=== PATIENT | female | born 1990 | race American Indian/Alaskan Native ===

== ENCOUNTER 2017-05-20 06:13 | Emergency (ER) | payer OTHER ==
[~2017-05-20] VITALS: Ht 172.7 cm; Wt 86.2 kg
--- OUTSIDE RECORDS SUMMARY | ~2017-05-20 | XMS | Clinical Summary ---
Demographics + + + | Address | [address] | | | [place] [address] | + + + | Home Phone | | + + + | Preferred Language | Unknown | + + + | Marital Status | Single | + + + | Christianity Affiliation | Unknown | + + + | Race | White | + + + | Ethnic Group | Not or | + + + Author + + + | Author | [facility] | + + + | Organization | [facility] | + + + | Address | Unknown | + + + | Phone | Unavailable | + + + Support + + + + + | Name | Relationship | Address | Phone | + + + + + | , JESSE DIAZ | ECON | [address] | | | | | [place] | | | | | [address] | | + + + + + | JOE WILSON | ECON | [address] | | | | | [place] | | | | | [address] | | + + + + + Care Team Providers + +------+-------+ | Care Truck Loader Name | Role | Phone | + +------+-------+ | Robert Zelaya | PP | tel | + +------+-------+ Source Comments COOKIE is fully live on both EpicCare Ambulatory and EpicCare InPatient.[facility] Allergies + + + + + + | Active Allergy | Reactions | Severity | Noted | Comments | | | | | Date | | + + + + + + | Pollen Extracts | | | 02/22/20 | | | | | | 09 | | + + + + + + Current Medications No known medications Active Problems + + + | Problem | Noted Date | + + + | Congenital insufficiency of aortic valve | 02/22/2005 | + + + + + | Overview: RTC 2 YR, TEST= ECHO | + + + + + | Congenital stenosis of aortic valve | 02/22/2005 | + + + Social History + +-------+ [...] Filed Vital Signs + + + + | Vital Sign | Reading | Time Taken | + + + + | Blood Pressure | 123/58 | 03/01/2015 10:08 AM PDT | + + + + | Pulse | 64 | 03/01/2015 10:08 AM PDT | + + + + | Temperature | 36.7 C (98 F) | 03/01/2015 10:08 AM PDT | + + + + | Respiratory Rate | 16 | 01/04/2011 9:30 AM PDT | + + + + | Oxygen Saturation | 99% | 03/01/2015 10:08 AM PDT | + + + + | Inhaled Oxygen | - | - | | Concentration | | | + + + + | Weight | 94.3 kg (208 lb) | 03/01/2015 10:08 AM PDT | + + + + | Height | 172.7 cm (5' 8") | 03/01/2015 10:08 AM PDT | + + + + | Body Mass Index | 31.63 | 03/01/2015 10:08 AM PDT | + + + + Plan of Treatment + + + + + | Health Maintenance | Due Date | Last Done | Comments | + + + + + | INFLUENZA VACCINE | | | | | (FLU SHOT) | 7 | | | + + + + + Results Not on filefrom Last 3 Months
[~2017-05-20 06:13] MED LIST: BACITRACIN15 GM TOP; MECLIZINE HCL25 MG PO; NORCO 5-325 TA1 EACH PO; PROMETHEGAN25 MG RC; TRANSDERM-SCOP1 EA TD; ZOFRAN ODT4 MG SL; ZOFRAN ODT8 MG PO
--- NOTE | 2017-05-20 16:31 | EKG ---
[facility] [address] [facility] [place], [place] [address] Signed Normal sinus rhythm with sinus arrhythmia Normal ECG No previous ECGs available Confirmed by LALO FLORES MD ([id number]) on 05/20/2017 4:31:39 PM Electronically Signed By: LALO FLORES MD 05/20/17 1631 PATIENT NAME: YEMI DIAZ Electrocardiogram DATE OF : 89 PHYSICIAN: LALO FLORES MD REPORT #: [id number] REPORT IS CONFIDENTIAL AND NOT TO BE RELEASED WITHOUT AUTHORIZATION
== END 2017-05-20 07:15 | disposition home or self-care (01) ==
LOC: ED 06:13
DX: R07.89 Other chest pain (principal); F17.200 Nicotine dependence, unspecified, uncomplicated
CPT/HCPCS: 71020; 93005; 93010; 99283

== ENCOUNTER 2020-02-03 19:50 | Emergency (ER) | payer OTHER ==
[~2020-02-03] VITALS: Ht 172.7 cm; Wt 83.9 kg
--- OUTSIDE RECORDS SUMMARY | ~2020-02-03 | XMS | Encounter Summary ---
Demographics + + + | Address | [address] | | | [place] [address] | + + + | Home Phone | | + + + | Preferred Language | Unknown | + + + | Marital Status | Single | + + + | Latter Day Affiliation | Unknown | + + + | Race | White | + + + | Ethnic Group | Not or | + + + Author + + + | Author | [facility] | + + + | Organization | [facility] | + + + | Address | Unknown | + + + | Phone | Unavailable | + + + Support + + + + + | Name | Relationship | Address | Phone | + + + + + | Rhona Douglas | ECON | [address] | | | | | [place] | | | | | [address] | | + + + + + | David Douglas | MARTA | [address] | | | | | [place] | | | | | [address] | | + + + + + Care Team Providers + +------+ + | Care Cleaning And Maintenance Worker Name | Role | Phone | + +------+ + | Sabrina Olvera | PCP | | + +------+ + Encounter Details +--------+ + + + + | Date | Type | Department | Care Team | Description | +--------+ + + + + | 08/03/ | Results | Pediatric | Isiah Jhonny Madrigal, | | | 2006 | Only | Cardiology at | MD | | | | | [place] | | | | | | [facility] | | | | | | [address] | | | | | | [place] | | | | | | [facility] | | | | | | 7th Floor [place], | | | | | | [place] [address] | | | | | | [phone] | | | +--------+ + + + + Social History + +-------+ +--------+------+ | Tobacco Use | Types | Packs/Day | Years | Date | | | | | Used | | + +-------+ +--------+------+ | Never Assessed | | | | | + +-------+ +--------+------+ + + + | Sex Assigned at | Date Recorded | | | | + + + | Not on file | | + + + + + + + | Job Start Date | Occupation | Industry | + + + + | Not on file | Not on file | Not on file | + + + + + + + + | Travel History | Travel Start | Travel End | + + + + + + | No recent travel history available. | + + documented as of this encounter Plan of Treatment + +------+--------+ + + | Name | Type | Priori | Associated Diagnoses | Date/Time | | | | ty | | | + +------+--------+ + + | TRANSTHORACIC | ECG | Routin | | 02/13/2007 12:05 PM | | ECHOCARDIOGRAM | | e | | PDT | | OUTREACH, PEDS | | | | | | (RESERVED FOR | | | | | | OUTREACH SERVICES | | | | | | ONLY) | | | | | + +------+--------+ + + documented as of this encounter Visit Diagnoses Not on filedocumented in this encounter"
--- OUTSIDE RECORDS SUMMARY | ~2020-02-03 | XMS | Encounter Summary ---
Demographics + + + | Address | [address] | | | [place] [address] | + + + | Home Phone | | + + + | Preferred Language | Unknown | + + + | Marital Status | Single | + + + | Rastafari Affiliation | Unknown | + + + | Race | White | + + + | Ethnic Group | Not or | + + + Author + + + | Author | [facility] | + + + | Organization | [facility] | + + + | Address | Unknown | + + + | Phone | Unavailable | + + + Support + + + + + | Name | Relationship | Address | Phone | + + + + + | Rhona Doulgas | ECON | [address] | | | | | [place] | | | | | [phone] | | + + + + + | David Douglas | MARTA | [address] | | | | | [place] | | | | | [phone] | | + + + + + Care Team Providers + +------+ + | Care Relationship Manager Name | Role | Phone | + +------+ + | Sabrina Olvera | PCP | | + +------+ + Reason for Referral Diagnostic Testing (Routine) +--------+--------+ + + + + | Status | Reason | Specialty | Diagnoses / | Referred By | Referred To | | | | | Procedures | Contact | Contact | +--------+--------+ + + + + | Closed | | Pediatric | Diagnoses | [place], | Ped Echo | | | | Cardiology | Congenital | Jhonny Madrigal MD | [facility] [address] | | | | | stenosis of | [address] [facility] [address] | | | | | aortic valve | [address] | [place] | | | | | Congenital | [address] | Children's | | | | | | [place], [place] | [facility] 8th | | | | | insufficienc | [address] | Floor | | | | | y of aortic | | [place], [place] | | | | | valve | | [address] | | | | | Procedures | | Phone: | | | | | TRANSTHORACI | | [phone] | | | | | C | | Fax: | | | | | ECHOCARDIOGR | | [phone] | | | | | AM, PEDS | | | +--------+--------+ + + + + Encounter Details +--------+ + + + + | Date | Type | Department | Care Team | Description | +--------+ + + + + | 01/31/ | Teletype Or Varitype Keyboard Operator | Pediatric | Jhonny Joyce, | Congenital Stenosis | | 2008 | | Cardiology at | MD | of Aortic Valve; | | | | [place] | | Congenital | | | | [facility] | | Insufficiency of | | | | [address] [facility] | | Aortic Valve | | | | [place] | | | | | | [facility] | | | | | | 7th Floor [place], | | | | | | [place] [address] | | | | | | [phone] | | | +--------+ + + + [...] | TRANSTHORACIC | ECG | Routin | Congenital | 01/31/2009 7:48 AM | | ECHOCARDIOGRAM, PEDS | | e | Stenosis of Aortic | PDT | | | | | Valve Congenital | | | | | | Insufficiency of | | | | | | Aortic Valve | | + +------+--------+ + + documented as of this encounter Visit Diagnoses + + | Diagnosis | + + | Congenital stenosis of aortic valve | + + | Congenital insufficiency of aortic valve | + + documented in this encounter"
--- OUTSIDE RECORDS SUMMARY | ~2020-02-03 | XMS | Encounter Summary ---
Demographics + + + | Address | [address] | | | [place] [address] | + + + | Home Phone | | + + + | Preferred Language | Unknown | + + + | Marital Status | Single | + + + | Anglican Affiliation | Unknown | + + + | Race | White | + + + | Ethnic Group | Not or | + + + Author + + + | Author | [facility] | + + + | Organization | [facility] | + + + | Address | Unknown | + + + | Phone | Unavailable | + + + Support + + + + + | Name | Relationship | Address | Phone | + + + + + | Rhona Douglas | ECON | [address] | | | | | [place] | | | | | [address] | | + + + + + | David Douglas | MARTA | [address] | | | | | [place] | | | | | [phone] | | + + + + + Care Team Providers + +------+ + | Care Floor Care Technician Name | Role | Phone | + +------+ + | Sabrina Olvera | PCP | | + +------+ + Reason for Visit + + + | Reason | Comments | + + + | Refill Request | | + + + Encounter Details +--------+--------+ + + + | Date | Type | Department | Care Team | Description | +--------+--------+ + + + | 06/20/ | Refill | Pediatric | Jhonny Joyce, | Refill Request | | 2008 | | Cardiology at | | | | | | [place] | | | | | | [facility] | | | | | | [address] | | | | | | [place] | | | | | | [facility] | | | | | | 7th Floor [place], | | | | | | [place] [address] | | | | | | [phone] | | | +--------+--------+ + + + Social History + +-------+ [...] as of this encounter Plan of Treatment Not on filedocumented as of this encounter Visit Diagnoses Not on filedocumented in this encounter"
--- OUTSIDE RECORDS SUMMARY | ~2020-02-03 | XMS | Encounter Summary ---
Demographics + + + | Address | [address] | | | [place] [address] | + + + | Home Phone | | + + + | Preferred Language | Unknown | + + + | Marital Status | Single | + + + | Mormon Affiliation | Unknown | + + + | Race | White | + + + | Ethnic Group | Not or | + + + Author + + + | Author | [facility] | + + + | Organization | [facility] | + + + | Address | Unknown | + + + | Phone | Unavailable | + + + Support + + + + + | Name | Relationship | Address | Phone | + + + + + | Rhona Douglas | ECON | [address] | | | | | [place] | | | | | [address] | | + + + + + | David Douglas | MARTA | [address] | | | | | [place] | | | | | [phone] | | + + + + + Care Team Providers + +------+ + | Care Flume Ride Operator Name | Role | Phone | + +------+ + | Robert Zelaya | PCP | | + +------+ + Reason for Visit Diagnostic Testing (Routine) +--------+--------+ + + + + | Status | Reason | Specialty | Diagnoses / | Referred By | Referred To | | | | | Procedures | Contact | Contact | +--------+--------+ + + + + | Closed | | Cardiology | Diagnoses | [place], | Car Echo | | | | | Congenital | Wilfred Wilder MD | [facility] [address] | | | | | insufficienc | [address] | | | | | y of aortic | Ave | [address] | | | | | valve | [place], [place] | [place] | | | | | Congenital | [address] | [facility], 2nd | | | | | stenosis of | Phone: | floor | | | | | aortic valve | [phone] | [place], [place] | | | | | Procedures | Fax: | [address] | | | | | | [phone] | Phone: | | | | | TRANSTHORACI | | [phone] | | | | | C | | | | | | | ECHOCARDIOGR | | | | | | | AM, ADULT | | | +--------+--------+ + + + + Encounter Details +--------+ + + + + | Date | Type | Department | Care Team | Description | +--------+ + + + + | 01/13/ | Hospital | Cardiac | | | | 2012 | Encounter | Non-Invasive Testing | | | | | | at [facility] [address] | | | | | | Ave [facility] | | | | | | [facility]aling, | | | | | | [address] | | | | | | [place], [place] | | | | | | [address] | | | | | | [phone] | | | +--------+ + + + [...] + + documented as of this encounter Vee Flores - 01/13/2013 10:51 AM PDTTransthoracic echocardiogram was completed today. Final report to follow. documented in this encoun ter Plan of Treatment Not on filedocumented as of this encounter Procedures + +--------+ + + + | Procedure Name | Priori | Date/Time | Associated Diagnosis | Comments | | | ty | | | | + +--------+ + + + | TRANSTHORACIC | Routin | 01/13/2013 | Congenital | Results for this | | ECHOCARDIOGRAM, | e | 12:00 AM | insufficiency of | procedure are in the | | ADULT | | PDT | aortic valve | results section. | | | | | Congenital stenosis | | | | | | of aortic valve | | + +--------+ + + + documented in this encounter Results TRANSTHORACIC ECHOCARDIOGRAM, ADULT (01/13/2013 12:00 AM PDT) + + + | Narrative | Performed At | + + + | | | | | | + + + + + | Procedure Note | + + | Mahnaz Toledo - 01/13/2013 12:49 PM PDT | + + documented in this encounter Visit Diagnoses + + | Diagnosis | + + | Congenital insufficiency of aortic valve - Primary | + + | Congenital stenosis of aortic valve | + + documented in this encounter"
--- OUTSIDE RECORDS SUMMARY | ~2020-02-03 | XMS | Encounter Summary ---
Demographics + + + | Address | [address] | | | [place] [address] | + + + | Home Phone | | + + + | Preferred Language | Unknown | + + + | Marital Status | Single | + + + | Samaritan Affiliation | Unknown | + + + | Race | White | + + + | Ethnic Group | Not or | + + + Author + + + | Author | [facility] | + + + | Organization | [facility] | + + + | Address | Unknown | + + + | Phone | Unavailable | + + + Support + + + + + | Name | Relationship | Address | Phone | + + + + + | Rhona Douglas | ECON | [address] | | | | | [place] | | | | | [address] | | + + + + + | David Douglas | MARTA | [address] | | | | | [place] | | | | | [address] | | + + + + + Care Team Providers + +------+ + | Care White Washer Name | Role | Phone | + +------+ + | Karine Vega MD | PCP | | + +------+ + [...] | Congenital | Wilfred Wilder MD | [facility] [address] | | | | | insufficienc | [address] | [address] | | | | | y of aortic | Ave | [address] | | | | | valve | [place], [place] | [place] | | | | | Congenital | [address] | Building, 2nd | | | | | stenosis of | Phone: | floor | | | | | aortic valve | [phone] | [place], [place] | | | | | Procedures | Fax: | [address] | | | | | | [phone] | Phone: | | | | | TRANSTHORACI | | [phone] | | | | | C | | | | | | | ECHOCARDIOGR | | | | | | | AM, ADULT | | | +--------+--------+ + + + + Encounter Details +--------+ + + + + | Date | Type | Department | Care Team | Description | +--------+ + + + + | 09/02/ | Research Biologist | Cardiology [facility] at | [place], Wilfred S, | Congenital | | 2012 | | [address] | MD [address] | insufficiency of | | | | Ave [facility] for | [place], [place] | aortic valve | | | | [facility], | [address] | (Primary Dx); | | | | | [phone] | Congenital stenosis | | | | Floor [facility] [place] | | of aortic valve | | | | [address] | | | | | | [phone] | | | +--------+ + + + [...]
--- OUTSIDE RECORDS SUMMARY | ~2020-02-03 | XMS | Encounter Summary ---
Demographics + + + | Address | [address] | | | [place] [address] | + + + | Home Phone | | + + + | Preferred Language | Unknown | + + + | Marital Status | Single | + + + | Christian Affiliation | Unknown | + + + | Race | White | + + + | Ethnic Group | Not or | + + + Author + + + | Author | [facility] | + + + | Organization | [facility] | + + + | Address | Unknown | + + + | Phone | Unavailable | + + + Support + + + + + | Name | Relationship | Address | Phone | + + + + + | Rhona Douglas | ECON | [address] | | | | | [place] | | | | | [address] | | + + + + + | David Douglas | ECON | [address] | | | | | [place] | | | | | [address] | | + + + + + Care Team Providers + +------+ + | Care State Auditor Name | Role | Phone | + +------+ + PCP | Unavailable | + +------+ + Encounter Details +--------+ + + + + | Date | Type | Department | Care Team | Description | +--------+ + + + + | 02/13/ | Office | [facility] | Note, Outpatient | Progress Note | | 2000 | Visit-Trans | MEDICINE | Clinic | | | | cribed | | | | +--------+ + + + [...] + + documented as of this encounter Progress Notes Interface, Croze Cutter In - 04/24/2006 3:08 AM PDTCLINIC DATE: 02/13/2001 SUBJECTIVE: Anusha is a young girl of 10-1/2 who is here today after an interval of 3 years in followup of her congenital heart disease, aortic insufficiency, and mild stenosis. She had been in [place] the last year and at that time was evaluated because she was having problems with chest pain. They did an echocardiogram and exercise study. The echocardiogram essentially showed what we had been seeing, mild aortic regurgitation and stenosis. The results of her exercise study were not included, and the mother states that she never got the result regarding this. Anusha has otherwise been well and is quite active and plays soccer. However, she has been having chest pain may be once a month. Most recently, she had this occur at rest, and she describes the pain as "heavy," and when I asked her to describe what heavy meant, she meant hard to breathe. I then asked her whether the pain was sharp or dull, and she related that it was sharp. The pain is at the upper sternum that she points to with a single finger. PHYSICAL EXAMINATION: GENERAL: She is in no acute distress. She is quite laconic. She is without cyanosis. VITAL SIGNS: She weighs 86.8 pounds. She is 56 inches tall. Blood pressure is 92/42; and heart rate is 68 per minute and regular. Her arterial saturation by pulse oximeter room air is 99%. ABDOMEN: Negative without hepatosplenomegaly. EXTREMITIES: She has pulses palpable in both upper and lower extremities, and they seem to be of equal amplitude, and they are synchronous. No edema is noted, no neck vein distension is noted. CARDIAC: Palpation of precordium reveals no overactivity nor thrill. Auscultation reveals normal heart sounds, normally split second sound. She has a systolic murmur in the third left interspace transmitted into the second right. At third left interspace, I hear easily a grade 2, immediate diastolic decrescendo murmur which persists through two-thirds of diastole at least. I could not be sure that I heard an Anatoliy Salters murmur though I tried. An echocardiogram is done and shows her to have mild aortic stenosis and moderate degree of aortic valve regurgitation. She has good ventricular function. Her left ventricle is slightly enlarged. ASSESSMENT: Because of the enlargement of her left ventricle, I thought that we should be considering vasodilator therapy for her and gave her a prescription for lisinopril to be taken 5 mg each evening. I asked the mother to let me know how she was getting along on this after a period of 1 month. I did discuss with her the major problem with lisinopril of lightheadedness on arising. PLAN: I will be hearing from her in 1 month and decide whether to continue her lisinopril at that time. She, at this time, can have full activity, and she should, of course, have prophylactic antibiotics when she is at risk of bacteremia to reduce the risk of bacterial endocarditis. Jhonny Joyce M.D. / IBETH [id number] / [id number] / [id number] / cc: [facility] [address] [place] [address] [id number] signed by Interface, Croze Cutter In at 04/24/2006 3:08 AM PDTdocume nted in this encounter Plan of Treatment Not on filedocumented as of this encounter Visit Diagnoses Not on filedocumented in this encounter
--- OUTSIDE RECORDS SUMMARY | ~2020-02-03 | XMS | Encounter Summary ---
Demographics + + + | Address | [address] | | | [place] [address] | + + + | Home Phone | | + + + | Preferred Language | Unknown | + + + | Marital Status | Single | + + + | Congregational Affiliation | Unknown | + + + | Race | White | + + + | Ethnic Group | Not or | + + + Author + + + | Author | [facility] | + + + | Organization | [facility] | + + + | Address | Unknown | + + + | Phone | Unavailable | + + + Support + + + + + | Name | Relationship | Address | Phone | + + + + + | Rhona Douglas | ECON | [address] | | | | | [place] | | | | | [address] | | + + + + + | David Douglas | MARTA | [address] | | | | | [place] | | | | | [address] | | + + + + + Care Team Providers + +------+ + | Care Ict Managers Name | Role | Phone | + +------+ + | Sabrina Olvera | PCP | | + +------+ + Encounter Details +--------+ + + + + | Date | Type | Department | Care Team | Description | +--------+ + + + + | 01/04/ | Hospital | Cardiac | Sjh, Car Ecg Tech | | | 2010 | Encounter | Non-Invasive Testing | [address] | | | | | at [facility] | [facility] | | | | | [address] | [place] [address] | | | | | [facility] | | | | | | [place], 2nd floor | | | | | | [place], [place] | | | | | | [address] | | | | | | [phone] | | | +--------+ + + + [...] Type | Priori | Associated Diagnoses | Order Schedule | | | | ty | | | + +------+--------+ + + | 30 DAY CARDIAC | ECG | Routin | Congenital | Ordered: 01/04/2011 | | MONITOR - ECG | | e | insufficiency of | | | | | | aortic valve | | | | | | Bicuspid aortic | | | | | | valve | | + +------+--------+ + + documented as of this encounter Visit Diagnoses Not on filedocumented in this encounter"
--- OUTSIDE RECORDS SUMMARY | ~2020-02-03 | XMS | Clinical Summary ---
Demographics + + + | Address | [address] | | | [place] [address] | + + + | Home Phone | | + + + | Preferred Language | Unknown | + + + | Marital Status | Single | + + + | Baptist Affiliation | Unknown | + + + | Race | Unknown | + + + | Ethnic Group | Unknown | + + + Author + + + | Author | [facility] [place] | | | and Mario Albertoana | + + + | Organization | [facility] [place] | | | and [place] | + + + | Address | Unknown | + + + | Phone | Unavailable | + + + Support + + + + + | Name | Relationship | Address | Phone | + + + + + | Kwame [place] | ECON | [address] | | | | | [place] | | | | | [address] | | + + + + + Care Team Providers + +------+ + | Care Alumni Relations Coordinator Name | Role | Phone | + +------+ + | Robert Zelaya PA-C | PCP | | + +------+ + Allergies No Known Allergies Medications No known medications Active Problems + + + | Problem | Noted Date | + + + | Bicuspid aortic valve | 09/01/2012 | + + + + + | Overview: Holter Monitor 2010 | | Echo 01/04/11, LVEF normal | + + + + + | Pre-syncope | 09/01/2012 | + + + Family History + +------+--------+ + | Relation | Name | Status | Comments | + +------+--------+ + | Father | | Alive | | + +------+--------+ + | Mother | | Alive | | + +------+--------+ + Social History + + + +--------+------+ | Tobacco Use | Types | Packs/Day | Years | Date | | | | | Used | | + + + +--------+------+ | Current Every Day | Cigarettes | 0.5 | 3 | | | Smoker | | | | | + + + +--------+------+ + +---+---+---+ | Smokeless Tobacco: | | | | | Never Used | | | | + +---+---+---+ + + +---------+ + | Alcohol Use | Drinks/Week | oz/Week | Comments | + + +---------+ + | No | | | | + + +---------+ + + + + | Sex Assigned at | Date Recorded | | | | + + + | Not on file | | + + + Last Filed Vital Signs + + + + + | Vital Sign | Reading | Time Taken | Comments | + + + + + | Blood Pressure | 112/70 | 09/28/2012 2:36 PM | right arm 106/72 | | | | PDT | | + + + + + | Pulse | 66 | 09/28/2012 2:36 PM | regular | | | | PDT | | + + + + + | Temperature | - | - | | + + + + + | Respiratory Rate | 14 | 09/28/2012 2:36 PM | | | | | PDT | | + + + + + | Oxygen Saturation | - | - | | + + + + + | Inhaled Oxygen | - | - | | | Concentration | | | | + + + + + | Weight | 86.2 kg (190 lb) | 09/28/2012 2:36 PM | | | | | PDT | | + + + + + | Height | 170.2 cm (5' 7") | 09/28/2012 2:36 PM | | | | | PDT | | + + + + + | Body Mass Index | 29.76 | 09/28/2012 2:36 PM | | | | | PDT | | + + + + + Plan of Treatment + + +-------+ + | Health Maintenance | Due Date | Last | Comments | | | | Done | | + + +-------+ + | Vaccine: | | | | | Dtap/Tdap/Td (1 - | 0 | | | | Tdap) | | | | + + +-------+ + | Cervical Cancer | | | | | Screening (Pap) | 2 | | | + + +-------+ + | Vaccine: Influenza | | | | | (#1) | 0 | | | + + +-------+ + Results Not on filefrom Last 3 Months Insurance + +--------+ +--------+-------+---------+--------+ | Payer | Benefi | Subscriber | Effect | Phone | Address | Type | | | t Plan | ID | chavez | | | | | | / | | Dates | | | | | | Group | | | | | | + +--------+ +--------+-------+---------+--------+ | [facility] [facility] | [employer] | [id number] | 08/18/19 | | | Indemn | | SERVICE | YELLOW | | 13-Pre | | | ity | | | HAWK | | sent | | | | + +--------+ +--------+-------+---------+--------+ + +--------+ +--------+ + + | Guarantor Name | Accoun | Relation to | Date | Phone | Billing Address | | | t Type | Patient | of | | | | | | | | | | + +--------+ +--------+ + + | Anusha Douglas | Person | Self [birth year] | [address] | | | al/Fam | | 1989 | [phone] | [place] [address] | | | nick | | | 4 (Home) | | | | | | | [phone] | | | | | | | 4 (Work) | | + +--------+ +--------+ + + Advance Directives + + + + + | Type | Date Recorded | Patient | Explanation | | | | Seismology Teacher | | + + + + + | Power of | | | | | Pump Station Operator | | | | + + + + +
--- OUTSIDE RECORDS SUMMARY | ~2020-02-03 | XMS | Encounter Summary ---
Demographics + + + | Address | [address] | | | [place] [address] | + + + | Home Phone | | + + + | Preferred Language | Unknown | + + + | Marital Status | Single | + + + | Temple Affiliation | Unknown | + + + [...] [place] | | | | | [phone] | | + + + + + | David [place] | ECON | [address] | | | | | [place] | | | | | [address] | | + + + + + Care Team Providers + +------+ + | Care Registered Physical Therapist Name | Role | Phone | + +------+ + | Sabrina Olvera | PCP | | + +------+ + Reason for Visit + + + | Reason | Comments | + + + | Social work | | | consultation | | + + + Encounter Details +--------+ + + + + | Date | Type | Department | Care Team | Description | +--------+ + + + + | 04/16/ | Telephone | HOSPITAL CASE | Charlie Dupont [address] | Social work | | 2009 | | MANAGEMENT [address] [facility] | consultation | | | | [facility] | [address] [place], [place] | | | | | [place], [place] | [address] | | | | | [address] | | | +--------+ + + + [...]
--- OUTSIDE RECORDS SUMMARY | ~2020-02-03 | XMS | Encounter Summary ---
Demographics + + + | Address | [address] | | | [place] [address] | + + + | Home Phone [...] Author + + + | Author | [facility] | + + + | Organization | [facility] | + + + | Address | Unknown | + + + | Phone | Unavailable | + + + Support + + + + + | Name | Relationship | Address | Phone | + + + + + | Rhona Douglas | ECON | [address] | | | | | [place] | | | | | [address] | | + + + + + | David Douglas | [place] | [address] | | | | | [place] | | | | | [address] | | + + + + + Care Team Providers + +------+ + | Care Superintendent Fish Hatchery Name | Role | Phone | + +------+ + | Sabrina Olvera | PCP | | + +------+ + Encounter Details +--------+ + + + + | Date | Type | Department | Care Team | Description | +--------+ + + + + | 02/03/ | Office | Pediatric | Jhonny Joyce, | Progress Note | | 2008 | Visit-Trans | Cardiology at | | | | | raiza | [facility] | | | | | | [facility] | | | | | | [address] | | | | | | [place] | | | | | | [facility] | | | | | | 7th Floor [place], | | | | | | [place] [address] | | | | | | [phone] | | | +--------+ + + + [...] documented as of this encounter Progress Notes Jhonny Joyce MD - 02/04/2009 9:43 AM PDT [id number] JOE ANUSHA [id number] Clinic Date: 02/03/2009 Clinic: [facility] History: Anusha is now 18. She is a young girl who we have been following with diagnosis of bicuspid aortic valve, mild stenosis and regurgitation. It is also of note that she has a dilated aorta. In the interim, since we saw her last, she has had no problems relative to her heart. She complains of chest pain this past week which she describes as a sharp pain relieved by little pressure on her chest. This lasts for about 5 minutes and comes and goes most often when she is sitting around. Physical Examination: She is in no distress without cyanosis. She weighs 138.5 pounds, she is 67-1/2 inches tall, respiratory rate is 16 per minute, blood pressure is 108/54, heart rate is 58 per minute and regular, and her arterial saturation by pulse oximeter at room air is 100%. Palpation of the precordium reveals no overactivity nor thrill. Abdominal examination is without hepatosplenomegaly, masses, or tenderness. She has good pulses in both upper and lower extremities. She manifests no edema and no neck vein distention. Venous pressure is estimated to be at about 8 cm of water. Lungs are clear to auscultation. Cardiac auscultation reveals normal heart sounds and a grade 1 immediate diastolic murmur at the third left interspace very well localized and difficult to hear. You can appreciate it only by using subtraction listening elsewhere and then going back to hear the high-pitched, blowing, grade 1 murmur. Laboratory Data: Her echocardiogram is essentially unchanged from that of a year ago. She has a slightly thickened aortic valve. It was difficult to really see if there are 3 cups or 2 cusps, but certainly, it functions as a bicuspid valve, and her ascending aorta is mildly dilated. She has a qcqg-cf-qzzgjobt degree of aortic valve regurgitation and no significant stenosis. This is unchanged. Assessment and Plan: Currently, at this time, Anusha is doing well, and there is no reason to restrict her in any way. I talked with her about her situation and related that she should have continued followup as she enters adulthood and that this should follow her wherever she might eventually end up geographically. We will plan to see her again in 1 year and will continue to follow her as we can through our offices in [place]. Jhonny Joyce M.D. Professor of Pediatrics Division of Pediatric Cardiology [facility] VM / HS [id number] / [id number] / [id number] / cc: Sabrina Olvera M.D. [facility] [address] [place] [address] documented in this encounter Plan of Treatment Not on filedocumented as of this encounter Visit Diagnoses Not on filedocumented in this encounter"
--- OUTSIDE RECORDS SUMMARY | ~2020-02-03 | XMS | Encounter Summary ---
Demographics + + + | Address | [address] | | | [place] [address] | + + + | Home Phone | | + + + | Preferred Language | Unknown | + + + | Marital Status | Single | + + + | Sabianist Affiliation | Unknown | + + + [...] [place] | | | | | [phone] | | + + + + + | [place] | [place] | [address] | | | | | [place] | | | | | [address] | | + + + + + Care Team Providers + +------+ + | Care Fire Dispatcher Name | Role | Phone | + +------+ + | Robert Zelaya | PCP | | + +------+ + Reason for Visit +--------+ + | Reason | Comments | +--------+ + | Other | Order needed for coverage | +--------+ + Encounter Details +--------+ + + + + | Date | Type | Department | Care Team | Description | +--------+ + + + + | 02/14/ | Telephone | Cardiology [facility] at | Wilfred Christiansen, | Other (Order needed | | 2014 | | [facility] [address] | MD [address] | for coverage) | | | | [facility] for | [place], [place] | | | | | Health and Healing, | [address] | | | | | | [phone] | | | | | Floor [place], [place] | | | | | | [address] | | | | | | [phone] | | | +--------+ + + + [...]
--- OUTSIDE RECORDS SUMMARY | ~2020-02-03 | XMS | Encounter Summary ---
Demographics + + + | Address | [address] | | | [place] [address] | + + + | Home Phone | | + + + | Preferred Language | Unknown | + + + | Marital Status | Single | + + + | Orthodoxy Affiliation | Unknown | + + + [...] [place] | | | | | [address] | | + + + + + | David Douglas | [place] | [address] | | | | | [place] | | | | | [address] | | + + + + + Care Team Providers + +------+ + | Care Dividend Clerk Name | Role | Phone | + [...] | Congenital | Wilfred Wilder MD | [facility] [address] | | | | | insufficienc | [address] | [address] | | | | | y of aortic | Ave | [address] | | | | | valve | [place], [place] | [place] | | | | | Congenital | [address] | Building, 2nd | | | | | stenosis of | Phone: | floor | | | | | aortic valve | [phone] | [place], [place] | | | | | Procedures | Fax: | [address] | | | | | | [phone] | Phone: | | | | | TRANSTHORACI | | [phone] | | | | | C | | | | | | | ECHOCARDIOGR | | | | | | | AM, ADULT | | | +--------+--------+ + + + + Encounter Details +--------+ + + + + | Date | Type | Department | Care Team | Description | +--------+ + + + + | 09/02/ | Senior Mechanical Estimator | Cardiology [facility] at | Broberg, Wilfred S, | Congenital | | 2012 | | [address] | MD [address] | insufficiency of | | | | Ave [facility] for | [place], [place] | aortic valve | | | | Health and Healing, | [address] | (Primary Dx); | | | | | [phone] | Congenital stenosis | | | | Floor [facility] [place] | | of aortic valve | | | | [address] | | | | | | [phone] | | | +--------+ + + + [...]
--- OUTSIDE RECORDS SUMMARY | ~2020-02-03 | XMS | Encounter Summary ---
Demographics + + + | Address | [address] | | | [place] [address] | + + + | Home Phone | | + + + | Preferred Language | Unknown | + + + | Marital Status | Single | + + + | Muslim Affiliation | Unknown | + + + | Race | White | + + + | Ethnic Group | Not or | + + + Author + + + | Author | [facility] | + + + | Organization | [facility] | + + + | Address | Unknown | + + + | Phone | Unavailable | + + + Support + + + + + | Name | Relationship | Address | Phone | + + + + + | Rhona Douglas | ECON | [address] | | | | | [place] | | | | | [address] | | + + + + + | [place] Douglas | ECON | [address] | | | | | [place] | | | | | [address] | | + + + + + Care Team Providers + +------+ + | Care Abrasive Grader Name | Role | Phone | + +------+ + PCP | Unavailable | + +------+ + Encounter Details +--------+ + + + + | Date | Type | Department | Care Team | Description | +--------+ + + + + | 04/18/ | Office | UNKNOWN DEPARTMENT | Note, Outpatient | Progress Note | | 1993 | Visit-Trans | [address] | Clinic | | | | raiza | [address] | | | | | | [place], [place] | | | | | | [address] | | | +--------+ + + + [...] as of this encounter Progress Notes Interface, Pump Tender In - 11/08/2006 5:01 AM PDT CLINIC DATE: 04/18/94 [facility] PEDIATRIC CARDIOLOGY [facility] Anusha is now almost [age]. She has a diagnosis of aortic valve abnormality. When we last saw her, her gradient across the valve was between 25 and 30 mmHg. In the interim since we saw her last, she has continued to get along well. She is asymptomatic with regard to any cardiac symptomatology. On examination, she weighs 31 pounds. She is 38 inches tall. Blood pressure is 102/50. Heart rate is 110 per minute. Her precordium is quiet without overactivity. She has a faint thrill in the supramanubrial notch. She has good pulses in both upper and lower extremities. Abdominal examination is negative without hepatosplenomegaly. On auscultation, she has a systolic ejection murmur of a Grade III intensity which is heard at the third left interspace and transmitted into the second right. There is a questionable faint Grade I short immediate diastolic murmur at the third left interspace. The second heart sound is split and moves normally with respiration and is narrowly split. No S3 or S4 is heard. An echocardiogram was done revealing a gradient similar to that noted a year ago and a faint degree of aortic valve regurgitation. Anusha is doing very well. She has mild aortic valve abnormality with mild stenosis and a trivial aortic valve regurgitation at this time. She should be followed conservatively. We should see her again in one year's time for an electrocardiogram and reexamination. She should have prophylactic antibiotics when she is at risk of bacteremia to prevent bacterial endocarditis. She should not be restricted in her activities at this time. Jhonny Joyce M.D. Pediatric Cardiology VDM:adam cc: [facility] documented in this encounter Plan of Treatment Not on filedocumented as of this encounter Visit Diagnoses Not on filedocumented in this encounter"
--- OUTSIDE RECORDS SUMMARY | ~2020-02-03 | XMS | Encounter Summary ---
Demographics + + + | Address | [address] | | | [place] [address] | + + + | Home Phone | | + + + | Preferred Language | Unknown | + + + | Marital Status | Single | + + + | Taoist Affiliation | Unknown | + + + [...] [place] | | | | | [address] | | + + + + + | David Douglas | ECON | [address] | | | | | [place] | | | | | [address] | | + + + + + Care Team Providers + +------+ + | Care Curing Oven Tender Name | Role | Phone | + +------+ + PCP | Unavailable | + +------+ + Encounter Details +--------+ + + + + | Date | Type | Department | Care Team | Description | +--------+ + + + + | 05/03/ | Office | [facility] | Note, Outpatient | Progress Note | | 1997 | Visit-Trans | MEDICINE | Clinic | [...] as of this encounter Progress Notes Interface, It Programmer Analyst In - 07/21/2006 5:07 AM PSTCLINIC DATE: 05/03/1998 [facility] [place] Anusha is now 7 years old. She is seen today after an interval of 2 years. We follow her with a diagnosis of mild aortic stenosis and regurgitation. In the interim since we saw her, she has had no cardiac symptoms or signs. She is a very active girl. She currently is in the first grade and appears to be doing well. On examination, she is alert in no distress without cyanosis. She weighs 53 pounds. She is 49" tall. Blood pressure is 98/55. Heart rate is 97 beats per minute and regular. Arterial saturation by pulse oximeter at room air is 98%. Palpation of the precordium reveals no overactivity or thrill. There is a faint thrill palpable is the supramanubrial notch. Abdominal examination is negative without hepatosplenomegaly. She has good pulses in both upper and lower extremities. The femoral and brachial pulses are synchronous and of equal amplitude. No edema is noted. No neck vein distention is noted. Her lungs are clear to auscultation. On auscultation of her heart, she has a systolic ejection murmur that I hear in the 3rd left interspace and transmitted into the 2nd interspace. The 2nd heart sounds are normally split without accentuation of the pulmonary component. Immediately after the 2nd sound is a brief, high-pitched, blowing diastolic decrescendo murmur at the 3rd left interspace. An echocardiogram was done and showed no significant change in the degree of narrowing of her aortic valve. There is a moderate degree of aortic valve regurgitation. At this time, Anusha continues to do well. She does have an aortic valve abnormality, which seems to be manifesting as we progress more with regurgitation than stenosis. We will continue to observe her conservatively. At this time, there need be no restriction of her activities in any way. She should have prophylactic antibiotics when she is at risk of bacteremia to prevent bacterial endocarditis. We will plan to see her again in 2 years' time for a follow-up and at that time, we will repeat her echo. Jhonny Joyce M.D. Professor, Pediatric Cardiology DEVANTE/leanne cc: [facility] [address] [place] [id number] signed by Interface, It Programmer Analyst In at 07/21/2006 5:07 AM PSTdocumented in this encounter Plan of Treatment Not on filedocumented as of this encounter Visit Diagnoses Not on filedocumented in this encounter
--- OUTSIDE RECORDS SUMMARY | ~2020-02-03 | XMS | Encounter Summary ---
Demographics + + + | Address | [address] | | | [place] [address] | + + + | Home Phone | | + + + | Preferred Language | Unknown | + + + | Marital Status | Single | + + + | Moravian Affiliation | Unknown | + + + | Race | White | + + + | Ethnic Group | Not or | + + + Author + + + | Author | [facility] | + + + | Organization | [facility] | + + + | Address | Unknown | + + + | Phone | Unavailable | + + + Support + + + + + | Name | Relationship | Address | Phone | + + + + + | Rhona Douglas | ECON | [address] | | | | | [place] | | | | | [address] | | + + + + + | David Douglas | [place]ART[place] | [address] | | | | | [place] | | | | | [address] | | + + + + + Care Team Providers + +------+ + | Care Station Cook Name | Role | Phone | + +------+ + | Sabrina Olvera | PCP | | + +------+ + Encounter Details +--------+ + + + + | Date | Type | Department | Care Team | Description | +--------+ + + + + | 08/03/ | Office | UNKNOWN DEPARTMENT | Note, Outpatient | Progress Note | | 2006 | Visit-Trans | [address] | [facility] | | | | raiza | [address] | | | | | | [place], [place] | | | | | | [address] | | | +--------+ + + + [...] as of this encounter Progress Notes Interface, Production Technician In - 03/24/2007 2:25 AM TAMICA [id number] [facility] ANUSHA [id number] Clinic Date: 02/13/2007 Clinic: [facility] Briefly, Anusha was asymptomatic, had no cardiac symptoms or signs. She is followed with the diagnosis of mild aortic valve abnormality with stenosis and mild regurgitation. She has been on lisinopril 5 mg daily and takes this with consistency. Physical Examination: She is in no distress without cyanosis. She weighs 145-1/2 pounds. She is 67 inches tall. Heart rate is 54 per minute, and her arterial saturation by pulse oximeter room air is 99%. Her cardiac findings are no different than those noted previously. She does have an immediate diastolic murmur heard at the third left interspace. No Anatoliy [place] murmur is heard. She has a short systolic murmur in the aortic area which is of grade 2 intensity. She did have an echocardiogram, and this showed no significant change from her previous echocardiogram. She is doing quite well and will be seen again in 1 year for followup. Jhonny Joyce M.D. Professor of Pediatrics Division of Pediatric Cardiology [facility] / [id number] / [id number] / [id number] / [id number] Electronically signed by Jhonny Joyce 03-23-2007 07:38:29 AM documented in this encounter Plan of Treatment Not on filedocumented as of this encounter Visit Diagnoses Not on filedocumented in this encounter"
--- OUTSIDE RECORDS SUMMARY | ~2020-02-03 | XMS | Encounter Summary ---
Demographics + + + | Address | [address] | | | [place] [address] | + + + | Home Phone | | + + + | Preferred Language | Unknown | + + + | Marital Status | Single | + + + | Mormonism Affiliation | Unknown | + + + | Race | White | + + + | Ethnic Group | Not or | + + + Author + + + | Author | [facility] | + + + | Organization | [facility] | + + + | Address | Unknown | + + + | Phone | Unavailable | + + + Support + + + + + | Name | Relationship | Address | Phone | + + + + + | Rhona Douglas | ECON | [address] | | | | | [place] | | | | | [address] | | + + + + + | David Douglas | ECON | [address] | | | | | [place] | | | | | [address] | | + + + + + Care Team Providers + +------+ + | Care Mixing Picker Tender Name | Role | Phone | + +------+ + | Sabrina Olvera | PCP | | + +------+ + Encounter Details +--------+ + + + + | Date | Type | Department | Care Team | Description | +--------+ + + + + | 01/21/ | Hospital | Pediatric Echo Lab | | | | 2007 | Encounter | at [facility] | | | | | | [facility] | | | | | | [address] [facility] | | | | | | [place] | | | | | | [facility] | | | | | | [address] [facility], | | | | | | [place] [address] | | | | | | [phone] | | | +--------+ + + + [...] | + +--------+ + + + | ECHO PROCEDURE | | 01/22/2008 | | Results for this | | | | 11:59 PM | | procedure are in the | | | | PDT | | results section. | + +--------+ + + + documented in this encounter Results ECHO PROCEDURE (01/22/2008 11:59 PM PDT) + + + | Narrative | Performed At | + + + | | | + + + + + | Procedure Note | + + | Mahnaz Toledo - 01/22/2008 11:59 PM PDT | + + documented in this encounter Visit Diagnoses Not on filedocumented in this encounter"
--- OUTSIDE RECORDS SUMMARY | ~2020-02-03 | XMS | Encounter Summary ---
Demographics + + + | Address | [address] | | | [place] [address] | + + + | Home Phone | | + + + | Preferred Language | Unknown | + + + | Marital Status | Single | + + + | Episcopalian Affiliation | Unknown | + + + | Race | White | + + + | Ethnic Group | Not or | + + + Author + + + | Author | [facility] | + + + | Organization | [facility] | + + + | Address | Unknown | + + + | Phone | Unavailable | + + + Support + + + + + | Name | Relationship | Address | Phone | + + + + + | Rhona Douglas | ECON | [address] | | | | | [place] | | | | | [address] | | + + + + + | David Douglas | ECON | [address] | | | | | [place] | | | | | [address] | | + + + + + Care Team Providers + +------+ + | Care Evaluator Transfer Students Name | Role | Phone | + +------+ + | Sabrina Olvera | PCP | | + +------+ + Encounter Details +--------+ + + + + | Date | Type | Department | Care Team | Description | +--------+ + + + + | 01/04/ | Hospital | Pediatric Echo Lab | | | | 2010 | Encounter | at [place] | | | | | | [facility] | | | | | | [address] [facility] | | | | | | [place] | | | | | | [facility] | | | | | | [address] [facility], | | | | | | [place] [address] | | | | | | [phone] | | | +--------+ + + + [...] +--------+ + + + | TRANSTHORACIC | | 01/04/2011 | | Results for this | | ECHOCARDIOGRAM, PEDS | | 12:00 AM | | procedure are in the | | | | PDT | | results section. | + +--------+ + + + documented in this encounter Results TRANSTHORACIC ECHOCARDIOGRAM, PEDS (01/04/2011 12:00 AM PDT) + + + | Narrative | Performed At | + + + | | | + + + + + | Procedure Note | + + | [place], Faculty - 01/04/2011 10:01 AM PDT | | | + + documented in this encounter Visit Diagnoses Not on filedocumented in this encounter"
--- OUTSIDE RECORDS SUMMARY | ~2020-02-03 | XMS | Encounter Summary ---
Demographics + + + | Address | [address] | | | [place] [address] | + + + | Home Phone | | + + + | Preferred Language | Unknown | + + + | Marital Status | Single | + + + | Rastafarian Affiliation | Unknown | + + + | Race | White | + + + | Ethnic Group | Not or | + + + Author + + + | Author | [facility] | + + + | Organization | [facility] | + + + | Address | Unknown | + + + | Phone | Unavailable | + + + Support + + + + + | Name | Relationship | Address | Phone | + + + + + | Rhona Douglas | ECON | [address] | | | | | [place] | | | | | [address] | | + + + + + | David Douglas | MARTA | [address] | | | | | [place] | | | | | [address] | | + + + + + Care Team Providers + +------+ + | Care Explosion Welder Name | Role | Phone | + [...] [place] | | | | | | [facility] | | | | | | [address] | | | | | | [place] | | | | | | [facility] | | | | | | 7th Floor [place], | | | | | | [place] [address] | | | | | | [phone] | | | +--------+ + + + [...] Joyce MD - 02/04/2009 9:43 AM PDT [id number] JOE ANUSHA [id number] Clinic Date: 02/03/2009 Clinic: [facility] History: Anusha is now [...] aorta is mildly dilated. She has a [id number] degree of aortic valve regurgitation and no [...] as we can through our offices in [place]. Jhonny Joyce M.D. Professor of Pediatrics Division of Pediatric Cardiology [facility] VM / HS [id number] / [id number] / [id number] / cc: Sabrina Olvera M.D. [facility] [address] [place] [address] documented in this encounter Plan of Treatment Not on filedocumented as of this encounter Visit Diagnoses Not on filedocumented in this encounter"
--- OUTSIDE RECORDS SUMMARY | ~2020-02-03 | XMS | Encounter Summary ---
Demographics + + + | Address | [address] | | | [place] [address] | + + + | Home Phone | | + + + | Preferred Language | Unknown | + + + | Marital Status | Single | + + + | Rastafarian Affiliation | Unknown | + + + | Race | Unknown | + + + | Ethnic Group | Unknown | + + + Author + + + | Author | [facility] | | | and Mario Albertoana | + + + | Organization | [facility] | | | and [place] | [...] [place] | | | | | [address] | | + + + + + Care Team Providers + +------+ + | Care Door Frame Assembler Machine Name | Role | Phone | + +------+ + | Robert Zelaya PA-C | PCP | | + +------+ + Reason for Visit +--------+--------+ + | Reason | Onset | Comments | | | Date | | +--------+--------+ + | Other | 11/24/ | patient is establishing cardiology at [facility] | | | 2012 | | +--------+--------+ + Encounter Details +--------+ + + + + | Date | Type | Department | Care Team | Description | +--------+ + + + + | 11/24/ | Telephone | [facility] | Alin Romano | Other (patient is | | 2012 | | CARDIOLOGY [address] | MD Rodrigo [address] | establishing | | | | [address], | [address] [place] | cardiology at [facility]) | | | | [place] [address] | [place] [address] | | | | | [phone] | [phone] | | | | | | | | +--------+ + + + + Social History + + + +--------+------+ [...] on file | | + + + documented as of this encounter Miscellaneous Notes Telephone Encounter - Mahnaz Rodriguez - 11/24/2012 4:00 PM PDTCalled for the patient for the fifth time, as I wasn't able to reach her and finally I called grandfather at who just told me that Anusha is establishing cardiology care at [facility]. For this reason she w ill no longer schedule with us. ThanksElectronically signed by Mahnaz Rodriguez at 3 4:01 PM PDTdocumented in this encounter Plan of Treatment Not on filedocumented as of this encounter Visit Diagnoses Not on filedocumented in this encounter"
--- OUTSIDE RECORDS SUMMARY | ~2020-02-03 | XMS | Encounter Summary ---
Demographics + + + | Address | [address] | | | [place] [address] | + + + | Home Phone | | + + + | Preferred Language | Unknown | + + + | Marital Status | Single | + + + | Denominational Affiliation | Unknown | + + + | Race | White | + + + | Ethnic Group | Not or | + + + Author + + + | Author | [facility] | + + + | Organization | [facility] | + + + | Address | Unknown | + + + | Phone | Unavailable | + + + Support + + + + + | Name | Relationship | Address | Phone | + + + + + | Rhona Douglas | ECON | [address] | | | | | [place] | | | | | [address] | | + + + + + | David Douglas | MARTA | [address] | | | | | [place] | | | | | [address] | | + + + + + Care Team Providers + +------+ + | Care Associate School Psychologist Name | Role | Phone | + [...] Tra | | | | | at [facility] | [facility] | | | | | [address] | [place] [address] | | | | | [facility] | | | | | | [place], 2nd floor | | | | | | [place], [place] | | | | | | [address] | | | | | | [phone] | | | +--------+ + + + [...]
--- OUTSIDE RECORDS SUMMARY | ~2020-02-03 | XMS | Encounter Summary ---
Demographics + + + | Address | [address] | | | [place] [address] | + + + | Home Phone | | + + + | Preferred Language | Unknown | + + + | Marital Status | Single | + + + | Jewish Affiliation | Unknown | + + + | Race | White | + + + | Ethnic Group | Not or | + + + Author + + + | Author | [facility] | + + + | Organization | [facility] | + + + | Address | Unknown | + + + | Phone | Unavailable | + + + Support + + + + + | Name | Relationship | Address | Phone | + + + + + | Rhona Douglas | ECON | [address] | | | | | [place] | | | | | [address] | | + + + + + | David Douglas | MARTA | [place] | | | | | [place] | | | | | [address] | | + + + + + Care Team Providers + +------+ + | Care Cna Pct Name | Role | Phone | + +------+ + | Sabrina Olvera | PCP | | + +------+ + Reason for Visit Office Visit - E/M Services (Routine) +--------+--------+ + + + + | Status | Reason | Specialty | Diagnoses / | Referred By | Referred To | | | | | Procedures | Contact | Contact | +--------+--------+ + + + + | Closed | | Pediatric | Diagnoses | Wade, | Isiah, | | | | Cardiology | Undiagnosed | RYAN Bennett | Jhonny Madrigal MD | | | | | cardiac | [place] | [address] [facility] | | | | | murmurs | [place] | [facility] | | | | | | [facility] | [address] [place], | | | | | | [address] | [place] | | | | | | [place], | [address] | | | | | | [place] [address] | | | | | | | Phone: | | | | | | | [phone] | | | | | | | Fax: | | | | | | | [phone] | | +--------+--------+ + + + + Encounter Details +--------+ + + + + | Date | Type | Department | Care Team | Description | +--------+ + + + + | 02/17/ | Office | Pediatric | Jhonny Joyce, | | | 2006 | Visit-ECX | Cardiology at | | | | | | [place] [address] | | | | | | [address] | | | | | | Pediatric | | | | | | SpecialiSts | | | | | | [place], [place] | | | | | | [address] | | | | | | [phone] | | | +--------+ + + + [...] + + documented as of this encounter Last Filed Vital Signs + + + + + | Vital Sign | Reading | Time Taken | Comments | + + + + + | Blood Pressure | 117/57 | 02/23/2007 3:35 PM | | | | | PDT | | + + + + + | Pulse | 54 | 02/23/2007 3:35 PM | | | | | PDT | | + + + + + | Temperature | - | - | | + + + + + | Respiratory Rate | - | - | | + + + + + | Oxygen Saturation | 100% | 02/23/2007 3:35 PM | | | | | PDT | | + + + + + | Inhaled Oxygen | - | - | | | Concentration | | | | + + + + + | Weight | 66 kg (145 lb 8 oz) | 02/23/2007 3:35 PM | | | | | PDT | | + + + + + | Height | 170.2 cm (5' 7") | 02/23/2007 3:35 PM | | | | | PDT | | + + + + + | Body Mass Index | 22.79 | 02/23/2007 3:35 PM | | | | | PDT | | + + + + + documented in this encounter Plan of Treatment Not on filedocumented as of this encounter Visit Diagnoses Not on filedocumented in this encounter
--- OUTSIDE RECORDS SUMMARY | ~2020-02-03 | XMS | Encounter Summary ---
Demographics + + + | Address | [address] | | | [place] [address] | + + + | Home Phone | | + + + | Preferred Language | Unknown | + + + | Marital Status | Single | + + + | Islam Affiliation | Unknown | + + + | Race | White | + + + | Ethnic Group | Not or | + + + Author + + + | Author | [facility] | + + + | Organization | [facility] | + + + | Address | Unknown | + + + | Phone | Unavailable | + + + Support + + + + + | Name | Relationship | Address | Phone | + + + + + | Rhona Douglas | ECON | [address] | | | | | [place] | | | | | [address] | | + + + + + | David Douglas | MARTA | [place] | | | | | [place] | | | | | [address] | | + + + + + Care Team Providers + +------+ + | Care Charge Attendant Name | Role | Phone | + +------+ + | Robert Zelaya | PCP | | + +------+ + Encounter Details +--------+ + + + + | Date | Type | Department | Care Team | Description | +--------+ + + + + | 01/13/ | Hospital | Cardiac | Sjh, Car Ecg Tech | | | 2013 | Encounter | Non-Invasive Testing | [address] | | | | | at [facility] | [facility] | | | | | [address] | [place] [address] | | | | | [address] | | | | | | [place], 2nd floor | | | | | | [place], [place] | | | | | | [address] | | | | | | [phone] | | | +--------+ + + + [...] | + +--------+ + + + | CARDIAC EVENT | | 01/13/2013 | | Results for this | | MONITOR | | 12:00 AM | | procedure are in the | | | | PDT | | results section. | + +--------+ + + + documented in this encounter Results CARDIAC EVENT MONITOR (01/13/2013 12:00 AM PDT) + + + | Narrative | Performed At | + + + | | | | | | + + + + + | Procedure Note | + + | Mahnaz Toledo - 02/22/2013 9:52 AM PDT | + + documented in this encounter Visit Diagnoses Not on filedocumented in this encounter"
--- OUTSIDE RECORDS SUMMARY | ~2020-02-03 | XMS | Encounter Summary ---
Demographics + + + | Address | [address] | | | [place] [address] | + + + | Home Phone [...] Author + + + | Author | [facility] | + + + | Organization | [facility] | + + + | Address | Unknown | + + + | Phone | Unavailable | + + + Support + + + + + | Name | Relationship | Address | Phone | + + + + + | Rhona Douglas | ECON | [address] | | | | | [place] | | | | | [address] | | + + + + + | David Douglas | MARTA | [place] | | | | | [place] | | | | | [address] | | + + + + + Care Team Providers + +------+ + | Care Wood Calker Name | Role | Phone | + [...] Closed | | Pediatric | Diagnoses | Non-[facility] | Isiah, | | | | Cardiology | (aortic | Epic Dept | Jhonny Madrigal MD | | | | | stenosis) | | [address] | | | | | AI (aortic | | [address] | | | | | insufficienc | | [address] [place], | | | | | y) | | [place] | | | | | | | [address] | +--------+--------+ + + + + Encounter Details +--------+---------+ + + + | Date | Type | Department | Care Team | Description | +--------+---------+ + + + | 02/06/ | Office | Pediatric | Jhonny Joyce, | | | 2008 | Visit | Cardiology at | | | | | | [place] [address] | | | | | | [address] | | | | | | Pediatric | | | | | | SpecialiSts | | | | | | [place], [place] | | | | | | [address] | | | | | | [phone] | | | +--------+---------+ + + + Social History + +-------+ [...] + + + | Blood Pressure | 108/54 | 02/03/2009 10:25 AM | | | | | PDT | | + + + + + | Pulse | 58 | 02/03/2009 10:25 AM | | | | | PDT | | + + + + + | Temperature | - | - | | + + + + + | Respiratory Rate | 16 | 02/03/2009 10:25 AM | | | | | PDT | | + + + + + | Oxygen Saturation | 100% | 02/03/2009 10:25 AM | | | | | PDT | | + + + + + | Inhaled Oxygen | - | - | | | Concentration | | | | + + + + + | Weight | 62.8 kg (138 lb 8 | 02/03/2009 10:25 AM | | | | oz) | PDT | | + + + + + | Height | 171.5 cm (5' 7.5") | 02/03/2009 10:25 AM | | | | | PDT | | + + + + + | Body Mass Index | 21.37 | 02/03/2009 10:25 AM | | | | | PDT | | + + + + + documented in this encounter Plan of Treatment Not on filedocumented as of this encounter Visit Diagnoses Not on filedocumented in this encounter
--- OUTSIDE RECORDS SUMMARY | ~2020-02-03 | XMS | Encounter Summary ---
Demographics + + + | Address | [address] | | | [place] [address] | + + + | Home Phone | | + + + | Preferred Language | Unknown | + + + | Marital Status | Single | + + + | Spiritism Affiliation | Unknown | + + + | Race | White | + + + | Ethnic Group | Not or | + + + Author + + + | Author | [facility] | + + + | Organization | [facility] | + + + | Address | Unknown | + + + | Phone | Unavailable | + + + Support + + + + + | Name | Relationship | Address | Phone | + + + + + | Rhona Douglas | ECON | [address] | | | | | [place] | | | | | [address] | | + + + + + | David Douglas | MARTA | [address] | | | | | [place] | | | | | [address] | | + + + + + Care Team Providers + +------+ + | Care Operations Manager Name | Role | Phone | [...] | | | | | | [facility] | | | | | | [address] | | | | | | [place] | | | | | | [facility] | | | | | | 7th Floor [place], | | | | | | [place] [address] | | | | | | [phone] | | | +--------+--------+ + + + [...]
--- OUTSIDE RECORDS SUMMARY | ~2020-02-03 | XMS | Encounter Summary ---
Demographics + + + | Address | [address] | | | [place] [address] | + + + | Home Phone [...] [place] | | | | | [address] | | + + + + + | David Douglas | MART[place] | [place] | | | | | [place] | | | | | [address] | | + + + + + Care Team Providers + +------+ + | Care Navy Fighter Pilot Name | Role | Phone | + [...] Congenital | Wilfred Wilder MD | [facility] [address] | | | | | insufficienc | [address] | [address] | | | | | y of aortic | Ave | [address] | | | | | valve | [place], [place] | [place] | | | | | Congenital | [address] | Building, 2nd | | | | | stenosis of | Phone: | floor | | | | | aortic valve | [phone] | [place], [place] | | | | | Procedures | Fax: | [address] | | | | | | [phone] | Phone: | | | | | TRANSTHORACI | | [phone] | | | | | C | | | | | | | ECHOCARDIOGR | | | | | | | AM, ADULT | | | +--------+--------+ + + + + Encounter Details +--------+ + + + + | Date | Type | Department | Care Team | Description | +--------+ + + + + | 12/26/ | Project Analyst | Cardiology [facility] at | Broberg, Wilfred S, | Congenital | | 2014 | | [facility] [address] | MD [address] | insufficiency of | | | | [facility] | [place], [place] | aortic valve | | | | [facility], | [address] | (Primary Dx); | | | | | [phone] | Congenital stenosis | | | | Floor [facility] [place] | | of aortic valve | | | | [address] | | | | | | [phone] | | | +--------+ + + + [...] | + +--------+ + + + | 12 LEAD ECG | Routin | 03/01/2015 | Congenital | Results for this | | | e | 10:14 AM | insufficiency of | procedure are in the | | | | PDT | aortic valve | results section. | | | | | Congenital stenosis | | | | | | of aortic valve | | + +--------+ + + + | TRANSTHORACIC | Routin | 02/28/2015 | Congenital | Results for this | | ECHOCARDIOGRAM, | e | 12:00 AM | insufficiency of | procedure are in the | | ADULT | | PDT | aortic valve | results section. | | | | | Congenital stenosis | | | | | | of aortic valve | | + +--------+ + + + documented in this encounter Results 12 LEAD ECG (03/01/2015 10:14 AM PDT) + + + + + + | Component | Value | Ref Range | Performed | Pathologist | | | | | At | Signature | + + + + + + | VENTRICULAR | 63 | bpm | [facility] | | | RATE | | | OF | | | | | | CARDIOLOGY | | + + + + + + | ATRIAL RATE | 61 | bpm | [facility] | | | | | | OF | | | | | | CARDIOLOGY | | + + + + + + | P-R | 164 | ms | [facility] | | | INTERVAL | | | OF | | | | | | CARDIOLOGY | | + + + + + + | P AXIS | -10 | deg | [facility] | | | | | | OF | | | | | | CARDIOLOGY | | + + + + + + | QRS | 96 | ms | [facility] | | | DURATION | | | OF | | | | | | CARDIOLOGY | | + + + + + + | QT | 408 | ms | [facility] | | | | | | OF | | | | | | CARDIOLOGY | | + + + + + + | QTC-ANGUS | 418 | ms | [facility] | | | | | | OF | | | | | | CARDIOLOGY | | + + + + + + | R AXIS | -9 | deg | [facility] | | | | | | OF | | | | | | CARDIOLOGY | | + + + + + + | T AXIS | 34 | deg | [facility] | | | | | | OF | | | | | | CARDIOLOGY | | + + + + + + | ECG | SINUS RHYTHM- BORDERLINE | | [facility] | | | IMPRESSION | ECG -Electronically | | OF | | | | signed by: WILI SHELTON | | CARDIOLOGY | | | | 03-01-2015 14:05:07 | | | | + + + + + + + + | Specimen | + + | | + + + + + | Narrative | Performed At | + + + | | | + + + + + + + + | Performing | Address | City/State/Zipcode | Phone Number | | Organization | | | | + + + + + | [facility] | [address] | [place], [place] | | | CARDIOLOGY | [address] | [address] | | + + + + + TRANSTHORACIC ECHOCARDIOGRAM, ADULT (02/28/2015 12:00 AM PDT) + + + | Narrative | Performed At | + + + | | | + + + documented in this encounter Visit Diagnoses + + | Diagnosis | + + | Congenital insufficiency of aortic valve - Primary | + + | Congenital stenosis of aortic valve | + + documented in this encounter"
--- OUTSIDE RECORDS SUMMARY | ~2020-02-03 | XMS | Encounter Summary ---
Demographics + + + | Address | [address] | | | [place] [address] | + + + | Home Phone [...] Author + + + | Author | [facility] | + + + | Organization | [facility] | + + + | Address | Unknown | + + + | Phone | Unavailable | + + + Support + + + + + | Name | Relationship | Address | Phone | + + + + + | Rhona Douglas | ECON | [address] | | | | | [place] | | | | | [address] | | + + + + + | David Douglas | [place]ART[place] | [place] | | | | | [place] | | | | | [address] | | + + + + + Care Team Providers + +------+ + | Care Kiln Firer Helper Name | Role | Phone | + +------+ + | Sabrina Olvera | PCP | | + +------+ + Encounter Details +--------+ + + + + | Date | Type | Department | Care Team | Description | +--------+ + + + + | 02/20/ | Sugar Plantation Manager | Pediatric | Jhonny Joyce, | Congenital | | 2007 | | Cardiology at | MD | Insufficiency of | | | | [place] [address] | | Aortic Valve; | | | | [address] | | Congenital Stenosis | | | | Pediatric | | of Aortic Valve | | | | SpecialiSts | | | | | | [place], [place] | | | | | | [address] | | | | | | [phone] | | | +--------+ + + + [...] | ECG | Routin | Congenital | 01/22/2008 11:00 AM | | ECHOCARDIOGRAM, PEDS | | e | Stenosis of Aortic | PDT | | | | | Valve | | + +------+--------+ + + documented as of this encounter Visit Diagnoses + + | Diagnosis | + + | Congenital insufficiency of aortic valve | + + | Congenital stenosis of aortic valve | + + documented in this encounter"
--- OUTSIDE RECORDS SUMMARY | ~2020-02-03 | XMS | Encounter Summary ---
Demographics + + + | Address | [address] | | | [place] [address] | + + + | Home Phone | | + + + | Preferred Language | Unknown | + + + | Marital Status | Single | + + + | Presybeterian Affiliation | Unknown | + + + | Race | White | + + + | Ethnic Group | Not or | + + + Author + + + | Author | [facility] | + + + | Organization | [facility] | + + + | Address | Unknown | + + + | Phone | Unavailable | + + + Support + + + + + | Name | Relationship | Address | Phone | + + + + + | Rhnoa Douglas | ECON | [address] | | | | | [place] | | | | | [address] | | + + + + + | David Douglas | [place] | [place] | | | | | [place] | | | | | [address] | | + + + + + Care Team Providers + +------+ + | Care Animal Attendants And Trainers Name | Role | Phone | + +------+ + | Sabrina Olvera | PCP | | + +------+ + Encounter Details +--------+---------+ + + + | Date | Type | Department | Care Team | Description | +--------+---------+ + + + | 01/21/ | Office | Pediatric | Isiah Jhonny Madrigal, | | | 2007 | Visit | Cardiology at | MD | | | | | [place] | | | | | | [facility] | | | | | | [address] [facility] | | | | | | [place] | | | | | | [facility] | | | | | | 7th Floor [place], | | | | | | [place] [address] | | | | | | [phone] | | | +--------+---------+ + + + [...] of this encounter Progress Notes Jhonny Joyce - 01/22/2008 9:19 PM PDT [id number] JOE BRAGG [id number] Clinic Date: 01/22/2008 Clinic: [facility] Anusha is now 17. She is a young girl we have been following with aortic valve abnormality, a bicuspid valve with mild regurgitation, and little stenosis. She has been asymptomatic since we saw her last a year ago. She has been prescribed lisinopril 5 mg twice daily; however, she takes this inconsistently taking may be 6 times a week. Physical Examination: She is in no distress without cyanosis. She weighs 149-3/4 pounds. She is 67 inches tall. Respiratory rate is 18 per minute, blood pressure is 118/58, heart rate is 51 per minute, and her arterial saturation by pulse oximeter at room air is 99%. Palpation of the precordium reveals no overactivity nor thrill. Abdominal examination is without hepatosplenomegaly, masses, or tenderness. She has good pulses in both upper and lower extremities. These are not wide pulses. No edema is noted. No neck vein distention is noted. Lungs are clear to auscultation. Cardiac auscultation reveals a systolic ejection murmur followed by a grade 1 to 2 immediate diastolic murmur at the third left interspace. Data: Her echocardiogram showed no significant changes from her previous one. She has moderate degree of aortic valve regurgitation, bicuspid valve, and borderline enlargement of her aortic root. Assessment: Anusha is doing well. I did talk with her further with regard to the efficacy of medication and the hope that we can forestall needing any cardiac surgery. At this time, there is no reason to restrict her activity in anyway. We will plan to see her in 1 year for followup. Jhonny Joyce M.D. Professor of Pediatrics Division of Pediatric Cardiology [facility], [facility] / [id number] / [id number] / [phone] / [phone] cc: * [facility] [address] [place] [address] documented in this en counter Plan of Treatment Not on filedocumented as of this encounter Visit Diagnoses Not on filedocumented in this encounter"
--- OUTSIDE RECORDS SUMMARY | ~2020-02-03 | XMS | Encounter Summary ---
Demographics + + + | Address | [address] | | | [place] [address] | + + + | Home Phone | | + + + | Preferred Language | Unknown | + + + | Marital Status | Single | + + + | Sikhism Affiliation | Unknown | + + + | Race | Unknown | + + + | Ethnic Group | Unknown | + + + Author + + + | Author | [facility] [place] | | | and Mario Albertoana | + + + | Organization | [facility] | | | and [place] [...] [place] | | | | | [address] | | + + + + + Care Team Providers + +------+ + | Care Branch Customer Service Representative Name | Role | Phone | + +------+ + | Robert Zelaya PA-C | PCP | | + +------+ + Reason for Referral Diagnostic/Screening (Routine) +--------+--------+ + + + + | Status | Reason | Specialty | Diagnoses / | Referred By | Referred To | | | | | Procedures | Contact | Contact | +--------+--------+ + + + + | Closed | | Radiology | Diagnoses | Rosalina | Danita Ferrara | | | | | (aortic | Alin | Imaging [address] | | | | | stenosis) | Rodrigo, MD | [address] | | | | | Bicuspid | [address] | [address] [place] | | | | | aortic valve | St [place] | [place], [place] | | | | | Procedures | [place], [place] | [address] | | | | | ECHO | [id number] | Phone: | | | | | Complete | Phone: | | | | | | 10/05/12 echo | [phone] | Fax: | | | | | | Fax: | | | | | | | [phone] | | +--------+--------+ + + + + Reason for Visit + + + | Reason | Comments | + + + | Heart Murmur | Initial Consultation | + + + Encounter Details +--------+---------+ + + + | Date | Type | Department | Care Team | Description | +--------+---------+ + + + | 09/28/ | Office | [facility] | Alin Romano | Murmur (Primary Dx); | | 2012 | Visit | CARDIOLOGY [address] | MD Rodrigo [address] | (aortic | | | | [address] [place], | [address] [place] | stenosis); Bicuspid | | | | [place] [address] | [place] [address] | aortic valve; | | | | [phone] | [phone] | Tobacco use disorder | | | | | | | +--------+---------+ + + + Social History + + [...] + + + documented in this encounter Progress Notes Alin Romnao MD - 09/28/2012 2:31 PM PDTFormatting of this note might be differe nt from the original. Subjective: Patient ID: Anusha [place] is a [address] Robert Zelaya HPI Patient is a 22-year-old female with history of congenital bicuspid aortic valve previously followed at [facility], with last echocardiogram in December 2010 demonstrating mild stenosis and mod erate insufficiency at that time, with recent complaints of dizziness, nausea/vomiting, tinn itus, headache, difficulty concentrating. She denies any focal neurologic symptoms. Otherwise she has a fairly diffusely positive review of systems patient complaining of "hea rt racing", atypical chest pain, usually at rest, dyspnea on exertion, feeling generally ill , though she denies recent fevers/chills/night sweats. She continues to work in a local [employer] but has cut back her hours due to her symptoms. She has unfortunately resumed smoking due to ongoing stress, smoking perhaps one third pack per day. Patient Active Problem List Diagnoses Date Noted POA Bicuspid aortic valve 09/01/2012 Pre-syncope 09/01/2012 No past surgical history on file. No family history on file. History Social History Marital Status: Single Spouse Name: N/A Number of Children: 0 Years of Education: N/A Occupational History [employer] Social History Main Topics Smoking status: Current Everyday Smoker -- 0.5 packs/day for 3 years Types: Cigarettes Smokeless tobacco: Never Used Alcohol Use: No Drug Use: No Sexually Active: None Other Topics Concern None Social History Narrative Exercise: noneCaffeine: 2-3 sodas weeklyLiving Situation: with boyfriend No current outpatient prescriptions on file prior to visit. No Known Allergies Review of Systems Constitutional: Negative for fever, chills, diaphoresis, activity change, appetite change, fatigue and unexpected weight change. HENT: Negative for hearing loss, ear pain, nosebleeds, congestion, dental problem and tinni tus. Eyes: Positive for visual disturbance (blurring). Respiratory: Positive for chest tightness and shortness of breath. Negative for apnea, coug h, choking, wheezing and stridor. Cardiovascular: Positive for chest pain. Negative for palpitations and leg swelling. Gastrointestinal: Positive for nausea and vomiting. Negative for abdominal pain, diarrhea, constipation, blood in stool, abdominal distention, anal bleeding and rectal pain. Genitourinary: Positive for frequency. Negative for urgency, hematuria, flank pain, enuresi s, difficulty urinating and dyspareunia. Musculoskeletal: Negative for myalgias, back pain, joint swelling, arthralgias and gait pro blem. Skin: Negative for color change, rash and wound. Neurological: Positive for dizziness, speech difficulty (recent onset of 'stutter'), light- headedness and numbness (hands and feet). Negative for tremors, seizures, syncope, weakness and headaches. Hematological: Negative for adenopathy. Does not bruise/bleed easily. Psychiatric/Behavioral: Positive for disturbed wake/sleep cycle and decreased concentration . Negative for confusion. The patient is nervous/anxious. BP 112/70 | Pulse 66 | Resp 14 | Ht 1.702 m (5' 7") | Wt 86.183 kg (190 lb) | BMI 29.76 kg/ m2 Objective: Physical Exam Vitals reviewed. Constitutional: She is oriented to person, place, and time. She appears well-developed and well-nourished. HENT: Head: Normocephalic and atraumatic. Eyes: Pupils are equal, round, and reactive to light. Neck: Neck supple. No JVD present. No thyromegaly present. Cardiovascular: Normal rate, regular rhythm, S1 normal, S2 normal, intact distal pulses and normal pulses. PMI is not displaced. Exam reveals no S3, no S4 and no friction rub. Murmur heard. Decrescendo systolic murmur is present with a grade of 3/6 Decrescendo diastolic murmur is present with a grade of 1/6 Midsystolic decrescendo murmur best heard at the right upper sternal margin, followed by one to 2/6 high-pitched blowing decrescendo diastolic murmur midway into diastole and a d istinct A2 audible. Pulmonary/Chest: Effort normal and breath sounds normal. No accessory muscle usage. No resp iratory distress. She exhibits no tenderness. Abdominal: Soft. Normal appearance and bowel sounds are normal. She exhibits no distension and no abdominal bruit. There is no hepatosplenomegaly. There is no tenderness. Musculoskeletal: Normal range of motion. Lymphadenopathy: She has no cervical adenopathy. Neurological: She is alert and oriented to person, place, and time. Skin: Skin is warm and dry. No rash noted. Psychiatric: She has a normal mood and affect. Her behavior is normal. Echocardiogram December 2010 at [facility], with results reviewed by me notable for bicuspid aortic v alve, with mild and moderate AI, mildly dilated ascending aorta, with normal LV function, with a mean aortic gradient of 12 mm of mercury and gradient of 24 mmHg. Electrocardiogram September 2012 reviewed by me notable for sinus rhythm, heart rate 66, early repolarization. Assessment: 1. Bicuspid aortic valve - patient's physical exam does not suggest the presence of severe aortic stenosis. Her last echocardiographic study was carried out nearly 2 years ago. We freddie l schedule her for repeat study. At this point I do not suspect that any aortic valvular pat hology we be related to her multiple complaints. We reviewed pathophysiology of the bicuspid aortic valve, and associated ascending aortic e nlargement, using diagrams. We also reviewed the importance of optimizing blood pressure con trol and tobacco cessation as it pertains to half-way aortic valvular and vascular health. 2. Tobacco cessation - this was discussed at length with the patient, greater than 5 minute s, especially in light of her baseline aortic valvular disease. She states that she hopes to be able to cut back and quit in the near future. I did express my concern that the longer s he continues to smoke, the more difficult it will become to quit in the future. Plan: 1. Echocardiogram to assess aortic valve and ascending aorta. 2. Tobacco cessation. 3. followup visit in one year. documented in t his encounter Plan of Treatment + + +--------+ + + | Name | Type | Priori | Associated Diagnoses | Order Schedule | | | | ty | | | + + +--------+ + + | ECG 12 lead | ECG | Routin | Murmur | Ordered: 09/28/2012 | | | | e | | | + + +--------+ + + | ECHO Complete | Echocardiog | Routin | (aortic | Expected: | | | joaquina | e | stenosis) Bicuspid | 09/28/2012, Expires: | | | | | aortic valve | 09/28/2013 | + + +--------+ + + documented as of this encounter Visit Diagnoses + + | Diagnosis | + + | Murmur - Primary Undiagnosed cardiac murmurs | + + | (aortic stenosis) Aortic valve disorders | + + | Bicuspid aortic valve Congenital insufficiency of aortic valve | + + | Tobacco use disorder | + + documented in this encounter
--- OUTSIDE RECORDS SUMMARY | ~2020-02-03 | XMS | Encounter Summary ---
Demographics + + + | Address | [address] | | | [place] [address] | + + + | Home Phone [...] [place] | | | | | [address] | | + + + + + | David Douglas | ECON | [address] | | | | | [place] | | | | | [address] | | + + + + + Care Team Providers + +------+ + | Care Labeling Strategist Name | Role | Phone | + [...] [place] | | | | | | [facility] | | | | | | [address] [facility] | | | | | | [place] | | | | | | [facility] | | | | | | [address] [facility], | | | | | | [place] [address] | | | | | | [phone] | | | +--------+ + + + [...]
--- OUTSIDE RECORDS SUMMARY | ~2020-02-03 | XMS | Encounter Summary ---
Demographics + + + | Address | [address] | | | [place] [address] | + + + | Home Phone | | + + + | Preferred Language | Unknown | + + + | Marital Status | Single | + + + | Nondenominational Affiliation | Unknown | + + + | Race | White | + + + | Ethnic Group | Not or | + + + Author + + + | Author | [facility] | + + + | Organization | [facility] | + + + | Address | Unknown | + + + | Phone | Unavailable | + + + Support + + + + + | Name | Relationship | Address | Phone | + + + + + | Rhona Douglas | ECON | [address] | | | | | [place] | | | | | [address] | | + + + + + | David Douglas | [place] | [address] | | | | | [place] | | | | | [address] | | + + + + + Care Team Providers + +------+ + | Care Box Inspector Name | Role | Phone | + [...] Closed | | Pediatric | Diagnoses | Ped | Ped Echo | | | | Cardiology | Congenital | Cardiology | Lab [address] [address] | | | | | insufficienc | [address] | | | | | y of aortic | [address] | [place] | | | | | valve | [place] [facility] | | | | | Congenital | Children's | Hospital 8th | | | | | stenosis of | Hospital 7th | Floor | | | | | aortic valve | Floor | [place], [place] | | | | | Procedures | [place], [place] | [address] | | | | | | [address] | Phone: | | | | | TRANSTHORACI | Phone: | [phone] | | | | | C | [phone] | Fax: | | | | | ECHOCARDIOGR | Fax: | [phone] | | | | | AM, PEDS | [phone] | | +--------+--------+ + + + + Encounter Details +--------+ + + + + | Date | Type | Department | Care Team | Description | +--------+ + + + + | 01/03/ | Inspector [employer]spring Truing | Pediatric | Jhonny Joyce, | Congenital | | 2009 | | Cardiology at | MD | insufficiency of | | | | [place] | | aortic valve; | | | | [facility] | | Congenital stenosis | | | | [address] | | of aortic valve | | | | [place] | | | | | | [facility] | | | | | | 7th Floor [place], | | | | | | [place] [address] | | | | | | [phone] | | | +--------+ + + + [...] ECG | Routin | Congenital | Ordered: 01/03/2010 | | ECHOCARDIOGRAM, PEDS | | e | insufficiency of | | | | | | aortic valve | | | | | | Congenital stenosis | | | | | | of aortic valve | | + +------+--------+ + + documented as of this encounter Visit Diagnoses + + | Diagnosis | + + | Congenital insufficiency of aortic valve | + + | Congenital stenosis of aortic valve | + + documented in this encounter"
--- OUTSIDE RECORDS SUMMARY | ~2020-02-03 | XMS | Encounter Summary ---
Demographics + + + | Address | [address] | | | [place] [address] | + + + | Home Phone | | + + + | Preferred Language | Unknown | + + + | Marital Status | Single | + + + | Yarsanism Affiliation | Unknown | + + + | Race | Unknown | + + + | Ethnic Group | Unknown | + + + Author + + + | Author | [facility] | | | and Mario Albertoana | + + + | Organization | [facility] | | | and [place] [...] [place] | | | | | [address] | | + + + + + Care Team Providers + +------+ + | Care Fruit Worker Name | Role | Phone | + +------+ + | Robert Zelaya PA-C | PCP | | + +------+ + Encounter Details +--------+ + + + + | Date | Type | Department | Care Team | Description | +--------+ + + + + | 05/22/ | [facility] | [facility] | Mario Duffy | | | 2012 | Encounter | MED CTR EMERGENCY | MD [place] [address] | | | | | [place] [address] | [address] | | | | | [place] | [place] [address] | | | | | [address] | [phone] | | | | | [phone] | | | +--------+ + + + [...] + + documented as of this encounter ED Notes Mario Duffy MD - 05/22/2013 3:19 PM [place], [place] [address] Patient Name: YEMI DIAZ Provider: Unit #: [id number] Location: : 1990 DATE: 05/22/2013 PRIMARY PHYSICIAN: None locally. CHIEF COMPLAINT: Nausea and vomiting. HISTORY OF PRESENT ILLNESS: The patient is a 22-year-old female brought in by [employer] for e valuation of nausea and vomiting. She has been having chronic nausea for about a year and s he has had some intermittent vomiting since that time, but in the last 2 weeks has been vom iting quite frequently. She has been to the Clinic multiple times, also been to [facility] multiple times. She has had lots of testing done including 2 CT scans in the 10 days of her abdomen. She has also had CT scans of her head and her chest. She has had an ultrasound of her gallbladder it sounds like, although I am not completely clear about that. She has had lab tests, they gave her some Zofran, which is not working. She was back at the clinic yesterday, they were going through her records and found that she had a posit chavez urinalysis 2 months ago, so they put her on antibiotics yesterday and since that time s he is vomiting more. They did not recheck her urinalysis yesterday. She has not been pregnan t. She has had normal bowel movements and has never seen a GI specialist. She has no histor y of diabetes. PAST MEDICAL HISTORY: As above, otherwise none. CURRENT MEDICATIONS: 1. Doxycycline. 2. Bactrim, both of which were started yesterday. 3. Zofran, which she cannot keep down. ALLERGIES: NONE. SOCIAL HISTORY: Smokes occasionally. Does not drink alcohol. REVIEW OF SYSTEMS All negative. She does have a family history positive for gallbladder disease, no history of inflammatory bowel disease. All other review of systems negative except as noted above. PHYSICAL EXAMINATION VITAL SIGNS: Blood pressure 119/75, heart rate 78, respiratory rate not recorded. Temp 97. 8, pulse oximetry 99% on room air. GENERAL: She looks uncomfortable. HEENT: Pupils are equal. Oropharynx is dry. NECK: Supple. CARDIOVASCULAR: Reveals regular rate and rhythm, no murmur or rubs. LUNGS: Clear to auscultation bilaterally. ABDOMEN: Soft. She has some tenderness diffusely across the epigastrium with no particular point tenderness anywhere. She has no lower abdominal tenderness. Positive bowel sounds. N o guarding or rebound tenderness. EXTREMITIES: No edema. NEUROLOGIC: Alert and oriented. No focal deficits. EMERGENCY ROOM COURSE: The patient had an IV put in, we gave her some IV fluid and some Zo yashira IV. I did lab work on her, including H pylori and we did a gallbladder ultrasound. I g ot what records I could from [facility], unfortunately, I cannot get any from [facility] because it is closed today. It looks like to me based on what they sent me from [facility], that she has had 2 CT scans in the last 2 weeks, I think both of her abdomen, and a prior ultrasound that was negative as far as I can tell. Unfortunately I did not get the entire report so it is a little hard to tell, but it looks like she had a CT scan done on 05/17/[address] scan done on 05/13/2013 and she had a negative ultrasound test done on 05/10/2013. I do not have those specific reports they just refer to it in the most rece nt CT. She did fine throughout her stay and felt a little better by the time of discharge. We did do lab work on her, which reveals a CBC with a white count of 15, hematocrit 44, isaiah telet count is 271. Her maxi panel: Glucose slightly elevated at 125, otherwise everything i s normal and lipase is normal at 24. Her urine test looks negative, dipstick was negative c ompletely, no nitrites or leukocyte esterase and her H pylori test was negative. Gallbladde r ultrasound was also negative for any acute abnormalities. FINAL IMPRESSION: CHRONIC NAUSEA AND VOMITING AND I DO NOT SEE EVIDENCE FOR URINARY TRACT INFECTION AT THIS TIME AND I SUSPECT THE ANTIBIOTIC SHE WAS GIVEN IS ACTUALLY MAKING HER SY MPTOMS WORSE. PLAN: At this point I think she needs to be seen by a recruitment advertising manager to have some spec ialty evaluation for this problem, so the patient will be discharged home with family. I ga ve her some of the oral dissolving Zofran to use if needed for nausea and I gave her Dr. Dane cabrera and Dat's office number, asked her to call next week to make an appointment to be see n for further evaluation. DICTATED BY: Anam Duffy MD Emergency Medicine JOB #: [id number] EXT JOB #:[id number] cc: MD Dr. Sergey Adams <<Signature on File>> Kaitlin Duffy MD1 07/24/12 1301 < documented in this encounter Plan of Treatment Not on filedocumented as of this encounter Procedures + +--------+ + + + | Procedure Name | Priori | Date/Time | Associated Diagnosis | Comments | | | ty | | | | + +--------+ + + + | US ABDOMEN LIMITED | Routin | 05/22/2013 | | Results for this | | | e | 12:16 PM | | procedure are in the | | | | PST | | results section. | + +--------+ + + + | URINALYSIS, REFLEX | Routin | 05/22/2013 | | Results for this | | MICROSCOPIC AND/OR | e | 9:48 AM | | procedure are in the | | CULTURE | | PST | | results section. | + +--------+ + + + | H. PYLORI ANTIBODY | Routin | 05/22/2013 | | Results for this | | SCREEN | e | 8:18 AM | | procedure are in the | | | | PST | | results section. | + +--------+ + + + | CBC WITH | Routin | 05/22/2013 | | Results for this | | DIFFERENTIAL | e | 8:18 AM | | procedure are in the | | | | PST | | results section. | + +--------+ + + + | LIPASE | Routin | 05/22/2013 | | Results for this | | | e | 8:18 AM | | procedure are in the | | | | PST | | results section. | + +--------+ + + + | COMPREHENSIVE | Routin | 05/22/2013 | | Results for this | | METABOLIC PANEL | e | 8:18 AM | | procedure are in the | | | | PST | | results section. | + +--------+ + + + documented in this encounter Results US Abdomen Limited (05/22/2013 12:16 PM PST) + + | Specimen | + + | | + + + + + | Narrative | Performed At | + + + | [facility] | [facility] | | Department [address] [place] [address] | [facility] | | [ rep [address]] [ rep [facility] | | [facility]] Signed | - IMAGING | | | | | Patient Name: JOEYEMI Simpson Physician: | | | MILL. : 1990 Age: 22 Sex: F Unit #: [id number] | | | Exam Date: 05/22/13 Location: ER | | | Report #: [id number] Page: | | | %(RAD)RES..mtdd.print.filter("pg") of %(RAD) | | | RES..mtdd.print.filter("tpg") | | | | | | Accession Number: [id number] | | | RIGHT UPPER QUADRANT ULTRASOUND CLINICAL HISTORY: | | | ABDOMINAL PAIN. FINDINGS: The liver is of normal | | | echogenicity and echo architecture. There is no intrahepatic | | | biliary or venous dilation. Gallbladder appears normal with no wall | | | thickening, pericholecystic fluid or stone. Common bile duct is | | | normal at 4-5 mm. Pancreas is well imaged and is unremarkable. | | | Right kidney is included on this exam and it also appears normal. | | | There is no ascites. Blood flow in the upper abdomen is normal. | | | IMPRESSION: 1. NORMAL RIGHT UPPER QUADRANT | | | ULTRASOUND. Dictated Date/Time: 05/22/2013 12:16 | | | Transcribed Date/Time: 05/22/2013 12:22 Director Geophysical Laboratory: | | | <<Signature on File>> | | | | | | Aiden Oseguera MD05/22/13 1229 <Electronically signed by | | | Aiden Oseguera MD> Aiden Oseguera MD 05/22/13 | | | 1216 Director Geophysical Laboratory: Gudelia Mavwsgtvpiskz76/09/13 1222 | | | | | + + + + + + + + | Performing | Address | City/State/Zipcode | Phone Number | | Organization | | | | + + + + + | [facility] | [address] | [place] | [phone] | | [facility] | | [address] | | | - IMAGING | | | | + + + + + Urinalysis, Reflex Microscopic and/or Culture (05/22/2013 9:48 AM PST) + + + + + + | Component | Value | Ref Range | Performed | Pathologist | | | | | At | Signature | + + + + + + | COLLECTION | CL.CATCH | | [facility] | | | METHOD [facility] | | | [facility] | | | | | | MEDICAL | | | | | | CENTER - | | | | | | LABORATORY | | + + + + + + | Color, | LT YELLOW | | [facility] | | | Urine | | | [facility] | | | | | | MEDICAL | | | | | | CENTER - | | | | | | LABORATORY | | + + + + + + | Clarity, | CLEAR | | [facility] | | | Urine | | | [facility] | | | | | | MEDICAL | | | | | | CENTER - | | | | | | LABORATORY | | + + + + + + | Glucose, | NEGATIVE | NEGATIVE mg/dL | [facility] | | | Urine | | | [facility] | | | | | | MEDICAL | | | | | | CENTER - | | | | | | LABORATORY | | + + + + + + | Bilirubin, | NEGATIVE | NEGATIVE | [facility] | | | Urine | | | [facility] | | | | | | MEDICAL | | | | | | CENTER - | | | | | | LABORATORY | | + + + + + + | Ketones, | NEGATIVE | NEGATIVE | [facility] | | | Urine | | | [facility] | | | | | | MEDICAL | | | | | | CENTER - | | | | | | LABORATORY | | + + + + + + | Specific | 1.010 | 1.001 - 1.030 | [facility] | | | [place], | | | [facility] | | | Urine | | | MEDICAL | | | | | | CENTER - | | | | | | LABORATORY | | + + + + + + | Blood, | NEGATIVE | NEGATIVE | [facility] | | | Urine | | | [facility] | | | | | | MEDICAL | | | | | | CENTER - | | | | | | LABORATORY | | + + + + + + | pH, Urine | 7.5 | 5.0 - 8.0 | [facility] | | | | | | [facility] | | | | | | MEDICAL | | | | | | CENTER - | | | | | | LABORATORY | | + + + + + + | Protein, | NEGATIVE | NEGATIVE mg/dL | [facility] | | | Urine | | | [facility] | | | | | | MEDICAL | | | | | | CENTER - | | | | | | LABORATORY | | + + + + + + | Urobilinoge | NORMAL | NORMAL EU/dL | [facility] | | | n, Urine | | | [facility] | | | | | | MEDICAL | | | | | | CENTER - | | | | | | LABORATORY | | + + + + + + | Nitrite, | NEGATIVE | NEGATIVE | [facility] | | | Urine | | | [facility] | | | | | | MEDICAL | | | | | | CENTER - | | | | | | LABORATORY | | + + + + + + | Leukocyte | NEGATIVE | NEGATIVE | [facility] | | | Esterase, | | | [facility] | | | Urine | | | MEDICAL | | | | | | CENTER - | | | | | | LABORATORY | | + + + + + + | White Blood | NONE | 0 - 5 /hpf | [facility] | | | Cells, | | | [facility] | | | Urine | | | MEDICAL | | | | | | CENTER - | | | | | | LABORATORY | | + + + + + + | Red Blood | NONE | 0 - 3 /hpf | [facility] | | | Cells, | | | [facility] | | | Urine | | | MEDICAL | | | | | | CENTER - | | | | | | LABORATORY | | + + + + + + | Squamous | RARE | FEW /hpf | [facility] | | | Epithelial | | | [facility] | | | Cells, | | | MEDICAL | | | Urine | | | CENTER - | | | | | | LABORATORY | | + + + + + + | Bacteria, | NONE | NONE /hpf | [facility] | | | Urine | | | [facility] | | | | | | MEDICAL | | | | | | CENTER - | | | | | | LABORATORY | | + + + + + + | Culture | NO | | [facility] | | | Indicated | | | [facility] | | | | | | MEDICAL | | | | | | CENTER - | | | | | | LABORATORY | | + + + + + + + + | Specimen | + + | | + + + + + + + | Performing | Address | City/State/Zipcode | Phone Number | | Organization | | | | + + + + + | [facility] | [address] | [place] | [phone] | | [facility] | | [address] | | | - LABORATORY | | | | + + + + + | [facility] | [address] | [place] | | | [facility] | | [address], [facility] | | | - LABORATORY | | | | + + + + + CBC with Differential (05/22/2013 8:18 AM PST) + + + + + + | Component | Value | Ref Range | Performed | Pathologist | | | | | At | Signature | + + + + + + | MANUAL | NO | | [facility] | | | DIFFERENTIA | | | [facility] | | | L ? | | | MEDICAL | | | | | | CENTER - | | | | | | LABORATORY | | + + + + + + | White Blood | 14.8 (H) | 4.0 - 11.0 K/uL | [facility] | | | Cells | | | [facility] | | | | | | MEDICAL | | | | | | CENTER - | | | | | | LABORATORY | | + + + + + + | Red Blood | 5.35 (H) | 3.70 - 5.20 | [facility] | | | Cells | | M/uL | [facility] | | | | | | MEDICAL | | | | | | CENTER - | | | | | | LABORATORY | | + + + + + + | Hemoglobin | 15.3 | 11.5 - 16.0 | [facility] | | | | | gm/dL | [facility] | | | | | | MEDICAL | | | | | | CENTER - | | | | | | LABORATORY | | + + + + + + | Hematocrit | 44.6 | 34.0 - 47.0 % | [facility] | | | | | | [facility] | | | | | | MEDICAL | | | | | | CENTER - | | | | | | LABORATORY | | + + + + + + | MCV | 83.5 | 83.0 - 101.0 fL | [facility] | | | | | | [facility] | | | | | | MEDICAL | | | | | | CENTER - | | | | | | LABORATORY | | + + + + + + | MCH | 28.7 | 28.0 - 35.0 pg | [facility] | | | | | | [facility] | | | | | | MEDICAL | | | | | | CENTER - | | | | | | LABORATORY | | + + + + + + | MCHC | 34.4 | 32.0 - 36.0 | [facility] | | | | | g/dL | [facility] | | | | | | MEDICAL | | | | | | CENTER - | | | | | | LABORATORY | | + + + + + + | RDW-CV | 13.6 | <15.0 % | [facility] | | | | | | [facility] | | | | | | MEDICAL | | | | | | CENTER - | | | | | | LABORATORY | | + + + + + + | Platelet | 271 | 140 - 440 K/uL | [facility] | | | Count | | | [facility] | | | | | | MEDICAL | | | | | | CENTER - | | | | | | LABORATORY | | + + + + + + | % | 88.0 (H) | 45 - 75 % | [facility] | | | Neutrophils | | | [facility] | | | | | | MEDICAL | | | | | | CENTER - | | | | | | LABORATORY | | + + + + + + | % | 6.3 (L) | 20 - 45 % | [facility] | | | Lymphocytes | | | [facility] | | | | | | MEDICAL | | | | | | CENTER - | | | | | | LABORATORY | | + + + + + + | % Monocytes | 2.9 (L) | 4 - 12 % | [facility] | | | | | | [facility] | | | | | | MEDICAL | | | | | | CENTER - | | | | | | LABORATORY | | + + + + + + | % | 0.5 | 0 - 5 % | [facility] | | | Eosinophils | | | [facility] | | | | | | MEDICAL | | | | | | CENTER - | | | | | | LABORATORY | | + + + + + + | % Basophils | 2.3 (H) | 0 - 1 % | [facility] | | | | | | [facility] | | | | | | MEDICAL | | | | | | CENTER - | | | | | | LABORATORY | | + + + + + + | Absolute | 13.1 (H) | 1.5 - 6.6 K/uL | [facility] | | | Neutrophils | | | [facility] | | | | | | MEDICAL | | | | | | CENTER - | | | | | | LABORATORY | | + + + + + + | Absolute | 0.9 | 0.6 - 3.2 K/uL | [facility] | | | Lymphocytes | | | [facility] | | | | | | MEDICAL | | | | | | CENTER - | | | | | | LABORATORY | | + + + + + + | Absolute | 0.4 | 0.0 - 1.0 K/uL | [facility] | | | Monocytes | | | [facility] | | | | | | MEDICAL | | | | | | CENTER - | | | | | | LABORATORY | | + + + + + + | Absolute | 0.1 | 0.0 - 0.4 K/uL | [facility] | | | Eosinophils | | | [facility] | | | | | | MEDICAL | | | | | | CENTER - | | | | | | LABORATORY | | + + + + + + | Absolute | 0.3 (H) | 0.0 - 0.1 K/uL | [facility] | | | Basophils | | | [facility] | | | | | | MEDICAL | | | | | | CENTER - | | | | | | LABORATORY | | + + + + + + | SUSPECTED | 1 (H)Comment: Left Shift | | [facility] | | | PROBLEM IS: | | | [facility] | | | | | | MEDICAL | | | | | | CENTER - | | | | | | LABORATORY | | + + + + + + + + | Specimen | + + | | + + + + + + + | Performing | Address | City/State/Zipcode | Phone Number | | Organization | | | | + + + + + | [facility] | [address] | [place], [place] | [phone] | | [facility] | | [address] | | | - LABORATORY | | | | + + + + + | [facility] | [address] | [place], [place] | | | [facility] | | [address], [facility] | | | - LABORATORY | | | | + + + + + H. pylori Antibody Screen (05/22/2013 8:18 AM PST) + + + + + + | Component | Value | Ref Range | Performed | Pathologist | | | | | At | Signature | + + + + + + | Helicobacte | NEGATIVEComment: | NEGATIVE | [facility] | | | r pylori Ab | @INTERNAL CONTROL OK?: | | [facility] | | | | RED CONTROL LINE | | MEDICAL | | | | APPEARS? Y | | CENTER - | | | | | | LABORATORY | | + + + + + + + + | Specimen | + + | | + + + + + + + | Performing | Address | City/State/Zipcode | Phone Number | | Organization | | | | + + + + + | [facility] | [address] | [place] | [phone] | | [facility] | | [address] | | | - LABORATORY | | | | + + + + + | [facility] | [address] | [place] | | | [facility] | | [id number] | | | - LABORATORY | | | | + + + + + Comprehensive Metabolic Panel (05/22/2013 8:18 AM PST) + + + + + + | Component | Value | Ref Range | Performed | Pathologist | | | | | At | Signature | + + + + + + | Glucose | 125 (H) | 70 - 109 mg/dL | [facility] | | | | | | [facility] | | | | | | MEDICAL | | | | | | CENTER - | | | | | | LABORATORY | | + + + + + + | Calcium | 9.5 | 8.3 - 10.5 | [facility] | | | | | mg/dL | [facility] | | | | | | MEDICAL | | | | | | CENTER - | | | | | | LABORATORY | | + + + + + + | Alkaline | 84 | 40 - 110 IU/L | [facility] | | | Phosphatase | | | [facility] | | | | | | MEDICAL | | | | | | CENTER - | | | | | | LABORATORY | | + + + + + + | AST | 18 | 10 - 42 IU/L | [facility] | | | | | | [facility] | | | | | | MEDICAL | | | | | | CENTER - | | | | | | LABORATORY | | + + + + + + | ALT | 24 | 6 - 45 IU/L | [facility] | | | | | | [facility] | | | | | | MEDICAL | | | | | | CENTER - | | | | | | LABORATORY | | + + + + + + | Bilirubin | 0.4 | 0.2 - 1.0 mg/dL | [facility] | | | Total | | | [facility] | | | | | | MEDICAL | | | | | | CENTER - | | | | | | LABORATORY | | + + + + + + | Total | 7.2 | 6.0 - 7.8 gm/dL | [facility] | | | Protein | | | [facility] | | | | | | MEDICAL | | | | | | CENTER - | | | | | | LABORATORY | | + + + + + + | Albumin | 4.3 | 3.2 - 5.0 gm/dL | [facility] | | | | | | [facility] | | | | | | MEDICAL | | | | | | CENTER - | | | | | | LABORATORY | | + + + + + + | BUN | 11 | 7 - 18 mg/dL | [facility] | | | | | | [facility] | | | | | | MEDICAL | | | | | | CENTER - | | | | | | LABORATORY | | + + + + + + | Creatinine | 0.77 | 0.60 - 1.30 | [facility] | | | | | mg/dL | [facility] | | | | | | MEDICAL | | | | | | CENTER - | | | | | | LABORATORY | | + + + + + + | Estimated | >60Comment: For | >60 mL/min/A | [facility] | | | GFR | -Americans, | | [facility] | | | | please multiply the | | MEDICAL | | | | result by 1.210 | | CENTER - | | | | This is an estimated | | LABORATORY | | | | GFR and is based on a | | | | | | standard adult | | | | | | body mass (A=1.73m2) and | | | | | | serum creatinine | | | | + + + + + + | BUN/Creatin | 14.3 | 12 - 20 | [facility] | | | ine Ratio | | | [facility] | | | | | | MEDICAL | | | | | | CENTER - | | | | | | LABORATORY | | + + + + + + | Na | 140 | 136 - 149 mEq/L | [facility] | | | | | | [facility] | | | | | | MEDICAL | | | | | | CENTER - | | | | | | LABORATORY | | + + + + + + | K | 3.7 | 3.5 - 5.1 mEq/l | [facility] | | | | | | [facility] | | | | | | MEDICAL | | | | | | CENTER - | | | | | | LABORATORY | | + + + + + + | Cl | 106 | 98 - 109 mEq/l | [facility] | | | | | | [facility] | | | | | | MEDICAL | | | | | | CENTER - | | | | | | LABORATORY | | + + + + + + | CO2 | 24 | 24 - 31 mEq/L | [facility] | | | | | | [facility] | | | | | | MEDICAL | | | | | | CENTER - | | | | | | LABORATORY | | + + + + + + | Anion Gap | 13.7 | 6.0 - 17.0 | [facility] | | | | | | [facility] | | | | | | MEDICAL | | | | | | CENTER - | | | | | | LABORATORY | | + + + + + + + + | Specimen | + + | | + + + + + + + | Performing | Address | City/State/Zipcode | Phone Number | | Organization | | | | + + + + + | [facility] | [address] | [place] | [phone] | | [facility] | | [address] | | | - LABORATORY | | | | + + + + + | [facility] | [address] | [place], [place] | | | [facility] | | [id number] | | | - LABORATORY | | | | + + + + + Lipase (05/22/2013 8:18 AM PST) + +-------+ + + + | Component | Value | Ref Range | Performed | Pathologist | | | | | At | Signature | + +-------+ + + + | Lipase | 24 | 0 - 60 U/L | [facility] | | | | | | [facility] | | | | | | MEDICAL | | | | | | CENTER - | | | | | | LABORATORY | | + +-------+ + + + + + | Specimen | + + | | + + + + + + + | Performing | Address | City/State/Zipcode | Phone Number | | Organization | | | | + + + + + | [facility] | [address] | [place] | [phone] | | [facility] | | [address] | | | - LABORATORY | | | | + + + + + | [facility] | [address] | [place] | | | [facility] | | [id number] | | | - LABORATORY | | | | + + + + + documented in this encounter Visit Diagnoses Not on filedocumented in this encounter
--- OUTSIDE RECORDS SUMMARY | ~2020-02-03 | XMS | Encounter Summary ---
Demographics + + + | Address | [address] | | | [place] [address] | + + + | Home Phone | | + + + | Preferred Language | Unknown | + + + | Marital Status | Single | + + + | Congregation Affiliation | Unknown | + + + | Race | White | + + + | Ethnic Group | Not or | + + + Author + + + | Author | [facility] | + + + | Organization | [facility] | + + + | Address | Unknown | + + + | Phone | Unavailable | + + + Support + + + + + | Name | Relationship | Address | Phone | + + + + + | Rhona Douglas | ECON | [address] | | | | | [place] | | | | | [address] | | + + + + + | David Douglas | ECON | [address] | | | | | [place] | | | | | [address] | | + + + + + Care Team Providers + +------+ + | Care Price Accuracy Supervisor Name | Role | Phone | + +------+ + PCP | Unavailable | + +------+ + Encounter Details +--------+ + + + + | Date | Type | Department | Care Team | Description | +--------+ + + + + | 02/22/ | Abstract | Pediatric | Jhonny Joyce, | | | 2004 | | Cardiology at | | | | | | [facility] [address] | | | | | | [facility] | | | | | | Pediatric | | | | | | [facility] | | | | | | [place] | | | | | | [address] | | | | | | [phone] | | | +--------+ + + + [...]
--- OUTSIDE RECORDS SUMMARY | ~2020-02-03 | XMS | Encounter Summary ---
Demographics + + + | Address | [address] | | | [place] [address] | + + + | Home Phone | | + + + | Preferred Language | Unknown | + + + | Marital Status | Single | + + + | Hinduism Affiliation | Unknown | + + + | Race | White | + + + | Ethnic Group | Not or | + + + Author + + + | Author | [facility] | + + + | Organization | [facility] | + + + | Address | Unknown | + + + | Phone | Unavailable | + + + Support + + + + + | Name | Relationship | Address | Phone | + + + + + | Rhona Diaz | ECON | [address] | | | | | [place] | | | | | [address] | | + + + + + | David Diaz | MARTA | [place] | | | | | [place] | | | | | [phone] | | + + + + + Care Team Providers + +------+ + | Care Fuels Engineer Name | Role | Phone | + +------+ + | Sabrina Olvera | PCP | | + +------+ + Encounter Details +--------+ + + + + | Date | Type | Department | Care Team | Description | +--------+ + + + + | 02/13/ | Procedure - | UNKNOWN DEPARTMENT | Other, Faculty | ECHO (ANDREW or TTE) | | 2000 | | [address] [facility] | [phone] | | | | Transcribed | [address] | | | | | | [place], [place] | | | | | | [address] | | | +--------+ + + + [...] documented as of this encounter Progress Notes Other, Faculty - 02/13/2001 12:00 AM PDTAssociated Order(s): TRANSTHORACIC ECHOCARDIOGRAM, ADULT [facility] DATE: 02/13/01 [place], [place] MED REC NO: [id number] NAME: ANUSHA DIAZ ECHOCARDIOGRAPHY REPORT BIRTHDATE: [birth year] CARDIAC QUERY: AORTIC STENOSIS UNIT: STUDY NO: 01-1904 TAPE NO. [id number] REF. : ELTON--DCH7S BP: RA 107/61 FRAME NO. 1:15:27- TECH: CM M-MODE:MM 2-D MEASUREMENT LVID (D)47.5 (S)27.5 %FS 42 LA 30.0 IVS (D) 7.5 AO 25.0 LVPW (D) 7.0 AO BERNADETTE 21.0 AO SIN 25.0 DOPPLER:M/S PW CW MMHG PW CW MMHG RVIT 0.40 LVIT 1.25 LVOT 0.90 MPA 0.70 0.80 ASAO AP 2.40 ASAO SSN 2.10 ASAO RPS 2.90 PI 1.20 DSAO 1.60 2D & DOPPLER INTERPRETATION 1. SIGNIFICANT AORTIC INSUFFICIENCY WITH DIASTOLIC FLOW REVERSAL IN TRANSVERSE AORTIC ARCH. 2. VERY MILD AORTIC STENOSIS. 3. LEFT VENTRICULAR ENLARGEMENT WITH HYPERDYNAMIC SYSTOLIC FUNCTION. 4. 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 MB ADRI ESPINOSA M.D. documented in this encou nter Plan of Treatment Not on filedocumented as of this encounter Procedures + +--------+ + + + | Procedure Name | Priori | Date/Time | Associated Diagnosis | Comments | | | ty | | | | + +--------+ + + + | TRANSTHORACIC | | 02/13/2001 | | Results for this | | ECHOCARDIOGRAM, | | 12:00 AM | | procedure are in the | | ADULT | | PDT | | results section. | + +--------+ + + + documented in this encounter Results TRANSTHORACIC ECHOCARDIOGRAM, ADULT (02/13/2001 12:00 AM PDT) + + | Procedure Note | + + | Other, Faculty - 02/13/2001 12:00 AM PDT [facility] DATE: | | 02/13/01 [place], [place] MED REC NO: [id number] NAME: ANUSHA DIAZ ECHOCARDIOGRAPHY | | REPORT BIRTHDATE: [birth year] CARDIAC QUERY: AORTIC STENOSIS UNIT: STUDY NO: 01-1904 | | TAPE [place]. [id number] REF. : ELTON--DCH7S BP: RA 107/61 FRAME NO. 1:15:27- TECH: CM | | M-MODE:MM | | 2-D MEASUREMENT | | LVID (D)47.5 | | (S)27.5 %FS 42 LA 30.0 IVS (D) 7.5 AO 25.0 LVPW (D) 7.0 AO BERNADETTE 21.0 AO SIN 25.0 | | DOPPLER:M/S | | PW CW MMHG PW CW MMHG | | RVIT 0.40 | | LVIT 1.25 LVOT 0.90 MPA 0.70 0.80 ASAO AP 2.40 ASAO SSN 2.10 ASAO RPS 2.90 PI 1.20 | | DSAO 1.60 | | 2D & DOPPLER INTERPRETATION | | 1. | | SIGNIFICANT AORTIC INSUFFICIENCY WITH DIASTOLIC FLOW REVERSAL IN TRANSVERSE AORTIC ARCH. | | 2. VERY MILD AORTIC STENOSIS. 3. LEFT VENTRICULAR ENLARGEMENT WITH HYPERDYNAMIC | | SYSTOLIC FUNCTION. 4. 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 | | MB ADIR ESPINOSA M.D. | | AO BERNADETTE 21.0 AO SIN 25.0 | | | | DOPPLER:M/S PW CW MMHG PW CW MMHG | | | | RVIT 0.40 LVIT 1.25 | | LVOT 0.90 | | MPA 0.70 0.80 ASAO AP 2.40 | | ASAO SSN 2.10 | | ASAO RPS 2.90 | | PI 1.20 DSAO 1.60 | | | | 2D & DOPPLER INTERPRETATION | | | | 1. SIGNIFICANT AORTIC INSUFFICIENCY WITH DIASTOLIC FLOW REVERSAL | | IN TRANSVERSE AORTIC ARCH. | | | | 2. VERY MILD AORTIC STENOSIS. | | | | 3. LEFT VENTRICULAR ENLARGEMENT WITH HYPERDYNAMIC SYSTOLIC | | FUNCTION. | | | | 4. 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 | | | | | | MB | | | | ADRI ESPINOSA M.D. | | | | | | | + + documented in this encounter Visit Diagnoses Not on filedocumented in this encounter"
--- OUTSIDE RECORDS SUMMARY | ~2020-02-03 | XMS | Encounter Summary ---
Demographics + + + | Address | [address] | | | [place] [address] | + + + | Home Phone | | + + + | Preferred Language | Unknown | + + + | Marital Status | Single | + + + | Cheondoism Affiliation | Unknown | + + + | Race | White | + + + | Ethnic Group | Not or | + + + Author + + + | Author | [facility] | + + + | Organization | [facility] | + + + | Address | Unknown | + + + | Phone | Unavailable | + + + Support + + + + + | Name | Relationship | Address | Phone | + + + + + | Rhona Douglas | ECON | [address] | | | | | [place] | | | | | [phone] | | + + + + + | David Douglas | MARTA | [address] | | | | | [place] | | | | | [phone] | | + + + + + Care Team Providers + +------+ + | Care Accounting Tutor Name | Role | Phone | + [...] Congenital | Jhonny Madrigal MD | Lab [facility] [address] | | | | | stenosis of | [address] [facility] [address] | | | | | aortic valve | [address] | [place] | | | | | Congenital | [address] | Children's | | | | | | [place], [place] | [facility] 8th | | | | | insufficienc | [address] | Floor | | | | | y of aortic | | [place], [place] | | | | | valve | | [address] | | | | | Procedures | | Phone: | | | | | TRANSTHORACI | | [phone] | | | | | C | | Fax: | | | | | ECHOCARDIOGR | | [phone] | | | | | AM, PEDS | | | +--------+--------+ + + + + Encounter Details +--------+ + + + + | Date | Type | Department | Care Team | Description | +--------+ + + + + | 01/31/ | Certified Social Workers In Health Care | Pediatric | Jhonny Joyce, | Congenital Stenosis | | 2008 | | Cardiology at | MD | of Aortic Valve; | | | | [place] | | Congenital | | | | [facility] | | Insufficiency of | | | | [address] [facility] | | Aortic Valve | | | | C[place] | | | | | | [facility] | | | | | | 7th Floor [place], | | | | | | [place] [address] | | | | | | [phone] | | | +--------+ + + + [...]
--- OUTSIDE RECORDS SUMMARY | ~2020-02-03 | XMS | Encounter Summary ---
Demographics + + + | Address | [address] | | | [place] [address] | + + + | Home Phone [...] [address] | | | | | [place] | | | | | [phone] | | + + + + + | David Douglas | MARTA | [address] | | | | | [place] | | | | | [phone] | | + + + + + Care Team Providers + +------+ + | Care Research Geneticist Name | Role | Phone | + +------+ + | Sabrina Olvera | PCP | | + +------+ + Encounter Details +--------+ + + + + | Date | Type | Department | Care Team | Description | +--------+ + + + + | 08/03/ | Office | UNKNOWN DEPARTMENT | Note, Outpatient | Progress Note | | 2006 | Visit-Trans | [address] [facility] | [facility] | | | | raiza | [address] | | | | | | [place], [place] | | | | | | [address] | | | +--------+ + + + [...] as of this encounter Progress Notes Interface, Sr. Social Media & Mobile Manager In - 03/24/2007 2:25 AM TAMICA [id number] [facility] ANUSHA [id number] Clinic Date: 02/13/2007 Clinic: [facility] Briefly, Anusha was asymptomatic, [...] at the third left interspace. No Anatoliy Cornish murmur is heard. She has a short systolic murmur in the aortic area which is of grade 2 intensity. She did have an echocardiogram, and this showed no significant change from her previous echocardiogram. She is doing quite well and will be seen again in 1 year for followup. Jhonny Joyce M.D. Professor of Pediatrics Division of Pediatric Cardiology [facility] / [id number] / [id number] / [id number] / [id number] Electronically signed by Jhonny Joyce 03-23-2007 07:38:29 AM documented in this encounter Plan of Treatment Not on filedocumented as of this encounter Visit Diagnoses Not on filedocumented in this encounter"
--- OUTSIDE RECORDS SUMMARY | ~2020-02-03 | XMS | Encounter Summary ---
Demographics + + + | Address | [address] | | | [place] [address] | + + + | Home Phone [...] [place] | | | | | [address] | | + + + + + | David Douglas | [place] | [address] | | | | | [place] | | | | | [address] | | + + + + + Care Team Providers + +------+ + | Care Test Tube Maker Name | Role | Phone | + [...] | | | | | | [facility] | | | | | | [address] [facility] | | | | | | [place] | | | | | | [facility] | | | | | | 7th Floor [place], | | | | | | [place] [address] | | | | | | [phone] | | | +--------+---------+ + + + [...] Jhonny Joyce - 01/22/2008 9:19 PM PDT [id number] JOE BRAGG [id number] Clinic Date: 01/22/2008 Clinic: [facility] Anusha is now 17. [...] Professor of Pediatrics Division of Pediatric Cardiology [facility] / [id number] / [id number] / [id number] / [id number] cc: * Magdy Myles [facility] [address] [place] [address] documented in this en counter Plan of Treatment Not on filedocumented as of this encounter Visit Diagnoses Not on filedocumented in this encounter"
--- OUTSIDE RECORDS SUMMARY | ~2020-02-03 | XMS | Encounter Summary ---
Demographics + + + | Address | [address] | | | [place] [address] | + + + | Home Phone | | + + + | Preferred Language | Unknown | + + + | Marital Status | Single | + + + | Gnosticism Affiliation | Unknown | + + + | Race | White | + + + | Ethnic Group | Not or | + + + Author + + + | Author | [facility] | + + + | Organization | [facility] | + + + | Address | Unknown | + + + | Phone | Unavailable | + + + Support + + + + + | Name | Relationship | Address | Phone | + + + + + | Rhona Douglas | ECON | [address] | | | | | [place] | | | | | [address] | | + + + + + | David Douglas | MARTA | [address] | | | | | [place] | | | | | [address] | | + + + + + Care Team Providers + +------+ + | Care Senior Environmental Scientist Name | Role | Phone | + [...] Closed | | Cardiology | Diagnoses | | Car Echo | | | | | Bicuspid | Ariyachaipan | [facility] [address] | | | | | aortic valve | , Allison, | [address] | | | | | Procedures | MD [address] | [address] | | | | | | [address] | [place] | | | | | TRANSTHORACI | [address] | Building, 2nd | | | | | C | [place], [place] | floor | | | | | ECHOCARDIOGR | [address] | [place], [place] | | | | | AM, ADULT | | [address] | | | | | | | Phone: | | | | | | | [phone] | +--------+--------+ + + + + Reason for Visit + + + | Reason | Comments | + + + | Follow-up visit | | + + + Diagnostic Testing (Routine) +--------+--------+ + + + + | Status | Reason | Specialty | Diagnoses / | Referred By | Referred To | | | | | Procedures | Contact | Contact | +--------+--------+ + + + + | Closed | | Cardiology | Diagnoses | Lue, | Kuldip, | | | | | Congenital | Jhonny Madrigal MD | Wilfred Wilder MD | | | | | insufficienc | [address] | [address] | | | | | y of aortic | [address] | Ave | | | | | valve | [address] | [place], [place] | | | | | Bicuspid | [place], [place] | [address] | | | | | aortic valve | [address] | Phone: | | | | | Procedures | | [phone] | | | | | | | Fax: | | | | | TRANSTHORACI | | [phone] | | | | | C | | | | | | | ECHOCARDIOGR | | | | | | | AM, ADULT | | | +--------+--------+ + + + + Encounter Details +--------+---------+ + + + | Date | Type | Department | Care Team | Description | +--------+---------+ + + + | 01/13/ | Office | Cardiology [facility] at | Wilfred Christiansen, | Bicuspid aortic | | 2013 | Visit | [facility] [address] | MD [address] | valve (Primary Dx); | | | | [facility] | [facility] [place] | Light headedness | | | | Health and Healing, | [address] | | | | | | [phone] | | | | | Floor [place], [place] | | | | | | [address] | | | | | | [phone] | | | +--------+---------+ + + + [...] + + + | Blood Pressure | 124/84 | 01/13/2013 10:56 AM | | | | | PDT | | + + + + + | Pulse | 68 | 01/13/2013 10:56 AM | | | | | PDT | | + + + + + | Temperature | 36.7 C (98 F) | 01/13/2013 10:56 AM | | | | | PDT | | + + + + + | Respiratory Rate | - | - | | + + + + + | Oxygen Saturation | 100% | 01/13/2013 10:56 AM | | | | | PDT | | + + + + + | Inhaled Oxygen | - | - | | | Concentration | | | | + + + + + | Weight | 86.5 kg (190 lb 11.2 | 01/13/2013 10:56 AM | | | | oz) | PDT | | + + + + + | Height | 170.2 cm (5' 7") | 01/13/2013 10:56 AM | | | | | PDT | | + + + + + | Body Mass Index | 29.87 | 01/13/2013 10:56 AM | | | | | PDT | | + + + + + documented in this encounter Patient Instructions Patient Instructions Allison Boone MD - 01/13/2013 12:01 PM PDT- No medication thuan mcdowell. - wear event monitor - follow up in 2 year with echoElectronically signed by Allison Boone MD at 2012 12:12 PM PDT documented in this encounter Progress Notes Wilfred Christiansen MD - 01/18/2013 10:03 PM PDTAttending Note I have seen and examined Ms. Douglas and discussed the patient's management with the fellow. I reviewed the fellow s note above and agree with the documented findings and plan of care. Patient of Dr. Joyce with BAV. 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 Ligthheadedness episodes n ot easily explained by her valve issue, which seems stable. Should consider arrhythmia as a potential cause. Episodes do not sound severe. If event monitor is unrevealing, patient can continue to see us in 2 years. eece Boone ch, MD - 01/13/2013 11:19 AM PDT . GENERAL CARDIOLOGY CLINIC NOTE Fellow: Shama Ford MD 1. Bicuspid aortic valve - Mild and mild AI - Cannot tolerate lisinopril because of lightheaded. A new patient visit A 22 yo women who was followed by Dr. Mathur since childhood. She was diagnosed with bicus pid AV since because of murmur on physical exam. She is doing well with some limitation in her physical activities. NYHA class II. She does not exercise regularly but reports able to walk on flat surface, cooking, cleaning her house and taking care of 3 nieces. 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 She complains of episodes of light headedness for the last 2-3 years. She described lighthe adedness, feeling heavy, palpitation, sweating, feeling hot, and about to pass out, usually last 5-10 minutes. These episodes is randomly occurred without prodrome and no post ictal ph ase, not associated with activities, or meal. She reports these episodes happened more frequ ent, now q 2 week. Currently not taking any medications. Review of Systems: All pertinent positive symptoms are reported as per the HPI, otherwise a comprehensive 10 systems are reviewed and negative. PMH, PSH - none SH: - smoke 3 cigarettes/day - denied EtOH, illicit drugs - live at home, her sister lives with her and 3 nieces Past Medical History Diagnosis Date CONGENITAL INSUFFICIENCY OF AORTIC VALVE 02/22/2005 RTC 2 YR, TEST= ECHO CONGENITAL STENOSIS OF AORTIC VALVE 02/22/2005 No past surgical history on file. Allergies Allergen Reactions Pollen Extracts Physical Exam BP 124/84 | Pulse 68 | Temp (Src) 36.7 C (98 F) (Oral) | Ht 1.702 m (5' 7") | Wt 86.501 kg (190 lb 11.2 oz) | SpO2 100% | BMI 29.86 kg/(m^2) GEN: no acute distress, breathing comfortably, alert and oriented X3 HEENT: sclera anicteric, JVP at 6-8 cm CV: RRR, normal S1, S2, 2/6 SHANNA at LPSB, 1/6 diastolic murmur at LPSB, trill at over supras ternal notch. CHEST: bilateral breath sounds, lungs clear to ascultation, no rales ABD: soft, non-tender, non-distended EXT: no edema SKIN: warm, no rash No results found for this basename: na,k,cl,bicarb,bun,cr,glu,ca No results found for this basename: wbc,hb,hct,plt,mcv,rdw No results found for this basename: CHOL, LDL, HDL, TRI, in the last 8640 hours No results found for this basename: a1c No results found for this basename: tsh Echocardiogram: 2010 1. Functionally bicuspid aortic valve. 2. Moderate aortic regurgitation. 3. Mild aortic stenosis. 4. Dilated ascending aorta, mild. 5. Left ventricular size is normal. 6. Normal left ventricular systolic function with flat septal motion. Assessment A 22 y.o. patient who presents for new patient visit. Diagnosis/ Assessment 1. Bicuspid aortic valve - Mild and mild AI - Cannot tolerate lisinopril because of lightheaded. 2. Episodes of light headesness She has normal functional capacity. Echo revealed normal LV size and function, mild and AI with normal aortic root size. The etiology of light headedness episodes is unknown but un likely to relate to hemodynamics or aortic valve disease. Ordered event monitor to evaluate for arrhythmia. Recommendation - Treatment changes: none - Tests ordered: event monitor - Return appointment in 2 years with echo Case seen and discussed with Wilfred Christiansen MD who agrees with the above said assessment an d plan. Allison Ford MD (Green) CV Fellow Division of Cardiovascular Medicine [facility] Pager [phone] documented in this encounter Plan of Treatment + +------+--------+ + + | Name | Type | Priori | Associated Diagnoses | Order Schedule | | | | ty | | | + +------+--------+ + + | 30 DAY CARDIAC | ECG | Routin | Bicuspid aortic | Ordered: 01/13/2013 | | MONITOR - ECG | | e | valve | | + +------+--------+ + + | TRANSTHORACIC | ECG | Routin | Bicuspid aortic | Ordered: 01/13/2013 | | ECHOCARDIOGRAM, | | e | valve | | | ADULT | | | | | + +------+--------+ + + documented as of this encounter Procedures + +--------+ + + + | Procedure Name | Priori | Date/Time | Associated Diagnosis | Comments | | | ty | | | | + +--------+ + + + | EJECTION FRACTION | Routin | 01/13/2013 | | Results for this | | | e | 10:18 AM | | procedure are in the | | | | PDT | | results section. | + +--------+ + + + documented in this encounter Results EJECTION FRACTION (01/13/2013 10:18 AM PDT) + + + + + + | Component | Value | Ref Range | Performed | Pathologist | | | | | At | Signature | + + + + + + | EJECTION | 65 - 70%Comment: EF | | [facility] DEPT | | | FRACTION | Recorded from | | OF | | | | Transthoracic | | CARDIOLOGY | | | | Echocardiogram | | | | + + + + + + + + | Specimen | + + | | + + + + + + + | Performing | Address | City/State/Zipcode | Phone Number | | Organization | | | | + + + + + | [facility] | [address] | [place], [place] | | | CARDIOLOGY | [address] | [address] | | + + + + + documented in this encounter Visit Diagnoses + + | Diagnosis | + + | Bicuspid aortic valve - Primary Congenital insufficiency of aortic valve | + + | Light headedness Dizziness and giddiness | + + documented in this encounter
--- OUTSIDE RECORDS SUMMARY | ~2020-02-03 | XMS | Encounter Summary ---
Demographics + + + | Address | [address] | | | [place] [address] | + + + | Home Phone [...] + + + | Author | [facility] | + + + | Organization | [facility] | + + + | Address | Unknown | + + + | Phone | Unavailable | + + + Support + + + + + | Name | Relationship | Address | Phone | + + + + + | Rhona Douglas | ECON | [address] | | | | | [place] | | | | | [address] | | + + + + + | David Douglas | ECON | [address] | | | | | [place] | | | | | [address] | | + + + + + Care Team Providers + +------+ + | Care Reinforcement Maker Name | Role | Phone | + +------+ + PCP | Unavailable | + +------+ + Encounter Details +--------+ + + + + | Date | Type | Department | Care Team | Description | +--------+ + + + + | 10/23/ | Office | [facility] | Note, Outpatient | Progress Note | | 2001 | Visit-Trans | MEDICINE | Clinic | [...] as of this encounter Progress Notes Interface, Tariff Compiling Clerk In - 03/19/2006 4:32 AM PDTCLINIC DATE: 10/23/2001 [facility] SUBJECTIVE: Anusha is a young girl of 11 who has been followed with the diagnosis of aortic stenosis and regurgitation. Previously, she had been followed in [place] when the family was there for a short time. In the interim years, she has been getting along well and continues to participate in physical education at school and likes to play soccer but is not on an organized team. She is maintained on lisinopril 5 mg daily, which she takes regularly, missing perhaps only twice a month. OBJECTIVE: On examination today, she is alert, in no distress, without cyanosis. She weighs 97 lb and she is 57-3/4 inches tall. Blood pressure initially taken probably with a small cuff was 125/63 and subsequently, with an adult cuff, was 100/54. Heart rate is 83 per minute and regular; her arterial saturation by pulse oximeter at room air is 98%. Palpation of the precordium reveals no overactivity nor thrill. There is a thrill palpable in the supramanubrial notch. Abdomen examination is negative, without hepatosplenomegaly, masses, or tenderness. She has good pulses in all extremities, and no edema is noted. No neck vein distention is noted. The lungs are clear to auscultation. Cardiac auscultation reveals a systolic ejection murmur along the left sternal border into the third interspace, transmitted into the aortic area. After a normally split second sound, there is a grade 2 immediate diastolic murmur persisting through half of diastole at least. I did not appreciate an Anatoliy [place] murmur. Her echocardiogram was unchanged showing her left ventricle to be slightly enlarged but at the same measurement as previously at 47 mm in diastole. IMPRESSION: Anusha continues to do well. We will continue to follow her conservatively. I am hoping that she will not need any interventions until she is a young adult. I increased her lisinopril to 5 mg twice daily and asked to see her again in one year. I did not restrict her physical activities. She should continue to take prophylactic antibiotics when she is at risk of bacteremia to reduce the risk of bacterial endocarditis. Jhonny Joyce M.D. Professor, Pediatric Cardiology LYNN/vito cc: [facility] [address] [place] [id number] signed by Interface, Tariff Compiling Clerk In at 03/19/2006 4:32 AM PDTdocumented in this encounter Plan of Treatment Not on filedocumented as of this encounter Visit Diagnoses Not on filedocumented in this encounter"
--- OUTSIDE RECORDS SUMMARY | ~2020-02-03 | XMS | Encounter Summary ---
Demographics + + + | Address | [address] | | | [place] [address] | + + + | Home Phone | | + + + | Preferred Language | Unknown | + + + | Marital Status | Single | + + + | Holiness Affiliation | Unknown | + + + | Race | White | + + + | Ethnic Group | Not or | + + + Author + + + | Author | [facility] | + + + | Organization | [facility] | + + + | Address | Unknown | + + + | Phone | Unavailable | + + + Support + + + + + | Name | Relationship | Address | Phone | + + + + + | Rhona Douglas | ECON | [address] | | | | | [place] | | | | | [address] | | + + + + + | David Douglas | ECON | [address] | | | | | [place] | | | | | [address] | | + + + + + Care Team Providers + +------+ + | Care Meat Curer Name | Role | Phone | + +------+ + PCP | Unavailable | + +------+ + Encounter Details +--------+ + + + + | Date | Type | Department | Care Team | Description | +--------+ + + + + | 05/08/ | Office | General Internal | Note, Outpatient | Progress Note | | 1994 | Visit-Trans | Medicine [address] | Clinic | | | | raiza | [facility] | | | | | | Mailcode: [id number] | | | | | | Outpatient Clinic | | | | | | [facility], [address] | | | | | | [place], [place] | | | | | | [address] | | | | | | [phone] | | | +--------+ + + + [...] as of this encounter Progress Notes Interface, Extrusion Machine Operator In - 10/21/2006 3:05 AM PDT CLINIC DATE: 05/08/95 CLINIC SITE: [place] Tavares is an almost 5-year old girl with aortic valve abnormality manifest by mild aortic stenosis and regurgitation. She is seen after an interval of one year and in this interval, has continued to get along well without cardiac symptoms or signs. On examination, she is alert and in no distress. She weighs 34.75 pounds and is 40.5 inches tall. Blood pressure is 95/53. Heart rate is 85/min. Arterial saturation, by pulse oximeter at room air, is 100%. Palpation of the precordium reveals no overactivity or thrill; abdominal examination is negative, without hepatosplenomegaly. She has good pulses in both upper and lower extremities. On auscultation, she has a systolic ejection murmur followed by a Grade I-II, immediate, short diastolic murmur at the third left interspace. The systolic murmur is of Grade III intensity. She had an electrocardiogram taken prior to her visit here today and this I would interpret to be within normal limits, showing no evidence of left ventricular hypertrophy. Anusha continues to get along very well. She has mild aortic valve disease. At this time, there is no reason to restrict her activities in any way. She should have prophylactic antibiotics when she is at risk of bacteremia to prevent bacterial endocarditis. Will plan to follow her conservatively and asked to see her again in one year's time, at which time we would like to repeat the echo. Jhonny Joyce M.D. Professor of Pediatrics Division of Pediatric Cardiology Tasneem P cc: [facility] documented in this encounter Plan of Treatment Not on filedocumented as of this encounter Visit Diagnoses Not on filedocumented in this encounter"
--- OUTSIDE RECORDS SUMMARY | ~2020-02-03 | XMS | Encounter Summary ---
Demographics + + + | Address | [address] | | | [place] [address] | + + + | Home Phone | | + + + | Preferred Language | Unknown | + + + | Marital Status | Single | + + + | Caodaism Affiliation | Unknown | + + + [...] [place] | | | | | [address] | | + + + + + | [place] Douglas | ECON | [address] | | | | | [place] | | | | | [address] | | + + + + + Care Team Providers + +------+ + | Care Melt House Centrifugal Operator Name | Role | Phone | [...] | MANAGEMENT [address] | [address] [facility] | consultation | | | | [facility] | Road [place], [place] | | | | | [place], [place] | [address] | | | | | [address] | | | +--------+ + + + [...]
--- OUTSIDE RECORDS SUMMARY | ~2020-02-03 | XMS | Encounter Summary ---
Demographics + + + | Address | [address] | | | [place] [address] | + + + | Home Phone | | + + + | Preferred Language | Unknown | + + + | Marital Status | Single | + + + | Buddhism Affiliation | Unknown | + + + | Race | White | + + + | Ethnic Group | Not or | + + + Author + + + | Organization | Unknown | + + + | Address | Unknown | + + + | Phone | Unavailable | + + + Support + + + + + | Name | Relationship | Address | Phone | + + + + + | Rhona Douglas | ECON | [address] | | | | | [place], [place] | | | | | [address] | | + + + + + | David Douglas | ECON | [address] | | | | | [place], [place] | | | | | [address] | | + + + + + Care Team Providers + +------+ + | Care Rn Clinical Resource Name | Role | Phone | + +------+ + PCP | Unavailable | + +------+ + Encounter Details +--------+ + + + + | Date | Type | Department | Care Team | Description | +--------+ + + + + | 02/22/ | Office | | Note, Outpatient | Progress Note | | 2005 | Visit-Trans | | Clinic | | | | cribed [...] as of this encounter Progress Notes Interface, Cloth Shrinking Tester In - 03/12/2005 5:01 AM [facility] [id number] JOE ANUSHA Clinic Date: 02/22/2005 Clinic: [facility] Anusha is now almost 15. She is a young girl with aortic valve abnormality manifest by mild stenosis and lybg-gv-jwomfwxi regurgitation. She has been on lisinopril 5 mg twice daily which she has been taking rather consistently, may be missing one or two doses a week. She is asymptomatic with regard to her cardiovascular state. Physical Examination: General: She is alert in no distress without cyanosis. Vital Signs: She weighs 131-1/2 pounds. She is 66-1/4 inches tall. Respiratory rate is 14 per minute and regular, blood pressure is 111/61, heart rate is 54 per minute, and her arterial saturation by pulse oximeter at room air is 100%. Neck: No neck vein distention is noted. Lungs: Clear to auscultation. Cardiac: Palpation of precordium reveals no overactivity nor thrill. Cardiac auscultation reveals an ejection click followed by a short systolic murmur in the aortic area. At Erb's point, this murmur is followed by an immediate diastolic murmur which persists through two-thirds of diastole. I did not hear an Anatoliy Finley murmur at the apex. I did not appreciate S3 or S4 either. Abdomen: Negative without hepatosplenomegaly, masses, or tenderness. Extremities: She has good pulses in all extremities. These pulses are synchronous and of equal amplitude and seem normal in their amplitude. No edemas noted. Diagnostic Data: She had an echocardiogram done and this showed no essential change from previously showing only a mild aortic gradient in systole and wywx-nq-gzijrfex aortic valve regurgitation. Her ventricle measured 55 mm in diastole which accounting for her growth probably essentially unchanged from her previous findings. She had good ventricular function. I spent some time with Anusha discussing her lesion relating that sometime in the future, she will require aortic valve surgery that certainly, we will hope that there is better alternative when she needs this surgery. In the meantime, we would want to follow her, and I asked to see her again in 2 years' time with an echo. The only precaution is prophylactic antibiotics at when she might be at risk of bacteremia to reduce the risk of bacterial endocarditis. Jhonny Joyce M.D. Professor of Pediatrics Division of Pediatric Cardiology [facility] / [id number] / [id number] / [id number] / cc: Praveen Champagne, DO [address] [place] [address] Electronically signed by Jhonny Joyce 03-11-2005 07:59:38 AM documented i n this encounter Plan of Treatment Not on filedocumented as of this encounter Visit Diagnoses Not on filedocumented in this encounter"
--- OUTSIDE RECORDS SUMMARY | ~2020-02-03 | XMS | Encounter Summary ---
Demographics + + + | Address | [address] | | | [place] [address] | + + + | Home Phone | | + + + | Preferred Language | Unknown | + + + | Marital Status | Single | + + + | Mandaen Affiliation | Unknown | + + + [...] [place] | | | | | [address] | | + + + + + | David Douglas | MARTA | [address] | | | | | [place] | | | | | [address] | | + + + + + Care Team Providers + +------+ + | Care Outbound Telemarketing Representative Name | Role | Phone | + +------+ + | Robert Patiño | PCP | | + +------+ + Reason for Visit Diagnostic Testing (Routine) +--------+--------+ + + + + | Status | Reason | Specialty | Diagnoses / | Referred By | Referred To | | | | | Procedures | Contact | Contact | +--------+--------+ + + + + | Closed | | Cardiology | Diagnoses | Lue, | Car Achd | | | | | Congenital | Jhonny Madrigal MD | [address] | | | | | insufficienc | [address] | | | | | y of aortic | [facility] | [facility] | | | | | valve | [facility] | Health and | | | | | Bicuspid | [place], [place] | Healing, | | | | | aortic valve | [address] | [address], | | | | | Procedures | | 9th Floor | | | | | | | [place], [place] | | | | | TRANSTHORACI | | [address] | | | | | C | | Phone: | | | | | ECHOCARDIOGR | | [phone] | | | | | AM, ADULT | | Fax: | | | | | | | [phone] | +--------+--------+ + + + + Encounter Details +--------+---------+ + + + | Date | Type | Department | Care Team | Description | +--------+---------+ + + + | 03/01/ | Office | Cardiology [facility] at | Wilfred Christiansen, | Bicuspid aortic | | 2015 | Visit | [facility] [address] | MD [address] | valve (Primary Dx); | | | | Ave [facility] for | [place], [place] | Aortic insufficiency | | | | Health and Healing, | [address] | due to bicuspid | | | | | [phone] | aortic valve; | | | | Floor [place], [place] | | Tobacco abuse | | | | [address] | | | | | | [phone] | | | +--------+---------+ + + + [...] Pressure | 123/58 | 03/01/2015 10:08 AM | | | | | PDT | | + + + + + | Pulse | 64 | 03/01/2015 10:08 AM | | | | | PDT | | + + + + + | Temperature | 36.7 C (98 F) | 03/01/2015 10:08 AM | | | | | PDT | | + + + + + | Respiratory Rate | - | - | | + + + + + | Oxygen Saturation | 99% | 03/01/2015 10:08 AM | | | | | PDT | | + + + + + | Inhaled Oxygen | - | - | | | Concentration | | | | + + + + + | Weight | 94.3 kg (208 lb) | 03/01/2015 10:08 AM | | | | | PDT | | + + + + + | Height | 172.7 cm (5' 8") | 03/01/2015 10:08 AM | | | | | PDT | | + + + + + | Body Mass Index | 31.63 | 03/01/2015 10:08 AM | | | | | PDT | | + + + + + documented in this encounter Patient Instructions Patient Instructions Wilfred Christiansen MD - 03/01/2015 10:33 AM [place] will plan on repeatin g your echocardiogram in 2 years. Keep up the efforts at smoking cessation and weight maintenance. See us in 2 years. Thank you for your visit today. [facility] MD Konstantin Kern MD PhD Vidya Rincon, MD Candice Luther, RN Important Phone Numbers Adult Congenital Cardiology Office: [phone] (ask for Brenda) Clinic Nurse, Noemy Wang: [phone] Clinic [phone] Echo lab [phone] Radiology Scheduling (including MRI): [phone] Pulmonary function [phone] laborer bituminous paving [phone] After hours emergency: [phone] Long distance: Website: [email or web address] We support the Adult Congenital Heart Association and invite you to be a member, to promote patient peer support, education, community events, patient advocacy, and research in congen ital heart disease. [email or web address] PLEASE JOIN US: 2014 [facility] Congenital Heart Walk Thursday, March 26, 2015 [facility] [place] Time: Registration begins at 10:00 AM / Walk kicks off at 11:00 AM [place] @ [email or web address] documented in this encounter Progress Notes Wilfred Christiansen MD - 03/01/2015 10:23 AM PDTFormatting of this note might be different fr om the original. ADULT CONGENITAL HEART CLINIC PROGRESS NOTE Anusha [place] is a 24 y.o. female here for No chief complaint on file. PCP: Robert PATIÑO Referring: Robert Patiño Past Medical History: 1. Bicuspid aortic valve - Mild and mild AI - Cannot tolerate lisinopril because of lightheaded. Patient Active Problem List Diagnosis Date Noted CONGENITAL INSUFFICIENCY OF AORTIC VALVE 02/22/2005 Class: Chronic Overview Note: RTC 2 YR, TEST= ECHO CONGENITAL STENOSIS OF AORTIC VALVE 02/22/2005 Class: Chronic Current History: Patient is doing fine. Had a baby since last visit. went well and she had no pr oblems. No further lightheadedness. Patient does not report any recent chest pain, palpita tions, syncope, or unexplained dyspnea. ROS: As above, all other reviewed systems were negative, specifically, no headaches, swall owing problems, cough or hemoptysis, heat or cold intolerance, nausea, vomiting, diarrhea, h ematuria, melena, fever, chills, shakes, rash or bruise, numbness or tingling. 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 Quit smoking a bit then but now she's started again; a few cigarettes/day. Lives with boyfriend and son. No current outpatient prescriptions on file. No current facility-administered medications for this visit. Physical Exam: BP 123/58 | Pulse 64 | Temp (Src) 36.7 C (98 F) (Oral) | Ht 1.727 m (5' 8") | Wt 94.348 kg (208 lb) | SpO2 99% | BMI 31.63 kg/(m^2) GEN: Well appearing JVP: Not elevated. Normal waveform CAROTID: Normal upstroke. CHEST: Normal respiratory effort. Clear to auscultation throughout. HEART: Regular rate and rhythm. 2/6 systolic murmur. Ejection click. No diastolic murm ur. Second heart sound normal. ABDOM: Soft, non tender, no organomegaly EXTREM: No edema, no clubbing SKIN: Warm and dry NEURO: Awake and oriented DATA: No results found for this basename: cr,k No results found for this basename: hb,hct Lab Results Lab Test Name Value Date RATE 63 03/01/2015 ATRIALRATE 61 03/01/2015 FL 164 03/01/2015 QRS 96 03/01/2015 QT 408 03/01/2015 PAXIS -10 03/01/2015 RAXIS -9 03/01/2015 TAXIS 34 03/01/2015 Echo yesterday 1. The left ventricular cavity size is normal. 2. There is no left ventricular hypertrophy. 3. The LV ejection fraction is normal. 4. The aortic valve is likely [place]bi[place]osh[place] bicuspid. 5. Mild aortic valve stenosis (see below). 6. Mild to moderate aortic regurgitation. 7. Right ventricular size, thickness and function are normal. 8. Compared to the most recent exam dated, 0, LVEF is unchanged. Aortic regurgitation severity is mildly increased with an associated increase in peak/mean AV gradients. Impression: Stable BAV function No concerning developments since our last visit though her valve function is slightly worse compared to prior. Vitals controlled. Recommendations/Plan: Patient will work on weight loss and smoking cessation Will plan to see us back for another echo. Return for follow-up visit in 24 months. We had a discussion about the risks of endocarditis related to oral vicente, emphasising the need for routine oral hygiene and indications for antibiotic prophylaxis in patients with re sidual shunts around a patch, prosthetic valves including homografts, cyanosis, or prior hea rt transplant. Regular brushing/flossing and dental visits were emphasized. Based on this our recommendations are that prophylactic antibiotics are not indicated. Medication change? Y/N n Referral? (Interventional cardiology/EP/surgical)? Y/N n Plan to call patient? Y/N n Who will call patient and when? documented in this e ncounter Plan of Treatment Not on filedocumented as of this encounter Visit Diagnoses + + | Diagnosis | + + | Bicuspid aortic valve - Primary Congenital insufficiency of aortic valve | + + | Aortic insufficiency due to bicuspid aortic valve | + + | Tobacco abuse Tobacco use disorder | + + documented in this encounter
--- OUTSIDE RECORDS SUMMARY | ~2020-02-03 | XMS | Encounter Summary ---
Demographics + + + | Address | [address] | | | [place] [address] | + + + | Home Phone | | + + + | Preferred Language | Unknown | + + + | Marital Status | Single | + + + | Yarsani Affiliation | Unknown | + + + [...] [place] | | | | | [address] | | + + + + + | David Douglas | ECON | [address] | | | | | [place] | | | | | [address] | | + + + + + Care Team Providers + +------+ + | Care Receiving And Processing Supervisor Name | Role | Phone | [...] Clinic | | | | | | [facility], [address] | | | | | | [place], [place] | | | | | | [address] | | | | | | [phone] | | | +--------+ + + + [...] as of this encounter Progress Notes Interface, Brick Unloader Tender In - 10/21/2006 3:05 AM PDT CLINIC [...] Division of Pediatric Cardiology Tasneem P cc: [facility] documented in this encounter Plan of Treatment Not on filedocumented as of this encounter Visit Diagnoses Not on filedocumented in this encounter"
--- OUTSIDE RECORDS SUMMARY | ~2020-02-03 | XMS | Encounter Summary ---
Demographics + + + | Address | [address] | | | [place] [address] | + + + | Home Phone | | + + + | Preferred Language | Unknown | + + + | Marital Status | Single | + + + | Zoroastrian Affiliation | Unknown | + + + | Race | White | + + + | Ethnic Group | Not or | + + + Author + + + | Author | [facility] | + + + | Organization | [facility] | + + + | Address | Unknown | + + + | Phone | Unavailable | + + + Support + + + + + | Name | Relationship | Address | Phone | + + + + + | Rhona Douglas | ECON | [address] | | | | | [place] | | | | | [address] | | + + + + + | David Douglas | ECON | [address] | | | | | [place] | | | | | [address] | | + + + + + Care Team Providers + +------+ + | Care Bookkeeper Name | Role | Phone | + +------+ + PCP | Unavailable | + +------+ + Encounter Details +--------+ + + + + | Date | Type | Department | Care Team | Description | +--------+ + + + + | 05/06/ | Office | General Internal | Note, Outpatient | Progress Note | | 1995 | Visit-Trans | Medicine [address] | Clinic | | | | raiza | [facility] | | | | | | Mailcode: [id number] | | | | | | Outpatient Clinic | | | | | | [facility], [address] | | | | | | [place], [place] | | | | | | [address] | | | | | | [phone] | | | +--------+ + + + [...] as of this encounter Progress Notes Interface, Ocean Export Agent In - 09/27/2006 3:02 AM PDT CLINIC DATE: 05/06/96 [facility] Anusha is a , almost 6-year-old girl who we have seen previously with the diagnosis of mild aortic stenosis. In the interim since we saw her, she has continued to get along very well and has no cardiac symptoms or signs. She is an active girl. On examination, as before, she is without cyanosis. She weighs 42 lb. She is 43-3/4 inches tall. Her blood pressure is 92/40 and her heart rate is 100 per minute and regular. Palpation of the precordium reveals no overactivity or thrill. Abdominal examination is negative without hepatosplenomegaly. She has good pulses. On auscultation she has a systolic ejection murmur heard at the third left interspace and transmitted into the aortic area. I did not hear an ejection click. Her second sounds are normally split. No diastolic murmur is heard. An echocardiogram was done and showed no significant change from her previous echocardiogram. She has an aortic valve gradient of approximately 30 mm Hg with minimal aortic valve regurgitation. With these findings, I feel that no special precautions are necessary at this time. There is no need to restrict her activities. She should have prophylactic antibiotics when she is at risk of bacteremia to prevent bacterial endocarditis. Jhonny Joyce M.D. Professor, Pediatric Cardiology VM:zack cc: [facility] [address] [place] [address] documented in this encounter Plan of Treatment Not on filedocumented as of this encounter Visit Diagnoses Not on filedocumented in this encounter"
--- OUTSIDE RECORDS SUMMARY | ~2020-02-03 | XMS | Encounter Summary ---
Demographics + + + | Address | [address] | | | [place] [address] | + + + | Home Phone | | + + + | Preferred Language | Unknown | + + + | Marital Status | Single | + + + | Quaker Affiliation | Unknown | + + + | Race | White | + + + | Ethnic Group | Not or | + + + Author + + + | Author | [facility] | + + + | Organization | [facility] | + + + | Address | Unknown | + + + | Phone | Unavailable | + + + Support + + + + + | Name | Relationship | Address | Phone | + + + + + | Rhona Douglas | ECON | [address] | | | | | [place] | | | | | [address] | | + + + + + | David Douglas | MARTA | [address] [place] | | | | | [place] | | | | | [address] | | + + + + + Care Team Providers + +------+ + | Care Roller Repairer Name | Role | Phone | + [...] | | cardiac | [place] | [address] [facility] | | | | | murmurs | [place] | [facility] | | | | | | [facility] | [address] [place], | | | | | | [address] | [place] | | | | | | [place], | [address] | | | | | | [place] [address] | | | | | | | Phone: | | | | | | | [phone] | | | | | | | Fax: | | | | | | | [phone] | | +--------+--------+ + + + + Encounter Details +--------+ + + + + | Date | Type | Department | Care Team | Description | +--------+ + + + + | 02/17/ | Office | Pediatric | Jhonny Joyce, | | | 2006 | Visit-ECX | Cardiology at | | | | | | [place] [address] | | | | | | [address] | | | | | | Pediatric | | | | | | [facility] | | | | | | [place], [place] | | | | | | [address] | | | | | | [phone] | | | +--------+ + + + [...]
--- OUTSIDE RECORDS SUMMARY | ~2020-02-03 | XMS | Encounter Summary ---
Demographics + + + | Address | [address] | | | [place] [address] | + + + | Home Phone | | + + + | Preferred Language | Unknown | + + + | Marital Status | Single | + + + | Catholic Affiliation | Unknown | + + + [...] [place] | | | | | [address] | | + + + + + | David Douglas | [place] | [address] | | | | | [place] | | | | | [address] | | + + + + + Care Team Providers + +------+ + | Care Search Engine Optimizer Name | Role | Phone | + +------+ + | Robert Zelaya | PCP | | + +------+ + Encounter Details +--------+ + + + + | Date | Type | Department | Care Team | Description | +--------+ + + + + | 08/12/ | Ancillary | Registration [id number] | Isiah Jhonny Madrigal, | | | 2004 | Registratio | [address] | | | | | n | Willy Mailcode: [id number] | | | | | | [place], [place] | | | | | | [address] | | | | | | [phone] | | | +--------+ + + + [...]
--- OUTSIDE RECORDS SUMMARY | ~2020-02-03 | XMS | Clinical Summary ---
Demographics + + + | Address | [address] | | | [place] [address] | + + + | Home Phone [...] Author + + + | Author | [facility] | + + + | Organization | [facility] | + + + | Address | Unknown | + + + | Phone | Unavailable | + + + Support + + + + + | Name | Relationship | Address | Phone | + + + + + | Rhona Douglas | ECON | [address] | | | | | [place] | | | | | [address] | | + + + + + | David Douglas | ECON | [address] | | | | | [place] | | | | | [address] | | + + + + + Care Team Providers + +------+ + | Care Lithopone Mill Worker Name | Role | Phone | + +------+ + | Robert Zelaya | PCP | | + +------+ + Source Comments MCKINLEYIZABELLA is fully live on both EpicCare Ambulatory and EpicCare InPatient.[facility] Allergies + + + + + + | Active Allergy | Reactions | Severity | Noted | Comments | | | | | Date | | + + + + + + | Pollen Extracts | | | 02/22/20 | | | | | | 09 | | + + + + + + Medications No known medications Active Problems + [...] recent travel history available. | + + Last Filed Vital Signs + [...] Rate | 16 | 01/04/2011 9:30 AM | | | | | PDT [...] | + + + + + | Influenza (Flu) | | | | | vaccination (#1) | 9 | | | + + + + + | Pneumococcal | Aged Out | | No longer eligible | | vaccination | | | based on patient's | | | | | age to complete this | | | | | topic | + + + + + Results Not on filefrom Last 3 Months Insurance + +--------+ +--------+ + +--------+ | Payer | Benefi | Subscriber | Effect | Phone | Address | Type | | | t Plan | ID | chavez | | | | | | / | | Dates | | | | | | Group | | | | | | + +--------+ +--------+ + +--------+ | [place] | OHP | xxxxxxxx | | [phone] | [address] | [address] | | | PLUS | | [phone] | id | | | OPEN | | esent | | [place], [place] | | | | CARD | | | | [phone] | | + +--------+ +--------+ + +--------+ | [facility] | [facility] | xxxxxxxxx | Effect | | | Agency | | SERVICE | | | chavez | | | | | | HEALTH | | for | | | | | | | | all | | | | | | SERVIC | | dates | | | | | | E | | | | | | + +--------+ +--------+ + +--------+ + +--------+ +--------+ + + | Guarantor [...] | | al/Fam | | 1989 | [phone] | [place] [address] | | | nick | | | 3 (Home) | | | | | | | [phone] | | | | | | | 4 (Work) | | + +--------+ +--------+ + + Advance Directives + + + + + | Type | Date Recorded | Patient | Explanation | | | | Bankruptcy Manager | | + + + + + | Advance | | | | | Directives and | | | | | Living Will | | | | + + + + + | Power of | | | | | Mercury Washer | | | | + + + + +
--- OUTSIDE RECORDS SUMMARY | ~2020-02-03 | XMS | Encounter Summary ---
Demographics + + + | Address | [address] | | | [place] [address] | + + + | Home Phone [...] + + + | Author | [facility] | + + + | Organization | [facility] | + + + | Address | Unknown | + + + | Phone | Unavailable | + + + Support + + + + + | Name | Relationship | Address | Phone | + + + + + | Rhona Douglas | ECON | [address] | | | | | [place] | | | | | [address] | | + + + + + | David Douglas | MARTA | [address] | | | | | [place] | | | | | [address] | | + + + + + Care Team Providers + +------+ + | Care Coordinator Cardiopulmonary Services Name | Role | Phone | + [...] | Congenital | Wilfred Wilder MD | [facility] [address] | | | | | insufficienc | [address] | [address] | | | | | y of aortic | Ave | [address] | | | | | valve | [place], [place] | [place] | | | | | Congenital | [address] | [facility], 2nd | | | | | stenosis of | Phone: | floor | | | | | aortic valve | [phone] | [place], [place] | | | | | Procedures | Fax: | [address] | | | | | | [phone] | Phone: | | | | | TRANSTHORACI | | [phone] | | | | | C | | | | | | | ECHOCARDIOGR | | | | | | | AM, ADULT | | | +--------+--------+ + + + + Encounter Details +--------+ + + + + | Date | Type | Department | Care Team | Description | +--------+ + + + + | 02/28/ | Hospital | Cardiac | | | | 2014 | Encounter | Non-Invasive Testing | | | | | | at [facility] [address] | | | | | | Ave [facility] | | | | | | Health and Healing, | | | | | | [address] | | | | | | [place], [place] | | | | | | [address] | | | | | | [phone] | | | +--------+ + + + [...] + documented as of this encounter Progress Danielle Jung - 02/28/2015 5:03 PM PDTTransthoracic echocardiogram completed. Final r eport to follow. documented in this enco unter Plan of Treatment Not on filedocumented as of this encounter Procedures + +--------+ + + + | Procedure Name | Priori | Date/Time | Associated Diagnosis | Comments | | | ty | | | | + +--------+ + + + | EJECTION FRACTION | Routin | 02/28/2015 | | Results for this | | | e | 3:13 PM | | procedure are in the [...] documented in this encounter Results EJECTION FRACTION (02/28/2015 3:13 PM PDT) + + + + + + | Component | Value | Ref Range | Performed | Pathologist | | | | | At | Signature | + + + + + + | EJECTION | 60 to 65 | | [facility] | | | FRACTION | | | OF | | | | | | CARDIOLOGY | | + + + + + + | EJECTION | 62.5 | % | [facility] | | | FRACTION | | | OF | | | RANGE MEAN | | | CARDIOLOGY | | | VALUE | | | | | + + + + + + + + | Specimen | + + | | + + + + + + + | Performing | Address | City/State/Zipcode | Phone Number | | Organization | | | | + + + + + | [facility] | [address] | [place], [place] | | | CARDIOLOGY | [address] | [address] | | + + + + + documented in this encounter Visit Diagnoses + + | Diagnosis | + + | Congenital insufficiency of aortic valve - Primary | + + | Congenital stenosis of aortic valve | + + documented in this encounter"
--- OUTSIDE RECORDS SUMMARY | ~2020-02-03 | XMS | Encounter Summary ---
Demographics + + + | Address | [address] | | | [place] [address] | + + + | Home Phone | | + + + | Preferred Language | Unknown | + + + | Marital Status | Single | + + + | Taoism Affiliation | Unknown | + + + [...] [place] | | | | | [address] | | + + + + + | David Douglas | MARTA | [address] | | | | | [place] | | | | | [address] | | + + + + + Care Team Providers + +------+ + | Care Home Visit Field Care Manager Name | Role | Phone | [...] | Congenital | Wilfred Wilder MD | [facility] [address] | | | | | insufficienc | [address] | [address] | | | | | y of aortic | Ave | [address] | | | | | valve | [place], [place] | [place] | | | | | Congenital | [address] | [facility], 2nd | | | | | stenosis of | Phone: | floor | | | | | aortic valve | [phone] | [place], [place] | | | | | Procedures | Fax: | [address] | | | | | | [phone] | Phone: | | | | | TRANSTHORACI | | [phone] | | | | | C | [...] | | | | | | at [facility] [address] | | | | | | Ave [facility] | | | | | | Health and Healing, | | | | | | [address] | | | | | | [place], [place] | | | | | | [address] | | | | | | [phone] | | | +--------+ + + + [...]
--- OUTSIDE RECORDS SUMMARY | ~2020-02-03 | XMS | Encounter Summary ---
Demographics + + + | Address | [address] | | | [place] [address] | + + + | Home Phone [...] Author + + + | Author | [facility] | + + + | Organization | [facility] | + + + | Address | Unknown | + + + | Phone | Unavailable | + + + Support + + + + + | Name | Relationship | Address | Phone | + + + + + | Rhona Douglas | ECON | [address] | | | | | [place] | | | | | [address] | | + + + + + | David Douglas | MARTA | [address] [place] | | | | | [place] | | | | | [address] | | + + + + + Care Team Providers + +------+ + | Care Medicare Contact Specialist Name | Role | Phone | + [...] | Congenital | Wilfred Wilder MD | [facility] [address] | | | | | insufficienc | [address] | [address] | | | | | y of aortic | Ave | [address] | | | | | valve | [place], [place] | [place] | | | | | Congenital | [address] | [facility], 2nd | | | | | stenosis of | Phone: | floor | | | | | aortic valve | [phone] | [place], [place] | | | | | Procedures | Fax: | [address] | | | | | | [phone] | Phone: | | | | | TRANSTHORACI | | [phone] | | | | | C | [...] | | | | | | at [facility] [address] | | | | | | Ave [facility] | | | | | | Health and Healing, | | | | | | [address] | | | | | | [place], [place] | | | | | | [address] | | | | | | [phone] | | | +--------+ + + + [...] DEPT OF | [address] | [place], [place] | | | CARDIOLOGY | [address] | [address] | | + + + + + documented in this encounter Visit Diagnoses + + | Diagnosis | + + | Congenital insufficiency of aortic valve - Primary | + + | Congenital stenosis of aortic valve | + + documented in this encounter"
--- OUTSIDE RECORDS SUMMARY | ~2020-02-03 | XMS | Encounter Summary ---
Demographics + + + | Address | [address] | | | [place] [address] | + + + | Home Phone | | + + + | Preferred Language | Unknown | + + + | Marital Status | Single | + + + | Sikh Affiliation | Unknown | + + + [...] [place] | | | | | [address] | | + + + + + | David Douglas | MARTA | [address] | | | | | [place] | | | | | [address] | | + + + + + Care Team Providers + +------+ + | Care Coating Technician Name | Role | Phone | [...] | Pediatric | Diagnoses | Wade, | Isiah | | | | Cardiology | Congenital | RYAN Bennett | Jhonny Madrigal MD | | | | | stenosis of | [place] | [address] | | | | | aortic valve | [place] | [facility] | | | | | | [facility]ALTH [facility] | [address] [place], | | | | | | [address] | [place] | | | | | | [place], | [address] | | | | | | [place] [address] | | | | | | | Phone: | | | | | | | [phone] | | | | | | | Fax: | | | | | | | [phone] | | +--------+--------+ + + + + Encounter Details +--------+ + + + + | Date | Type | Department | Care Team | Description | +--------+ + + + + | 01/21/ | Office | Pediatric | Jhonny Joyce, | | | 2007 | Visit-ECX | Cardiology at | | | | | | [place] [address] | | | | | | [address] | | | | | | Pediatric | | | | | | SpecialiSts | | | | | | [place], [place] | | | | | | [address] | | | | | | [phone] | | | +--------+ + + + [...] + + + | Blood Pressure | 110/58 | 01/22/2008 3:15 PM | | | | | PDT | | + + + + + | Pulse | 51 | 01/22/2008 3:15 PM | | | | | PDT | | + + + + + | Temperature | - | - | | + + + + + | Respiratory Rate | 18 | 01/22/2008 3:15 PM | | | | | PDT | | + + + + + | Oxygen Saturation | 99% | 01/22/2008 3:15 PM | | | | | PDT | | + + + + + | Inhaled Oxygen | - | - | | | Concentration | | | | + + + + + | Weight | 67.9 kg (149 lb 12 | 01/22/2008 3:15 PM | | | | oz) | PDT | | + + + + + | Height | 170.2 cm (5' 7") | 01/22/2008 3:15 PM | | | | | PDT | | + + + + + | Body Mass Index | 23.45 | 01/22/2008 3:15 PM | | | | | PDT | | + + + + + documented in this encounter Plan of Treatment Not on filedocumented as of this encounter Visit Diagnoses Not on filedocumented in this encounter
--- OUTSIDE RECORDS SUMMARY | ~2020-02-03 | XMS | Encounter Summary ---
Demographics + + + | Address | [address] | | | [place] [address] | + + + | Home Phone [...] [place] | | | | | [address] | | + + + + + | David Douglas | MARTA | [address] | | | | | [place] | | | | | [address] | | + + + + + Care Team Providers + +------+ + | Care Moving Van Driver Name | Role | Phone | + +------+ + | Robert Zelaya | PCP | | + +------+ + Encounter Details +--------+ + + + + | Date | Type | Department | Care Team | Description | +--------+ + + + + | 08// | Ancillary | Registration [address] | Isiah Jhonny Madrigal, | | | 2006 | Registratio | [address] | | | | | ruba | Willy Mailcode: [id number] | | | | | | [place], [place] | | | | | | [address] | | | | | | [phone] | | | +--------+ + + + [...]
--- OUTSIDE RECORDS SUMMARY | ~2020-02-03 | XMS | Encounter Summary ---
Demographics + + + | Address | [address] | | | [place] [address] | + + + | Home Phone | | + + + | Preferred Language | Unknown | + + + | Marital Status | Single | + + + | Restorationism Affiliation | Unknown | + + + [...] [place] | | | | | [address] | | + + + + + | David Douglas | MARTA | [address] | | | | | [place] | | | | | [address] | | + + + + + Care Team Providers + +------+ + | Care Zigzag Tunnel Elastic Operator Name | Role | Phone | [...] Cedric | | | | | | [facility] | | | | | | [address] | | | | | | C[place] | | | | | | [facility] | | | | | | 7th Floor [place], | | | | | | [place] [address] | | | | | | [phone] | | | +--------+ + + + [...]
--- OUTSIDE RECORDS SUMMARY | ~2020-02-03 | XMS | Encounter Summary ---
Demographics + + + | Address | [address] | | | [place] [address] | + + + | Home Phone [...] Author + + + | Author | [facility] | + + + | Organization | [facility] | + + + | Address | Unknown | + + + | Phone | Unavailable | + + + Support + + + + + | Name | Relationship | Address | Phone | + + + + + | Rhona Douglas | ECON | [address] | | | | | [place] | | | | | [address] | | + + + + + | [place] | MARTA | [address] | | | | | [place] | | | | | [address] | | + + + + + Care Team Providers + +------+ + | Care Activity Specialist Name | Role | Phone | [...] | | Bicuspid | Ariyachaipan | [facility] [address] | | | | | aortic valve | , [place], | [address] | | | | | Procedures | MD [address] | [address] | | | | | | [address] | [place] | | | | | TRANSTHORACI | [address] | Building, 2nd | | | | | C | [place], [place] | floor | | | | | ECHOCARDIOGR | [address] | [place], [place] | | | | | AM, ADULT | | [address] | | | | | | | Phone: | | | | | | | [phone] | +--------+--------+ + + + + Reason [...] | | valve | [address] | [place], [place] | | | | | Bicuspid | [place], [place] | [address] | | | | | aortic valve | [address] | Phone: | | | | | Procedures | | [phone] | | | | | | | Fax: | | | | | TRANSTHORACI | | [phone] | | | | | C | [...] aortic | | 2013 | Visit | [facility] [address] | MD [address] | valve (Primary Dx); | | | | Ave Center for | [facility] [place] | Light headedness | | | | Health and Healing, | [address] | | | | | | [phone] | | | | | Floor [place], [place] | | | | | | [address] | | | | | | [phone] | | | +--------+---------+ + + + [...] Dr. Joyce with [facility]. 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 Ligthheadedness episodes n ot easily explained by [...] care of 3 nieces. 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 She complains of episodes of light headedness [...] (Green) CV Fellow Division of Cardiovascular Medicine [facility] Pager [phone] documented in this encounter Plan of Treatment [...] OF | [address] | [place], [place] | | | CARDIOLOGY | [address] | [address] | | + + + + + documented in this encounter Visit Diagnoses + + | Diagnosis | + + | Bicuspid aortic valve - Primary Congenital insufficiency of aortic valve | + + | Light headedness Dizziness and giddiness | + + documented in this encounter
--- OUTSIDE RECORDS SUMMARY | ~2020-02-03 | XMS | Encounter Summary ---
Demographics + + + | Address | [address] | | | [place] [address] | + + + | Home Phone [...] + + + | Author | [facility] | + + + | Organization | [facility] | + + + | Address | Unknown | + + + | Phone | Unavailable | + + + Support + + + + + | Name | Relationship | Address | Phone | + + + + + | Rhona Douglas | ECON | [address] | | | | | [place] | | | | | [address] | | + + + + + | David Douglas | MARTA | [address] | | | | | [place] | | | | | [address] | | + + + + + Care Team Providers + +------+ + | Care Director Data Analytics Name | Role | Phone | + +------+ + | Sabrina Olvera | PCP | | + +------+ + Reason for Referral Consultation (Routine) +--------+--------+ + + + + | Status | Reason | Specialty | Diagnoses / | Referred By | Referred To | | | | | Procedures | Contact | Contact | +--------+--------+ + + + + | Closed | | Cardiology | Diagnoses | Menpatricae, | Car Achd | | | | | Congenital | Jhonny Madrigal MD | [facility] [address] | | | | | insufficienc | [address] | | | | | y of aortic | [address] | Center for | | | | | valve | [facility] | [facility] and | | | | | Bicuspid | [place], [place] | Healing, | | | | | aortic valve | [address] | [address], | | | | | Procedures | | 9th Floor | | | | | CONSULT TO | | [place], [place] | | | | | CARDIOLOGY | | [address] | | | | | | | Phone: | | | | | | | [phone] | | | | | | | Fax: | | | | | | | [phone] | +--------+--------+ + + + + Diagnostic Testing (Routine) +--------+--------+ + + + + | Status | Reason | Specialty | Diagnoses / | Referred By | Referred To | | | | | Procedures | Contact | Contact | +--------+--------+ + + + + | Closed | | Cardiology | Diagnoses | [place], | Car Echo | | | | | Congenital | Jhonny Madrigal MD | [facility] [address] | | | | | insufficienc | [address] | | | | | y of aortic | [address] | [facility] | | | | | valve | [facility] | [facility] and | | | | | Bicuspid | [place], [place] | Healing, | | | | | aortic valve | [address] | [address] | | | | | Procedures | | [place], [place] | | | | | | | [address] | | | | | TRANSTHORACI | | Phone: | | | | | C | | [phone] | | | | | ECHOCARDIOGR | | | | | | | AM, ADULT | | | +--------+--------+ + + + + Reason for Visit + + + | Reason | Comments | + + + | Follow-up Plan | | + + + Encounter Details +--------+---------+ + + + | Date | Type | Department | Care Team | Description | +--------+---------+ + + + | 01/04/ | Office | Pediatric | Jhonny Joyce, | Congenital | | 2010 | Visit | Cardiology at | MD | insufficiency of | | | | C[place]ric | | aortic valve; | | | | [facility] | | Bicuspid aortic | | | | [address] | | valve | | | | C[place]ric | | | | | | [facility] | | | | | | 7th Floor [place], | | | | | | [place] [address] | | | | | | [phone] | | | +--------+---------+ + + + [...] + + + | Blood Pressure | 113/57 | 01/04/2011 9:30 AM | | | | | PDT | | + + + + + | Pulse | 54 | 01/04/2011 9:30 AM | | | | | PDT | | + + + + + | Temperature | - | - | | + + + + + | Respiratory Rate | 16 | 01/04/2011 9:30 AM | | | | | PDT | | + + + + + | Oxygen Saturation | 99% | 01/04/2011 9:30 AM | | | | | PDT | | + + + + + | Inhaled Oxygen | - | - | | | Concentration | | | | + + + + + | Weight | 77.9 kg (171 lb 11.8 | 01/04/2011 9:30 AM | | | | oz) | PDT | | + + + + + | Height | 169 cm (5' 6.54") | 01/04/2011 9:30 AM | | | | | PDT | | + + + + + | Body Mass Index | 27.28 | 01/04/2011 9:30 AM | | | | | PDT | | + + + + + documented in this encounter Patient Instructions Patient Instructions Jhonny Joyce MD - 01/04/2011 10:02 AM PDT1. BICUSPID AORTIC VALV E 2. NO ACTIVITY RESTRICTION 3. EVENT MONITOR TO EVALUATE LIGHT-HEADEDNESS 4. RETURN IN 1 YEAR TO ADULT CLINICElectronically signed by Jhonny Joyce MD at 011 10:02 AM PDT documented in this encounter Progress Notes Jhonny Joyce MD - 01/05/2011 11:24 AM PDT [id number] JOE BRAGG L [id number] Clinic Date: 01/04/2011 Clinic: [facility] Anusha is now 20. She is a young woman who I saw 2 years ago. She is followed with the diagnosis of bicuspid aortic valve with mild stenosis and insufficiency. As well, she has a mildly dilated ascending aorta. When I saw her last, I suggested she try lisinopril. She took this for about a month she says and discontinued it because it made her lightheaded. She has continued to have episodes of being lightheaded which occur every other day. She has never fainted with collapse but feels that she has to either sit down or hold herself against the wall. These are brief episodes and occur at anytime she states. When they are happening, she feels her heart racing, but she does not think that her heart is racing prior to the episode. Otherwise, she has been well. She is working, has a boyfriend, etc. Physical Examination: She is in no distress, without cyanosis. She weighs 77.9 kg, she is 169 cm tall, blood pressure is 113/57 with a heart rate of 54 per minute. Arterial saturation by pulse oximeter at room air is 99%. Palpation of the precordium reveals no overactivity nor thrill. There is a faint thrill that is palpable in the supramanubrial notch. Abdomen: Without hepatosplenomegaly, masses, or tenderness. She has good pulses in both upper and lower extremities. These are not bounding. No edema is noted. No neck vein distention is noted. Lungs: Clear to auscultation. Cardiac auscultation reveals systolic ejection murmur at the third left interspace and into the aortic area. Following this is a high-pitched, blowing, decrescendo diastolic murmur lasting probably half of diastole only. This is of grade 1 to 2 intensity. Her echocardiogram today again shows mild dilation of the ascending aorta and normal left ventricular size, good ventricular function, mildly thickened aortic valve with mild regurgitation and stenosis. Her peak gradient across the aortic valve is 24 mm with a mean gradient of 12. We will plan to see Joe in 1 year in our adult clinic. Because of her episodes of lightheadedness and question whether this might be possibly due to tachyarrhythmia, though I think this is unlikely, I ordered an event monitor which she will take at this time. Jhonny Joyce M.D. Professor of Pediatrics Division of Pediatric Cardiology [facility] and Science [facility] / [id number] / [id number] / [id number] / cc: Sabrina Olvera M.D. [facility] [address] [place] [address] Jhonny Long MD - 01/04/2011 9:56 AM PDToffiThis ce note has been dictated. [facility] #: [id number] ..d documented in th is encounter Plan of Treatment + +------+--------+ + + | Name | Type | Priori | Associated Diagnoses | Order Schedule | | | | ty | | | + +------+--------+ + + | TRANSTHORACIC | ECG | Routin | Congenital | Ordered: 01/04/2011 | | ECHOCARDIOGRAM, | | e | insufficiency of | | | ADULT | | | aortic valve | | [...] + + | CARDIAC EVENT | | 01/04/2011 | | Results for this | | MONITOR | | 12:00 AM | | procedure are in the | | | | PDT | | results section. | + +--------+ + + + documented in this encounter Results CARDIAC EVENT MONITOR (01/04/2011 12:00 AM PDT) + + | Transcriptions | + + | Brandon Armendariz MD - 03/06/2011 9:52 AM PDT [id number] | | 01/04/2011 [id number] JOE Jaeger | | [id number] THIS REPORT WAS CREATED AND FINALIZED IN ANOTHER SYSTEM. THE | | ORIGINALRECORD CAN BE ACCESSED THERE.Name: Anusha Douglas | | Referring MD: JHONNY KELLY.O.B: 1990 Age: 21 Sex: Female Referring Phone: | | [phone]: [phone] Monitor: DAILY Confirming MD: | | NikkiDiagnoses: PalpitationsEnrollment Period: 01/04/2011 thru 02/03/2011Date | | Patient Symptom Patient ActivityJan 04 2011 12:22PM Baseline Sitting | | Impressions: Non-diagnostic Study - no events submitted to allowcorrelation of cardiac | | rhythm to index symptoms. Recommend: Follow up withrequesting provider. REPORT AUTHORED | | BY: Brandon Armendariz MD on 03/04/2011 9:21:09 AMELECTRONICALLY SIGNED BY: | | Brandon Armendariz MD on 03/04/20119:21:09 AM | | | | | |Impressions: Non-diagnostic Study - no events submitted to allow | |correlation of cardiac rhythm to index symptoms. Recommend: Follow up with | |requesting provider. | | | | | |REPORT AUTHORED BY: | | | | | | Brandon Armendariz MD on 03/04/2011 9:21:09 AM | |ELECTRONICALLY SIGNED BY: Brandon Armendariz MD on 03/04/2011 | |9:21:09 AM | | | | | | | | | + + documented in this encounter Visit Diagnoses + + | Diagnosis | + + | Congenital insufficiency of aortic valve | + + | Bicuspid aortic valve Congenital insufficiency of aortic valve | + + documented in this encounter
--- OUTSIDE RECORDS SUMMARY | ~2020-02-03 | XMS | Encounter Summary ---
Demographics + + + | Address | [address] | | | [place] [address] | + + + | Home Phone [...] Author + + + | Author | [facility] | + + + | Organization | [facility] | + + + | Address | Unknown | + + + | Phone | Unavailable | + + + Support + + + + + | Name | Relationship | Address | Phone | + + + + + | Rhona Douglas | ECON | [address] | | | | | [place] | | | | | [address] | | + + + + + | David Douglas | ECON | [address] | | | | | [place] | | | | | [address] | | + + + + + Care Team Providers + +------+ + | Care Corporate Traffic Manager Name | Role | Phone | + +------+ + PCP | Unavailable | + +------+ + Encounter Details +--------+ + + + + | Date | Type | Department | Care Team | Description | +--------+ + + + + | 02/20/ | Results | [facility] at [facility]th | Jhonny Joyce, | | | 2004 | Only | Floor [address] | | | | | | St Mailcode: CDR | | | | | | [facility] [place], [place] | | | | | | [address] | | | | | | [phone] | | | +--------+ + + + [...] | | + +------+--------+ + + | TTE OUTREACH | ECG | Routin | | 02/20/2005 2:25 PM | | (RESERVED FOR | | e | | PDT | | OUTREACH SERVICES | | | | | | ONLY) | | | | | + +------+--------+ + + documented as of this encounter Visit Diagnoses Not on filedocumented in this encounter"
--- OUTSIDE RECORDS SUMMARY | ~2020-02-03 | XMS | Clinical Summary ---
Demographics + + + | Address | [address] | | | [place] [address] | + + + | Home Phone | | + + + | Preferred Language | Unknown | + + + | Marital Status | Single | + + + | Tenriism Affiliation | Unknown | + + + [...] [place] | | | | | [address] | | + + + + + | David Douglas | ECON | [address] | | | | | [place] | | | | | [address] | | + + + + + Care Team Providers + +------+ + | Care It Security Analyst Name | Role | Phone | + +------+ + | Robert Zelaya | PCP | | + +------+ + Source Comments MCKINLEYIZABELLA is fully live on both EpicCare Ambulatory and EpicCare InPatient.[facility]ly [facility] Allergies + + + + + + [...] [place] | OHP | [phone] | | [phone] | [address] | | | PLUS | | [phone] | id | | | OPEN | | esent | | [place], [place] | | | | CARD | | | | [address] | | + +--------+ +--------+ + +--------+ | [facility] | [facility] | [phone] | Effect | | | [...] | | al/Fam | | 1989 | [phone] | [place] [address] | | | nick | | | 3 (Home) | | | | | | | [phone] | | | | | | | 4 (Work) | | + +--------+ +--------+ + + Advance Directives + + + + + | Type | Date Recorded | Patient | Explanation | | | | Tactical Air Defense Controller | | + + + + + | Advance | | | | | Directives and | | | | | Living Will | | | | + + + + + | Power of | | | | | Mangle Operator Garments | | | | + + + + +
--- OUTSIDE RECORDS SUMMARY | ~2020-02-03 | XMS | Encounter Summary ---
Demographics + + + | Address | [address] | | | [place] [address] | + + + | Home Phone [...] + + + | Author | [facility] | + + + | Organization | [facility] | + + + | Address | Unknown | + + + | Phone | Unavailable | + + + Support + + + + + | Name | Relationship | Address | Phone | + + + + + | Rhona Douglas | ECON | [address] | | | | | [place] | | | | | [address] | | + + + + + | David Douglas | ECON | [address] | | | | | [place] | | | | | [address] | | + + + + + Care Team Providers + +------+ + | Care Distribution Tech Name | Role | Phone | + [...] | | | | | | [facility] | | | | | | [address] [facility] | | | | | | [place] | | | | | | [facility] | | | | | | [address] [facility], | | | | | | [place] [address] | | | | | | [phone] | | | +--------+ + + + [...]
--- OUTSIDE RECORDS SUMMARY | ~2020-02-03 | XMS | Encounter Summary ---
Demographics + + + | Address | [address] | | | [place] [address] | + + + | Home Phone [...] Author + + + | Author | [facility] | + + + | Organization | [facility] | + + + | Address | Unknown | + + + | Phone | Unavailable | + + + Support + + + + + | Name | Relationship | Address | Phone | + + + + + | Rhona Douglas | ECON | [address] | | | | | [place] | | | | | [address] | | + + + + + | David Douglas | ECON | [address] | | | | | [place] | | | | | [address] | | + + + + + Care Team Providers + +------+ + | Care Flag Car Driver Name | Role | Phone | [...] Susan | | | | | | [place], [place] | | | | | | [address] | | | +--------+ + + + [...] as of this encounter Progress Notes Interface, Animation Camera Operator In - 11/08/2006 5:01 AM PDT CLINIC DATE: 04/18/94 [facility] PEDIATRIC [facility]ARDIOLOGY [facility] Anusha is now almost [age]. [...] Jhonny Joyce M.D. Pediatric Cardiology VDM:adam cc: [facility] documented in this encounter Plan of Treatment Not on filedocumented as of this encounter Visit Diagnoses Not on filedocumented in this encounter"
--- OUTSIDE RECORDS SUMMARY | ~2020-02-03 | XMS | Encounter Summary ---
Demographics + + + | Address | [address] | | | [place] [address] | + + + | Home Phone | | + + + | Preferred Language | Unknown | + + + | Marital Status | Single | + + + | Hoahaoism Affiliation | Unknown | + + + | Race | White | + + + | Ethnic Group | Not or | + + + Author + + + | Author | [facility] | + + + | Organization | [facility] | + + + | Address | Unknown | + + + | Phone | Unavailable | + + + Support + + + + + | Name | Relationship | Address | Phone | + + + + + | Rhona Douglas | ECON | [address] | | | | | [place] | | | | | [address] | | + + + + + | David Douglas | ECON | [address] | | | | | [place] | | | | | [address] | | + + + + + Care Team Providers + +------+ + | Care Russian Language Instructor Name | Role | Phone | + [...] Clinic | | | | | | [facility], [address] | | | | | | [place], [place] | | | | | | [address] | | | | | | [phone] | | | +--------+ + + + [...] as of this encounter Progress Notes Interface, Freelance Interpreter/Translator In - 09/27/2006 3:02 AM PDT CLINIC DATE: 05/06/96 [facility] Anusha is [...] Joyce M.D. Professor, Pediatric Cardiology VM:zack cc: [facility] [address] [place] [address] documented in this encounter Plan of Treatment Not on filedocumented as of this encounter Visit Diagnoses Not on filedocumented in this encounter"
--- OUTSIDE RECORDS SUMMARY | ~2020-02-03 | XMS | Encounter Summary ---
Demographics + + + | Address | [address] | | | [place] [address] | + + + | Home Phone | | + + + | Preferred Language | Unknown | + + + | Marital Status | Single | + + + | Religion Affiliation | Unknown | + + + [...] [place] | | | | | [address] | | + + + + + | David Douglas | ECON | [address] | | | | | [place] | | | | | [address] | | + + + + + Care Team Providers + +------+ + | Care Platen Press Feeder Name | Role | Phone | + [...] as of this encounter Progress Notes Interface, Lieutenant Ballistics In - 07/21/2006 5:07 AM PSTCLINIC DATE: [...] Joyce M.D. Professor, Pediatric Cardiology DEVANTE/leanne cc: [facility] [address] [place] [email or web address] signed by Interface, Lieutenant Ballistics In at 07/21/2006 5:07 AM PSTdocumented in this encounter Plan of Treatment Not on filedocumented as of this encounter Visit Diagnoses Not on filedocumented in this encounter
--- OUTSIDE RECORDS SUMMARY | ~2020-02-03 | XMS | Encounter Summary ---
Demographics + + + | Address | [address] | | | [place] [address] | + + + | Home Phone | | + + + | Preferred Language | Unknown | + + + | Marital Status | Single | + + + | Jainism Affiliation | Unknown | + + + [...] [place] | | | | | [address] | | + + + + + | David Douglas | MARTA | [place] | | | | | [place] | | | | | [address] | | + + + + + Care Team Providers + +------+ + | Care Storage Consultant Name | Role | Phone | + +------+ + | Robert Zelaya | PCP | | + +------+ + Encounter Details +--------+ + + + + | Date | Type | Department | Care Team | Description | +--------+ + + + + | 02/02/ | Abstract | Cardiology [facility] at | Wilfred Christiansen, | | | 2012 | | [facility] [address] | MD [address] | | | | | Ave [facility] | [place], [place] | | | | | Health and Healing, | [address] | | | | | [facility] | [phone] | | | | | Floor [place], [place] | | | | | | [address] | | | | | | [phone] | | | +--------+ + + + [...]
--- OUTSIDE RECORDS SUMMARY | ~2020-02-03 | XMS | Encounter Summary ---
Demographics + + + | Address | [address] | | | [place] [address] | + + + | Home Phone | | + + + | Preferred Language | Unknown | + + + | Marital Status | Single | + + + | Synagogue Affiliation | Unknown | + + + | Race | White | + + + | Ethnic Group | Not or | + + + Author + + + | Author | [facility] | + + + | Organization | [facility] | + + + | Address | Unknown | + + + | Phone | Unavailable | + + + Support + + + + + | Name | Relationship | Address | Phone | + + + + + | Rhona Douglas | ECON | [address] | | | | | [place] | | | | | [address] | | + + + + + | David Douglas | ECON | [address] | | | | | [place] | | | | | [address] | | + + + + + Care Team Providers + +------+ + | Care Gear Setter Name | Role | Phone | + [...] as of this encounter Progress Notes Interface, Wax Specialist In - 04/24/2006 3:08 AM PDTCLINIC DATE: 02/13/2001 SUBJECTIVE: Anusha is a [age] girl of 10-1/2 who is here today after an interval of 3 years in followup of her congenital heart disease, aortic insufficiency, and mild stenosis. She had been in [place] the last year and at that time [...] be sure that I heard an Anatoliy [place] murmur though I tried. An echocardiogram is [...] bacterial endocarditis. Jhonny Joyce M.D. / IBETH [id number] / [id number] / [id number] / cc: [facility] [address] [place] [id number] signed by Interface, Wax Specialist In at 04/24/2006 3:08 AM PDTdocume nted in this encounter Plan of Treatment Not on filedocumented as of this encounter Visit Diagnoses Not on filedocumented in this encounter
--- OUTSIDE RECORDS SUMMARY | ~2020-02-03 | XMS | Encounter Summary ---
Demographics + + + | Address | [address] | | | [place] [address] | + + + | Home Phone | | + + + | Preferred Language | Unknown | + + + | Marital Status | Single | + + + | Anabaptism Affiliation | Unknown | + + + | Race | White | + + + | Ethnic Group | Not or | + + + Author + + + | Author | [facility] | + + + | Organization | [facility] | + + + | Address | Unknown | + + + | Phone | Unavailable | + + + Support + + + + + | Name | Relationship | Address | Phone | + + + + + | Rhona Douglas | ECON | [address] | | | | | [place] | | | | | [address] | | + + + + + | David Douglas | MARTA | [place] | | | | | [place] | | | | | [address] | | + + + + + Care Team Providers + +------+ + | Care Ice Seller Name | Role | Phone | + [...] | | | [facility] | [place], [place] | | | | | Health and Healing, | [address] | | | | | | [phone] | | | | | Floor [place], [place] | | | | | | [address] | | | | | | [phone] | | | +--------+ + + + [...]
--- OUTSIDE RECORDS SUMMARY | ~2020-02-03 | XMS | Encounter Summary ---
Demographics + + + | Address | [address] | | | [place] [address] | + + + | Home Phone | | + + + | Preferred Language | Unknown | + + + | Marital Status | Single | + + + | Worship Affiliation | Unknown | + + + | Race | White | + + + | Ethnic Group | Not or | + + + Author + + + | Author | [facility] | + + + | Organization | [facility] | + + + | Address | Unknown | + + + | Phone | Unavailable | + + + Support + + + + + | Name | Relationship | Address | Phone | + + + + + | Rhona Douglas | ECON | [address] | | | | | [place] | | | | | [address] | | + + + + + | David Douglas | MARTA | [place] | | | | | [place] | | | | | [address] | | + + + + + Care Team Providers + +------+ + | Care Print Developer Automatic Name | Role | Phone | + [...] [id number] | | | | | | [place], [place] | | | | | | [address] | | | | | | [phone] | | | +--------+ + + + [...]
--- OUTSIDE RECORDS SUMMARY | ~2020-02-03 | XMS | Encounter Summary ---
Demographics + + + | Address | [address] | | | [place] [address] | + + + | Home Phone [...] [place] | | | | | [address] | | + + + + + | David Diaz | MARTA | [place] | | | | | [place] | | | | | [address] | | + + + + + Care Team Providers + +------+ + | Care Credit Collection Specialist Name | Role | Phone | + +------+ + | Sabrina Olvera | PCP | | + +------+ + Encounter Details +--------+ + + + + | Date | Type | Department | Care Team | Description | +--------+ + + + + | 10/23/ | Procedure - | UNKNOWN DEPARTMENT | Other, Faculty | ECHO (ANDREW or TTE) | | 2001 | | [address] [facility] | [phone] | | | | Transcribed | Rafael Susan | | | | | | [place], [place] | | | | | | [address] | | | +--------+ + + + [...] this encounter Progress Notes Other, Faculty - 10/23/2001 12:00 AM PDTAssociated Order(s): TRANSTHORACIC ECHOCARDIOGRAM, ADULT [facility] DATE: 10/23/01 [place], [place] MED REC NO: [id number] NAME: YEMI DIAZ ECHOCARDIOGRAPHY REPORT BIRTHDATE: [birth year] INDICATION FOR STUDY: FOLLOW UP AORTIC STENOSIS UNIT: [place] STUDY NO: [id number] TAPE NO. [id number] REQUEST BY: Anay CONDE MD BP: 100/54 FRAME NO. 15:45-26:03 TECH: AF HT: 146.68 CM WT: 44.10 M-MODE:MM 2-D MEASUREMENT LVID (D)48.0 (S)27.0 %FS 44 IVS (D) 5.0 (S)11.0 LVPW (D) 6.0 (S)11.5 AO BERNADETTE 18.0 AO SIN 24.0 AO ASC 21.0 DOPPLER:M/S PW CW MMHG PW CW MMHG RVIT 0.60 LVIT 1.15 LVOT 0.95 MPA 1.00 ASAO AP 2.45 ASAO SSN 2.20 ASAO RPS 2.80 DSAO 1.45 AO MEAN 13 COLOR FLOW 2D & DOPPLER INTERPRETATION 1. MILD AORTIC STENOSIS. 2. MILD TO MODERATE AORTIC INSUFFIENCY. 3. MILD LEFT VENTRICULAR ENLARGEMENT WITH GOOD SYSTOLIC FUNCTION. SAM SCHUSTER M.D. MB documented in this encou nter Plan of Treatment Not on filedocumented as of this encounter Procedures + +--------+ + + + | Procedure Name | Priori | Date/Time | Associated Diagnosis | Comments | | | ty | | | | + +--------+ + + + | TRANSTHORACIC | | 10/23/2001 | | Results for this | | ECHOCARDIOGRAM, | | 12:00 AM | | procedure are in the | | ADULT | | PDT | | results section. | + +--------+ + + + documented in this encounter Results TRANSTHORACIC ECHOCARDIOGRAM, ADULT (10/23/2001 12:00 AM PDT) + + | Procedure Note | + + | Other, Faculty - 10/23/2001 12:00 AM PDT [facility] DATE: | | 10/23/01 [place], [place] MED REC NO: [id number] NAME: JOE,YEMI ECHOCARDIOGRAPHY | | REPORT BIRTHDATE: [birth year] INDICATION FOR STUDY: FOLLOW UP AORTIC STENOSIS UNIT: | | [place] STUDY NO: [id number] TAPE NO. [id number] REQUEST BY: Anay CONDE MD BP: 100/54 | | FRAME NO. 15:45-26:03 TECH: [place] HT: 146.68 CM WT: 44.10 | | M-MODE:MM | | 2-D MEASUREMENT | | LVID (D)48.0 | | (S)27.0 %FS 44 IVS (D) 5.0 (S)11.0 LVPW (D) 6.0 (S)11.5 AO BERNADETTE 18.0 AO SIN 24.0 AO ASC | | 21.0 | | DOPPLER:M/S PW CW MMHG PW CW MMHG | | RVIT 0.60 | | LVIT 1.15 LVOT 0.95 MPA 1.00 ASAO AP 2.45 ASAO SSN 2.20 ASAO RPS 2.80 DSAO 1.45 AO | | MEAN 13 | | COLOR FLOW 2D & DOPPLER INTERPRETATION | | 1. MILD | | AORTIC STENOSIS. 2. MILD TO MODERATE AORTIC INSUFFIENCY. 3. MILD LEFT VENTRICULAR | | ENLARGEMENT WITH GOOD SYSTOLIC FUNCTION. SAM SCHUSTER M.D. | | | | AO BERNADETTE 18.0 AO SIN 24.0 AO ASC 21.0 | | | | DOPPLER:M/S PW CW MMHG PW CW MMHG | | | | RVIT 0.60 LVIT 1.15 | | LVOT 0.95 | | MPA 1.00 ASAO AP 2.45 | | ASAO SSN 2.20 | | ASAO RPS 2.80 | | DSAO 1.45 | | AO MEAN 13 | | | | COLOR FLOW 2D & DOPPLER INTERPRETATION | | | | 1. MILD AORTIC STENOSIS. | | | | 2. MILD TO MODERATE AORTIC INSUFFIENCY. | | | | 3. MILD LEFT VENTRICULAR ENLARGEMENT WITH GOOD SYSTOLIC FUNCTION. | | | | | | | | | | | | SAM SCHUSTER M.D. | | MB | | | | | + + documented in this encounter Visit Diagnoses Not on filedocumented in this encounter"
--- OUTSIDE RECORDS SUMMARY | ~2020-02-03 | XMS | Encounter Summary ---
Demographics + + + | Address | [address] | | | [place] [address] | + + + | Home Phone [...] [place] | | | | | [address] | | + + + + + | David Douglas | MARTA | [address] [place] | | | | | [place] | | | | | [address] | | + + + + + Care Team Providers + +------+ + | Care Mold Capper Helper Name | Role | Phone | [...] Tra | | | | | at [facility] | [facility] | | | | | [address] | [place] [address] | | | | | [address] | | | | | | [place], 2nd floor | | | | | | [place], [place] | | | | | | [address] | | | | | | [phone] | | | +--------+ + + + [...]
--- OUTSIDE RECORDS SUMMARY | ~2020-02-03 | XMS | Encounter Summary ---
Demographics + + + | Address | [address] | | | [place] [address] | + + + | Home Phone [...] [place] | | | | | [address] | | + + + + + | David Douglas | ECON | [address] | | | | | [place] | | | | | [address] | | + + + + + Care Team Providers + +------+ + | Care Program Production Specialist Name | Role | Phone | + +------+ + PCP | Unavailable | + +------+ + Encounter Details +--------+ + + + + | Date | Type | Department | Care Team | Description | +--------+ + + + + | 01/26/ | Coke Inspector | Pediatric | Jhonny Joyce, | Congenital | | 2007 | | Cardiology at | MD | Insufficiency of | | | | [place] [address] | | Aortic Valve; | | | | [address] | | Congenital Stenosis | | | | Pediatric | | of Aortic Valve | | | | Special[facility]s | | | | | | [place], [place] | | | | | | [address] | | | | | | [phone] | | | +--------+ + + + [...] | ECG | Routin | Congenital | 02/12/2007 2:44 PM | | ECHOCARDIOGRAM, PEDS | | e [...]
--- OUTSIDE RECORDS SUMMARY | ~2020-02-03 | XMS | Encounter Summary ---
Demographics + + + | Address | [address] | | | [place] [address] | + + + | Home Phone | | + + + | Preferred Language | Unknown | + + + | Marital Status | Single | + + + | Gnosticist Affiliation | Unknown | + + + [...] [place] | | | | | [address] | | + + + + + | David Douglas | ECON | [address] | | | | | [place] | | | | | [address] | | + + + + + Care Team Providers + +------+ + | Care Family Consumer Scientist Name | Role | Phone | [...] as of this encounter Progress Notes Interface, Online Publisher In - 03/19/2006 4:32 AM PDTCLINIC DATE: 10/23/2001 [facility] SUBJECTIVE: Anusha is a young girl of 11 who has been followed with the diagnosis of aortic stenosis and regurgitation. Previously, she had been followed in [place] when the family was there for a [...] least. I did not appreciate an Anatoliy [place] murmur. Her echocardiogram was unchanged showing her [...] Joyce M.D. Professor, Pediatric Cardiology LYNN/vito cc: [facility] [address] [place] [email or web address] signed by Interface, Online Publisher In at 03/19/2006 4:32 AM PDTdocumented in this encounter Plan of Treatment Not on filedocumented as of this encounter Visit Diagnoses Not on filedocumented in this encounter"
--- OUTSIDE RECORDS SUMMARY | ~2020-02-03 | XMS | Encounter Summary ---
Demographics + + + | Address | [address] | | | [place] [address] | + + + | Home Phone | | + + + | Preferred Language | Unknown | + + + | Marital Status | Single | + + + | Pentecostalism Affiliation | Unknown | + + + [...] [place] | | | | | [address] | | + + + + + | David Douglas | MARTA | [address] | | | | | [place] | | | | | [address] | | + + + + + Care Team Providers + +------+ + | Care Refrigeration Manager Name | Role | Phone | [...] | | | | | valve | [facility] | [facility] and | | | | | Bicuspid | [place], [place] | Healing, | | | | | aortic valve | [address] | [address], | | | | | Procedures | | 9th Floor | | | | | CONSULT TO | | [place], [place] | | | | | CARDIOLOGY | | [address] | | | | | | | Phone: | | | | | | | [phone] | | | | | | | Fax: | | | | | | | [phone] | +--------+--------+ + + + + Diagnostic [...] y of aortic | [facility] | [place] for | | | | | valve | [facility] | [facility] and | | | | | Bicuspid | [place], [place] | Healing, | | | | | aortic valve | [address] | [address] | | | | | Procedures | | [place], [place] | | | | | | | [address] | | | | | TRANSTHORACI | | Phone: | | | | | C | | [phone] | | | | | ECHOCARDIOGR | [...] | aortic valve; | | | | [facility] | | Bicuspid aortic | | | | [address] | | valve | | | | [place] | | | | | | [facility] | | | | | | 7th Floor [place], | | | | | | [place] [address] | | | | | | [phone] | | | +--------+---------+ + + + [...] Joyce MD - 01/05/2011 11:24 AM PDT [id number] JOE BRAGG L [id number] Clinic Date: 01/04/2011 Clinic: [facility] [...] of Pediatrics Division of Pediatric Cardiology [facility] and Science [facility] / [id number] / [id number] / [id number] / cc: Sabrina Olvera M.D. [facility] [address] [place] [address] Jhonny Long MD - 01/04/2011 9:56 AM PDToffiThis ce note has been dictated. [facility] #: [id number] ..d documented in th is encounter Plan [...] Armendariz MD - 03/06/2011 9:52 AM PDT [id number] | | 01/04/2011 [id number] JOE Jaeger | | [id number] THIS REPORT WAS CREATED AND FINALIZED IN ANOTHER SYSTEM. THE | | ORIGINALRECORD CAN BE ACCESSED THERE.Name: Anusha Douglas | | Referring MD: JHONNY KELLY.O.B: 1990 Age: 21 Sex: Female Referring Phone: | | [phone]: [id number] Monitor: DAILY Confirming MD: | | NikkiDiagnoses: [...]
--- OUTSIDE RECORDS SUMMARY | ~2020-02-03 | XMS | Encounter Summary ---
Demographics + + + | Address | [address] | | | [place] [address] | + + + | Home Phone [...] Author + + + | Author | [facility] | + + + | Organization | [facility] | + + + | Address | Unknown | + + + | Phone | Unavailable | + + + Support + + + + + | Name | Relationship | Address | Phone | + + + + + | Rhona Douglas | ECON | [address] | | | | | [place] | | | | | [address] | | + + + + + | David Douglas | MARTA | [place] | | | | | [place] | | | | | [address] | | + + + + + Care Team Providers + +------+ + | Care Brand Advocate Name | Role | Phone | + [...] | | | | aortic valve | [id number] | [facility] | | | | | | HEALTH CENT[facility] | [address], | | | | | | [address] | [place] | | | | | | [place], | [address] | | | | | | [place] [address] | | | | | | | Phone: | | | | | | | [phone] | | | | | | | Fax: | | | | | | | [phone] | | +--------+--------+ + + + + Encounter Details +--------+ + + + + | Date | Type | Department | Care Team | Description | +--------+ + + + + | 01/21/ | Office | Pediatric | Jhonny Joyce, | | | 2007 | Visit-ECX | Cardiology at | | | | | | [place] [address] | | | | | | [address] | | | | | | Pediatric | | | | | | [facility] | | | | | | [place], [place] | | | | | | [address] | | | | | | [phone] | | | +--------+ + + + [...]
--- OUTSIDE RECORDS SUMMARY | ~2020-02-03 | XMS | Encounter Summary ---
Demographics + + + | Address | [address] | | | [place] [address] | + + + | Home Phone | | + + + | Preferred Language | Unknown | + + + | Marital Status | Single | + + + | Alevism Affiliation | Unknown | + + + [...] [place] | | | | | [address] | | + + + + + | David Douglas | MARTA | [address] | | | | | [place] | | | | | [address] | | + + + + + Care Team Providers + +------+ + | Care Beveler Name | Role | Phone | + [...] [id number] | | | | | | [place], [place] | | | | | | [address] | | | | | | [phone] | | | +--------+ + + + [...]
--- OUTSIDE RECORDS SUMMARY | ~2020-02-03 | XMS | Encounter Summary ---
Demographics + + + | Address | [address] | | | [place] [address] | + + + | Home Phone | | + + + | Preferred Language | Unknown | + + + | Marital Status | Single | + + + | Sabianism Affiliation | Unknown | + + + [...] [place] | | | | | [address] | | + + + + + | David Douglas | ECON | [address] | | | | | [place] | | | | | [address] | | + + + + + Care Team Providers + +------+ + | Care House Calls Nurse Practitioner Name | Role | Phone | + [...] [place] | | | | | | [address] | | | | | | [phone] | | | +--------+ + + + [...]
--- OUTSIDE RECORDS SUMMARY | ~2020-02-03 | XMS | Encounter Summary ---
Demographics + + + | Address | [address] | | | [place] [address] | + + + | Home Phone [...] Author + + + | Author | [facility] | + + + | Organization | [facility] | + + + | Address | Unknown | + + + | Phone | Unavailable | + + + Support + + + + + | Name | Relationship | Address | Phone | + + + + + | Rhona Douglas | ECON | [address] | | | | | [place] | | | | | [address] | | + + + + + | David Douglas | MARTA | [place] | | | | | [place] | | | | | [address] | | + + + + + Care Team Providers + +------+ + | Care Slope Hoist Operator Name | Role | Phone | [...] | Congenital | Wilfred Wilder MD | [facility] [address] | | | | | insufficienc | [address] | [address] | | | | | y of aortic | Ave | [address] | | | | | valve | [place], [place] | [place] | | | | | Congenital | [address] | Building, 2nd | | | | | stenosis of | Phone: | floor | | | | | aortic valve | [phone] | [place], [place] | | | | | Procedures | Fax: | [address] | | | | | | [phone] | Phone: | | | | | TRANSTHORACI | | [phone] | | | | | C | | | | | | | ECHOCARDIOGR | | | | | | | AM, ADULT | | | +--------+--------+ + + + + Encounter Details +--------+ + + + + | Date | Type | Department | Care Team | Description | +--------+ + + + + | 12/26/ | 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 [place] | | of aortic valve | | | | [address] | | | | | | [phone] | | | +--------+ + + + [...] DEPT OF | [address] | [place], [place] | | | CARDIOLOGY | [address] | [address] | | + + + + + [...]
--- OUTSIDE RECORDS SUMMARY | ~2020-02-03 | XMS | Encounter Summary ---
Demographics + + + | Address | [address] | | | [place] [address] | + + + | Home Phone | | + + + | Preferred Language | Unknown | + + + | Marital Status | Single | + + + | Rastafarian Affiliation | Unknown | + + + | Race | Unknown | + + + | Ethnic Group | Unknown | + + + Author + + + | Author | [facility] | | | and Mario Albertoana | + + + | Organization | [facility] | | | and [place] | [...] [place] | | | | | [address] | | + + + + + Care Team Providers + +------+ + | Care School Community Relations Coordinator Name | Role | Phone | + +------+ + | Robert Zelaya PA-C | PCP | | + +------+ + Encounter Details +--------+ + + + + | Date | Type | Department | Care Team | Description | +--------+ + + + + | 09/01/ | Abstract | [facility] | Alin Romano | Bicuspid aortic | | 2012 | | CARDIOLOGY [address] | MD Rodrigo [address] | valve (Primary Dx); | | | | [place], | [address] [place] | Pre-syncope | | | | [place] [address] | [place] [address] | | | | | [phone] | [phone] | | | | | | | [...] of aortic valve | + + | Pre-syncope Syncope and collapse | + + documented in this encounter"
--- OUTSIDE RECORDS SUMMARY | ~2020-02-03 | XMS | Encounter Summary ---
Demographics + + + | Address | [address] | | | [place] [address] | + + + | Home Phone | | + + + | Preferred Language | Unknown | + + + | Marital Status | Single | + + + | Roman Catholic Affiliation | Unknown | + + [...] [place] | | | | | [address] | | + + + + + | David Douglas | MARTA | [place] | | | | | [place] | | | | | [address] | | + + + + + Care Team Providers + +------+ + | Care Freight And Passenger Agent Name | Role | Phone | + [...] | | | | | valve | [facility] | Health and | | | | | Bicuspid | [place], [place] | Healing, | | | | | aortic valve | [address] | Building [address], | | | | | Procedures | | 9th Floor | | | | | | | [place], [place] | | | | | TRANSTHORACI | | [address] | | | | | C | | Phone: | | | | | ECHOCARDIOGR | | [phone] | | | | | AM, ADULT | | Fax: | | | | | | | [phone] | +--------+--------+ + + + + Encounter Details +--------+---------+ + + + | Date | Type | Department | Care Team | Description | +--------+---------+ + + + | 03/01/ | Office | Cardiology [facility] at | Wilfred Christiansen, | Bicuspid aortic | | 2015 | Visit | [facility] [address] | MD [address] | valve (Primary Dx); | | | | Ave [facility] for | [place], [place] | Aortic insufficiency | | | | Health and Healing, | [address] | due to bicuspid | | | | | [phone] | aortic valve; | | | | Floor [place], [place] | | Tobacco abuse | | | | [address] | | | | | | [phone] | | | +--------+---------+ + + + [...] Important Phone Numbers Adult Congenital Cardiology Office: [phone] (ask for Brenda) Clinic Nurse, Noemy Wang: [phone] Clinic [phone] Echo lab [phone] Radiology Scheduling (including MRI): [phone] Pulmonary function [phone] tag and label cutter [phone] After hours emergency: [phone] Long distance: Website: [email or web address] We support the Adult Congenital Heart Association and invite you to be a member, to promote patient peer support, education, community events, patient advocacy, and research in congen ital heart disease. 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 Son is [...] Date RATE 63 03/01/2015 ATRIALRATE 61 03/01/2015 GA 164 03/01/2015 QRS 96 03/01/2015 QT 408 03/01/2015 PAXIS -10 03/01/2015 RAXIS -9 03/01/2015 TAXIS 34 03/01/2015 Echo yesterday 1. The left ventricular cavity size is normal. 2. There is no left ventricular hypertrophy. 3. The LV ejection fraction is normal. 4. The aortic valve is likely inupiat bicuspid. 5. Mild aortic valve stenosis (see [...]
--- OUTSIDE RECORDS SUMMARY | ~2020-02-03 | XMS | Encounter Summary ---
Demographics + + + | Address | [address] | | | [place] [address] | + + + | Home Phone [...] Author + + + | Author | [facility] | + + + | Organization | [facility] | + + + | Address | Unknown | + + + | Phone | Unavailable | + + + Support + + + + + | Name | Relationship | Address | Phone | + + + + + | Rhona Diaz | ECON | [address] | | | | | [place] | | | | | [address] | | + + + + + | David Diaz | MARTA | [place] | | | | | [place] | | | | | [address] | | + + + + + Care Team Providers + +------+ + | Care Audience Coordinator Name | Role | Phone | [...] TTE) | | 2001 | | [address] [facility] | [phone] | | | | Transcribed | Rafael Susna | | | | | | [place], [place] | | | | | | [address] | | | +--------+ + + + [...] 12:00 AM PDTAssociated Order(s): TRANSTHORACIC ECHOCARDIOGRAM, ADULT [facility] DATE: 10/23/01 [place], [place] MED REC NO: [id number] NAME: YEMI DIZA ECHOCARDIOGRAPHY REPORT BIRTHDATE: [birth year] INDICATION FOR STUDY: [...] Other, Faculty - 10/23/2001 12:00 AM PDT [facility] DATE: | | 10/23/01 [place], [place] MED REC NO: [id number] NAME: JOE,YEMI ECHOCARDIOGRAPHY | | REPORT BIRTHDATE: [...]
--- OUTSIDE RECORDS SUMMARY | ~2020-02-03 | XMS | Encounter Summary ---
Demographics + + + | Address | [address] | | | [place] [address] | + + + | Home Phone | | + + + | Preferred Language | Unknown | + + + | Marital Status | Single | + + + | Mosque Affiliation | Unknown | + + + | Race | White | + + + | Ethnic Group | Not or | + + + Author + + + | Author | [facility] | + + + | Organization | [facility] | + + + | Address | Unknown | + + + | Phone | Unavailable | + + + Support + + + + + | Name | Relationship | Address | Phone | + + + + + | Rhona Douglas | ECON | [address] | | | | | [place] | | | | | [address] | | + + + + + | David Douglas | MARTA | [place] | | | | | [place] | | | | | [address] | | + + + + + Care Team Providers + +------+ + | Care Director Of Clinical Applications Name | Role | Phone | + [...] | | | insufficienc | | [address] [place], | | | | | y) | | [place] | | | | | | | [address] | +--------+--------+ + + + + Encounter Details +--------+---------+ + + + | Date | Type | Department | Care Team | Description | +--------+---------+ + + + | 02/06/ | Office | Pediatric | Jhonny Joyce, | | | 2008 | Visit | Cardiology at | | | | | | [place] [address] | | | | | | [address] | | | | | | Pediatric | | | | | | [facility]s | | | | | | [place], [place] | | | | | | [address] | | | | | | [phone] | | | +--------+---------+ + + + [...]
--- OUTSIDE RECORDS SUMMARY | ~2020-02-03 | XMS | Encounter Summary ---
Demographics + + + | Address | [address] | | | [place] [address] | + + + | Home Phone [...] [place] | | | | | [address] | | + + + + + | David Diaz | MARTA | [place] | | | | | [place] | | | | | [address] | | + + + + + Care Team Providers + +------+ + | Care Health Information Administrator Name | Role | Phone | + [...] TTE) | | 2000 | | [address] [facility] | [phone] | | | | Transcribed | Rafael Susan | | | | | | [place], [place] | | | | | | [address] | | | +--------+ + + + [...] 12:00 AM PDTAssociated Order(s): TRANSTHORACIC ECHOCARDIOGRAM, ADULT [facility] DATE: 02/13/01 [place] MED REC NO: [id number] NAME: ANUSHA DIAZ ECHOCARDIOGRAPHY REPORT BIRTHDATE: [birth year] [...] [facility] DATE: | | 02/13/01 [place] MED REC NO: [id number] NAME: ANUSHA DIAZ ECHOCARDIOGRAPHY | | REPORT [...] INSUFFICIENCY AND TRICUSPID REGURGITATION. | | MB ADRI ESPINOSA M.D. | | AO BERNADETTE 21.0 [...]
--- OUTSIDE RECORDS SUMMARY | ~2020-02-03 | XMS | Encounter Summary ---
Demographics + + + | Address | [address] | | | [place] [address] | + + + | Home Phone | | + + + | Preferred Language | Unknown | + + + | Marital Status | Single | + + + | Buddhist Affiliation | Unknown | + + + | Race | White | + + + | Ethnic Group | Not or | + + + Author + + + | Author | [facility] | + + + | Organization | [facility] | + + + | Address | Unknown | + + + | Phone | Unavailable | + + + Support + + + + + | Name | Relationship | Address | Phone | + + + + + | Rhona Douglas | ECON | [address] | | | | | [place] | | | | | [address] | | + + + + + | David Douglas | MARTA | [address] | | | | | [place] | | | | | [address] | | + + + + + Care Team Providers + +------+ + | Care Custom Bow Maker Name | Role | Phone | [...] Description | +--------+--------+ + + + | 09/16/ | Refill | Pediatric | Jhonny Joyce, | Refill Request | | 2007 | | Cardiology at | | | | | | [place] | | | | | | [facility] | | | | | | [address] | | | | | | [place] | | | | | | [facility] | | | | | | 7th Floor [place], | | | | | | [place] [address] | | | | | | [phone] | | | +--------+--------+ + + + [...]
--- OUTSIDE RECORDS SUMMARY | ~2020-02-03 | XMS | Encounter Summary ---
Demographics + + + | Address | [address] | | | [place] [address] | + + + | Home Phone | | + + + | Preferred Language | Unknown | + + + | Marital Status | Single | + + + | Confucianism Affiliation | Unknown | + + + [...] [place] | | | | | [address] | | + + + + + | David Douglas | ECON | [address] | | | | | [place] | | | | | [address] | | + + + + + Care Team Providers + +------+ + | Care Benefit Authorizer Name | Role | Phone | + +------+ + PCP | Unavailable | + +------+ + Encounter Details +--------+ + + + + | Date | Type | Department | Care Team | Description | +--------+ + + + + | 01/26/ | Audio Director | Pediatric | Jhonny Joyce, | Congenital | | 2007 | | Cardiology at | MD | Insufficiency of | | | | [place] [address] | | Aortic Valve; | | | | [address] | | Congenital Stenosis | | | | Pediatric | | of Aortic Valve | | | | Special[facility]s | | | | | | [place], [place] | | | | | | [address] | | | | | | [phone] | | | +--------+ + + + [...]
--- OUTSIDE RECORDS SUMMARY | ~2020-02-03 | XMS | Encounter Summary ---
Demographics + + + | Address | [address] | | | [place] [address] | + + + | Home Phone | | + + + | Preferred Language | Unknown | + + + | Marital Status | Single | + + + | Jehovah'S Witness Affiliation | Unknown | + + + [...] [place] | | | | | [address] | | + + + + + | David Douglas | MRATA | [address] | | | | | [place] | | | | | [address] | | + + + + + Care Team Providers + +------+ + | Care Survey Interviewer Name | Role | Phone | + [...] insufficienc | [address] | | | | | y of aortic | [address] | [facility] | | | | | valve | [facility] | | | | | Congenital | [facility] | [facility] 8th | | | | | stenosis of | Hospital 7th | Floor | | | | | aortic valve | Floor | [place], [place] | | | | | Procedures | [place], [place] | [address] | | | | | | [address] | Phone: | | | | | TRANSTHORACI | Phone: | [phone] | | | | | C | [phone] | Fax: | | | | | ECHOCARDIOGR | Fax: | [phone] | | | | | AM, PEDS | [phone] | | +--------+--------+ + + + + Encounter Details +--------+ + + + + | Date | Type | Department | Care Team | Description | +--------+ + + + + | 01/03/ | [place] | Pediatric | Jhonny Joyce, | Congenital | | 2009 | | Cardiology at | MD | insufficiency of | | | | [place] | | aortic valve; | | | | [facility] | | Congenital stenosis | | | | [address] | | of aortic valve | | | | [facility] | | | | | | [facility] | | | | | | 7th Floor [place], | | | | | | [place] [address] | | | | | | [phone] | | | +--------+ + + + [...]
--- OUTSIDE RECORDS SUMMARY | ~2020-02-03 | XMS | Encounter Summary ---
Demographics + + + | Address | [address] | | | [place] [address] | + + + | Home Phone | | + + + | Preferred Language | Unknown | + + + | Marital Status | Single | + + + | Amish Affiliation | Unknown | + + + [...] [place] | | | | | [address] | | + + + + + | David Douglas | ECON | [address] | | | | | [place] | | | | | [address] | | + + + + + Care Team Providers + +------+ + | Care Piping Design Specialist Name | Role | Phone | + +------+ + PCP | Unavailable | + +------+ + Encounter Details +--------+ + + + + | Date | Type | Department | Care Team | Description | +--------+ + + + + | 02/20/ | Results | [facility] 7th | Jhonny Joyce, | | | 2004 | Only | Floor [address] | | | | | | St Mailcode: CDR | | | | | | [facility] [place], [place] | | | | | | [address] | | | | | | [phone] | | | +--------+ + + + [...]
--- OUTSIDE RECORDS SUMMARY | ~2020-02-03 | XMS | Encounter Summary ---
Demographics + + + | Address | [address] | | | [place] [address] | + + + | Home Phone | | + + + | Preferred Language | Unknown | + + + | Marital Status | Single | + + + | Yazidism Affiliation | Unknown | + + + [...] [place], [place] | | | | | [address] | | + + + + + | David Douglas | ECON | [address] | | | | | [place], [place] | | | | | [address] | | + + + + + Care Team Providers + +------+ + | Care Manager Sign Name | Role | Phone | + [...] as of this encounter Progress Notes Interface, Director Of Epidemiology In - 03/12/2005 5:01 AM [facility] [id number] JOE ANUSHA Clinic Date: 02/22/2005 Clinic: [facility] Anusha is now almost 15. She is a young girl with aortic valve abnormality manifest by mild stenosis and evrh-xp-accnyark regurgitation. She has been on lisinopril 5 [...] diastole. I did not hear an Anatoliy Ames murmur at the apex. I did not [...] a mild aortic gradient in systole and fusu-ia-iavghuuf aortic valve regurgitation. Her ventricle measured 55 [...] Professor of Pediatrics Division of Pediatric Cardiology [facility] / [id number] / [id number] / [id number] / cc: Praveen Champagne, DO [address] [place] [address] Electronically signed by Jhonny Joyce 03-11-2005 07:59:38 AM documented i n this encounter Plan of Treatment Not on filedocumented as of this encounter Visit Diagnoses Not on filedocumented in this encounter"
--- OUTSIDE RECORDS SUMMARY | ~2020-02-03 | XMS | Encounter Summary ---
Demographics + + + | Address | [address] | | | [place] [address] | + + + | Home Phone [...] [place] | | | | | [address] | | + + + + + | David Douglas | MARTA | [address] [place] | | | | | [place] | | | | | [address] | | + + + + + Care Team Providers + +------+ + | Care Riveting Machine Operator Name | Role | Phone | + +------+ + | Sabrina Olvera | PCP | | + +------+ + Encounter Details +--------+ + + + + | Date | Type | Department | Care Team | Description | +--------+ + + + + | 02/20/ | Commercial Announcer | Pediatric | Jhonny Joyce, | Congenital | | 2007 | | Cardiology at | MD | Insufficiency of | | | | [place] [address] | | Aortic Valve; | | | | [address] | | Congenital Stenosis | | | | Pediatric | | of Aortic Valve | | | | [facility]s | | | | | | [place], [place] | | | | | | [address] | | | | | | [phone] | | | +--------+ + + + [...]
--- OUTSIDE RECORDS SUMMARY | ~2020-02-03 | XMS | Encounter Summary ---
Demographics + + + | Address | [address] | | | [place] [address] | + + + | Home Phone [...] [place] | | | | | [address] | | + + + + + | David Doulgas | ECON | [address] | | | | | [place] | | | | | [address] | | + + + + + Care Team Providers + +------+ + | Care Handicrafts Teacher Name | Role | Phone | + +------+ + | Sabrina Olvera | PCP | | + +------+ + Encounter Details +--------+ + + + + | Date | Type | Department | Care Team | Description | +--------+ + + + + | 02/03/ | Hospital | Pediatric Echo Lab | | | | 2008 | Encounter | at [place] | | | | | | [facility] | | | | | | [address] [facility] | | | | | | [place] | | | | | | [facility] | | | | | | 8th [facility], | | | | | | [place] [address] | | | | | | [phone] | | | +--------+ + + + [...] + + + | TRANSTHORACIC | | 02/03/2009 | | Results for this | | ECHOCARDIOGRAM, PEDS | | 12:00 AM | | procedure are in the | | | | PDT | | results section. | + +--------+ + + + documented in this encounter Results TRANSTHORACIC ECHOCARDIOGRAM, PEDS (02/03/2009 12:00 AM PDT) + + + | Narrative | Performed At | + + + | | | + + + + + | Procedure Note | + + | Other, Faculty - 02/03/2009 12:00 AM PDT | | | + + documented in this encounter Visit Diagnoses Not on filedocumented in this encounter"
--- OUTSIDE RECORDS SUMMARY | ~2020-02-03 | XMS | Encounter Summary ---
Demographics + + + | Address | [address] | | | [place] [address] | + + + | Home Phone [...] [place] | | | | | [address] | | + + + + + | David Douglas | MARTA | [address] | | | | | [place] | | | | | [address] | | + + + + + Care Team Providers + +------+ + | Care Tape Maker Name | Role | Phone | [...] Ave | | | | | [facility] | [place], [place] | | | | | Health and Healing, | [address] | | | | | [facility] | [phone] | | | | | Floor [place], [place] | | | | | | [address] | | | | | | [phone] | | | +--------+ + + + [...]
--- OUTSIDE RECORDS SUMMARY | ~2020-02-03 | XMS | Encounter Summary ---
Demographics + + + | Address | [address] | | | [place] [address] | + + + | Home Phone [...] + + + | Author | [facility] | + + + | Organization | [facility] | + + + | Address | Unknown | + + + | Phone | Unavailable | + + + Support + + + + + | Name | Relationship | Address | Phone | + + + + + | Rhona Douglas | ECON | [address] | | | | | [place] | | | | | [address] | | + + + + + | David Douglas | ECON | [address] | | | | | [place] | | | | | [address] | | + + + + + Care Team Providers + +------+ + | Care Web Applications Developer Name | Role | Phone | + [...] [place] | | | | | | [facility] | | | | | | [address] [facility] | | | | | | [place] | | | | | | [facility] | | | | | | 8th [facility], | | | | | | [place] [address] | | | | | | [phone] | | | +--------+ + + + [...]
--- OUTSIDE RECORDS SUMMARY | ~2020-02-03 | XMS | Encounter Summary ---
Demographics + + + | Address | [address] | | | [place] [address] | + + + | Home Phone [...] + + + | Author | [facility] | + + + | Organization | [facility] | + + + | Address | Unknown | + + + | Phone | Unavailable | + + + Support + + + + + | Name | Relationship | Address | Phone | + + + + + | Rhona Douglas | ECON | [address] | | | | | [place] | | | | | [address] | | + + + + + | David Douglas | MARTA | [address] | | | | | [place] | | | | | [address] | | + + + + + Care Team Providers + +------+ + | Care Home Inspector Name | Role | Phone | [...] | | | | | [address] | | | | | | [place] | | | | | | [facility] | | | | | | 7th Floor [place], | | | | | | [place] [address] | | | | | | [phone] | | | +--------+--------+ + + + [...]
[2020-02-03] MEDS ORDERED: UNISOM25 MG PO (20:04)
[2020-02-03] MEDS ORDERED: PYRIDOXINE HCL50 MG PO (20:05)
== END 2020-02-03 21:56 | disposition home or self-care (01) ==
LOC: ED 19:50
DX: O20.0 Threatened abortion (principal); Z3A.10 10 weeks gestation of pregnancy
CPT/HCPCS: 85018; 86900; 86901; 99284

== ENCOUNTER 2020-08-19 04:43 | Inpatient (IN) | payer OTHER ==
[~2020-08-19] VITALS: Ht 170.2 cm; Wt 115.7 kg
[~2020-08-19 04:43] MED LIST changes: +PYRIDOXINE HCL50 MG PO; +UNISOM25 MG PO
--- NOTE | 2020-08-19 06:19 | NUR ---
SWABBED BOTH NARES FOR RAPID COVID TEST
--- NOTE | 2020-08-19 12:38 | NUR ---
08/19/20 1238 Amelie Long 1230: PT ARRIVES TO [facility] ROOM 104. SHE IS AWAKE. BABE AND SPOUSE ARE IN THE ROOM. MOM IS SITUATED, THEN BABE IT PUT TO MOM'S CHEST WITH [facility] RN HAKAN PRESENT.
--- NOTE | 2020-08-20 12:01 | PR ---
[facility] [address] [place] [address] Signed PP Progress Notes Datetime Report Generated by CPN: 08/20/2020 12:01 SUBJECTIVE: [id number] Pain: Within Normal Limits Nausea/Vomiting: Denies Vital Signs: [id number] Vital Signs: Reviewed; Within Normal Limits Notable Details: PP Hgb/Hct = 10.4/31.8 Abdomen/Uterus: Normal Lochia: Normal Extremities: Normal Incision: Normal IMPRESSION/PLAN/PROCEDURES: [id number] Impression: Normal Progression Plan: Continue Present Management Procedures: None Progress Notes: Doing well, up in chair, showered without difficulty. Signing Physician: Salena Bah MD Copies: ~ *Electronically Signed* 08/20/20 1201 SALENA BAH MD PATIENT NAME: YEMI DIAZ PROGRESS NOTE DATE OF : 89 PHYSICIAN: SALENA BAH MD RPT #: [id number] REPORT IS CONFIDENTIAL AND NOT TO BE RELEASED WITHOUT AUTHORIZATION
--- NOTE | 2020-08-21 12:33 | PR ---
[facility] [address] [place] [address] Signed PP Progress Notes Datetime Report Generated by CPN: 08/21/2020 12:33 SUBJECTIVE: [id number] Pain: Within Normal Limits Nausea/Vomiting: Denies Vital Signs: [id number] Vital Signs: Reviewed; Within Normal Limits Notable Details: PP Hgb/Hct = 10.4/31.8 Abdomen/Uterus: Normal Lochia: Normal Extremities: Normal Incision: Normal IMPRESSION/PLAN/PROCEDURES: [id number] Impression: Normal Progression Plan: Discharge Procedures: None Progress Notes: Doing well, without complaint, ready to go home. Signing Physician: Salena Bah MD Copies: ~ *Electronically Signed* 08/21/20 1233 SALENA BAH MD PATIENT NAME: YEMI DIAZ PROGRESS NOTE DATE OF : 89 PHYSICIAN: SALENA BAH MD RPT #: [id number] REPORT IS CONFIDENTIAL AND NOT TO BE RELEASED WITHOUT AUTHORIZATION
--- NOTE | 2020-08-21 12:37 | OR ---
[facility] [address] [place] [id number] Signed DATE OF OPERATION: 08/19/2020 SURGEON: Pb Bragg MD PREOPERATIVE DIAGNOSES: 1. Complete breech presentation. 2. Term labor. 3. Spontaneous rupture of membranes. POSTOPERATIVE DIAGNOSES: 1. Complete breech presentation. 2. Term labor. 3. Spontaneous rupture of membranes. PROCEDURE: Primary low transverse segment section, delivery of live male infant. METHODS ANALYST: Dr. Lobato ANESTHESIA: Spinal. ESTIMATED BLOOD LOSS: 500 mL. COMPLICATIONS: None. DRAINS: Anthony to bladder. FINDINGS: Live male infant, Apgars 8 and 9. Weight 7 pounds 13 ounces. Nuchal cord x3, tight with the fetus in right sacrum posterior. Complete breech presentation. Normal uterus. Normal tubes and ovaries bilateral. DESCRIPTION OF PROCEDURE: The patient was brought to the operating room, placed in supine position. After adequate spinal anesthesia was obtained, she was prepped and draped in the usual sterile Electronically Signed By: PB BRAGG MD 08/21/20 1237 PATIENT NAME: YEMI DIAZ OPERATIVE REPORT DATE OF : [birth year] REPORT #: [id number] PHYSICIAN: PB BRAGG MD PCP: [facility] REPORT IS CONFIDENTIAL AND NOT TO BE RELEASED WITHOUT AUTHORIZATION [address] [address] Signed fashion. A Pfannenstiel skin incision made with scalpel and extended through the subcutaneous tissue with the Bovie. The fascia was nicked with scalpel and extended in transverse fashion using curved scissors. The underlying abdominal musculature was bluntly and sharply from the fascia above and below the incision. The abdominal musculature was then bluntly and sharply along the midline. The peritoneum was grasped with hemostats, elevated, nicked with curved scissors and extended in vertical fashion using curved scissors. The Storm self-retaining retractor was inserted into the incision and tightened in place. The lower uterine segment was carefully was identified and noted to be broad enough, so scalpel used to balwinder the lower uterine segment in the midline and finger dissection used to extend the incision in a transverse fashion. was noted to be in a complete breech RSP presentation and one foot came out of the incision, so this leg was delivered. The other leg delivered with the back down. Attempt was made to turn baby back up, but it was difficult to turn, so the baby was delivered up to the arms and arms individually delivered, and again attempt made to turn back up. The cord was noted to be around the neck three times and tight, so after trying to turn the fetus both the directions to get back up, finally back was up and the head delivered without undue traction. The cord was removed and the cord doubly clamped and cut. The infant was passed off the table to the awaiting nurse. Cord gases were obtained and then the placenta manually removed and uterine cavity explored with a lap pad to remove any retained membranes. An angle stitch of 0-Monocryl was placed at one end of the incision and running locking stitch of 0-Monocryl suture starting at the other end used to close the incision. A second running stitch of 0-Monocryl was used to imbricate the first layer. Good hemostasis was noted. The entire pelvis was irrigated, suctioned, and examined, and any bleeding spots cauterized with Bovie. The Storm retractor was removed and the pelvis irrigated, suctioned, and examined and no bleeding was noted. A sheet of ACell was placed over the lower uterine segment to help with healing, and then the anterior wall peritoneum closed using running stitch of 2-0 Vicryl suture. The abdominal wall incision was irrigated, suctioned, and examined, and any bleeding spots cauterized with the Bovie. The abdominal musculature was reapproximated using interrupted stitches of 0-Vicryl suture. Powdered ACell was then sprinkled on the abdominal musculature to help with healing. The fascia was then closed using two running stitch of 0-Vicryl suture meeting in the midline. Subcutaneous tissue was irrigated, suctioned, and examined, and any bleeding spots cauterized with the Bovie. Subcutaneous tissue was closed using interrupted stitches of 3-0 Vicryl suture. The skin reapproximated using skin clips. The patient tolerated the procedure well and went to the recovery room in good condition. The sponge, needle, and instrument count correct at the end of the procedure. Cord gases were sent to lab. Electronically Signed By: PB BRAGG MD 08/21/20 1237 PATIENT NAME: YEMI DIAZ OPERATIVE REPORT DATE OF : 89 REPORT #: [id number] PHYSICIAN: PB BRAGG MD PCP: [facility] REPORT IS CONFIDENTIAL AND NOT TO BE RELEASED WITHOUT AUTHORIZATION [address] [address] Signed MD DANILO Martin/MODL /[id number] Copies: ~ Electronically Signed By: PB BRAGG MD 08/21/20 1237 PATIENT NAME: YEMI DIAZ OPERATIVE REPORT DATE OF : [birth year] REPORT #: [id number] PHYSICIAN: PB BRAGG MD PCP: [facility] REPORT IS CONFIDENTIAL AND NOT TO BE RELEASED WITHOUT AUTHORIZATION
== END 2020-08-21 12:55 | disposition home or self-care (01) | DRG 787 ==
LOC: FBCO 04:43 → FBC 04:50
PROVIDERS: ADMIT General Practice; ATTEND General Practice
PROC: 10D00Z1 Extraction of Products of Conception, Low, Open Approach (ICD-10-PCS; principal; 2020-08-19 11:26)
DX: O32.1XX0 Maternal care for breech presentation, not applicable or unspecified (principal); Q23.0 Congenital stenosis of aortic valve; O99.324 Drug use complicating childbirth; Z3A.38 38 weeks gestation of pregnancy; Z37.0 Single live birth; O99.892 Other specified diseases and conditions complicating childbirth; O69.1XX0 Labor and delivery complicated by cord around neck, with compression, not applicable or unspecified; Z20.822 Contact with and (suspected) exposure to COVID-19; F17.210 Nicotine dependence, cigarettes, uncomplicated; O28.2 Abnormal cytological finding on antenatal screening of mother; F12.90 Cannabis use, unspecified, uncomplicated
CPT/HCPCS: 01961; 36415; 82803; 85027; A9270; C9803; J0456; J0690; J1644; J2001; J2274; J2370; J2405; J2590; J3010; J7060; J7121; U0003